=== PATIENT | male | born 1955 | race Caucasian/White ===

== ENCOUNTER → 2021-07-05 09:39 | Outpatient (CLI) | payer BC, SELFPAY ==
--- NOTE | 2021-07-05 09:43 | DI.RAD.S_ITS ---
PROCEDURE: XR KNEE RT 3V INDICATIONS: bilateral knee pain TECHNIQUE: 3 views of the knee were acquired. COMPARISON: None. FINDINGS: Bones: No fractures or dislocations. No suspicious bony lesions. Soft tissues: No joint effusion. No suspicious soft tissue calcifications. IMPRESSION: No significant osseous abnormality. Dictated by: Todd De La Paz M.D. on 07/05/2021 at 10:21 Approved by: Todd De La Paz M.D. on 07/05/2021 at 10:21
--- NOTE | 2021-07-05 09:43 | DI.RAD.S_ITS ---
PROCEDURE: XR KNEE LT 3V INDICATIONS: bilateral knee pain TECHNIQUE: 3 views of the knee were acquired. COMPARISON: None. FINDINGS: Bones: No fractures or dislocations. No suspicious bony lesions. Soft tissues: No joint effusion. No suspicious soft tissue calcifications. IMPRESSION: No significant osseous abnormality. Dictated by: Todd De La Paz M.D. on 07/05/2021 at 10:20 Approved by: Todd De La Paz M.D. on 07/05/2021 at 10:21
[2021-07-05 11:00] LABS: Add Manual Diff / Slide Review NO; Basophils Absolute Auto 100 /uL (0-100); Basophils Percent Auto 1.8 % (0-2); Eosinophils Absolute Auto 200 /uL (0-450); Eosinophils Percent Auto 3.4 % (2-4); Hematocrit 47.2 % (41-53); Hemoglobin 16.1 g/dL (13.5-17.5); Lymphocytes Absolute Auto 1200 /uL (1100-4500); Lymphocytes Percent Auto 25.9 % (25-40); Mean Corpuscular HGB Conc 34.1 % (30-36); Mean Corpuscular Hemoglobin 28.8 PG (26-34); Mean Corpuscular Volume 84.5 fL (80-100); Monocytes Absolute Auto 400 /uL (0-900); Monocytes Percent Auto 8.2 % (3-14); Neutrophils Absolute Auto 2700 /uL (1500-7000); Neutrophils Percent Auto 60.7 % (50-75); Platelet Count 195 X10^3/uL (150-400); Red Blood Cell Count 5.58 X10^6/uL (4.5-5.9); Red Cell Distribution Width 13.3 % (11.6-14.8); White Blood Cell Count 4.4 X10^3/uL (4.5-11.0)
[2021-07-05 11:21] LABS: Alanine Aminotransferase 27 IU/L (<50); Albumin 4.3 g/dL (3.5-5.0); Albumin Globulin Ratio 1.6 (1.0-2.8); Alkaline Phosphatase 54 U/L (38-126); Aspartate Aminotransferase 30 IU/L (17-59); BUN Creatinine Ratio 14.8 (6-22); Bilirubin Total 0.6 mg/dL (0.2-1.3); Blood Urea Nitrogen 13 mg/dL (9-20); Calcium 9.5 mg/dL (8.4-10.2); Carbon Dioxide 30 mmol/L (22-32); Chloride 106 mmol/L (98-107); Cholesterol 172 mg/dL (140-199); Estimated Glomerular Filt Rate > 60.0 mL/min (>60); Globulin 2.7 g/dL (1.7-4.1); Glucose 109 mg/dL (80-110); HDL Cholesterol 39 mg/dL (40-60); HEMOLYSIS 15 (0-50); LDL Cholesterol Calculated 118 mg/dL (<100); Potassium 4.1 mmol/L (3.4-5.1); Sodium 141 mmol/L (137-145); Triglycerides 77 mg/dL (35-150)
[2021-07-05 11:57] LABS: Prostate Specific Antigen Scrn < 0.064 ng/mL (0.1-4.0)
[2021-07-08 15:25] LABS: Percent Free Testosterone 2.77 % (1.50-4.20); Testosterone Free 13.36 ng/dL (5.00-21.00); Testosterone Total 482.2 ng/dL (264.0-916.0)
== END ==
PROVIDERS: PCP Family Medicine; Referring Provider Family Medicine; Visit Provider Family Medicine
DX: M25.561 Pain in right knee (principal); M25.562 Pain in left knee; C61 Malignant neoplasm of prostate; E34.9 Endocrine disorder, unspecified; E78.5 Hyperlipidemia, unspecified; R06.2 Wheezing
CPT/HCPCS: 36415; 73562; 80053; 80061; 84402; 84403; 85025; G0103

== ENCOUNTER → 2022-02-20 10:32 | Outpatient (CLI) | payer BC, SELFPAY ==
[2022-02-20 11:56] LABS: Add Manual Diff / Slide Review NO; Basophils Absolute Auto 100 /uL (0-100); Basophils Percent Auto 1.2 % (0-2); Eosinophils Absolute Auto 100 /uL (0-450); Eosinophils Percent Auto 2.3 % (2-4); Hematocrit 48.2 % (41-53); Hemoglobin 16.7 g/dL (13.5-17.5); Lymphocytes Absolute Auto 1500 /uL (1100-4500); Lymphocytes Percent Auto 29.5 % (25-40); Mean Corpuscular HGB Conc 34.6 % (30-36); Mean Corpuscular Hemoglobin 29.7 PG (26-34); Mean Corpuscular Volume 85.8 fL (80-100); Monocytes Absolute Auto 400 /uL (0-900); Monocytes Percent Auto 7.9 % (3-14); Neutrophils Absolute Auto 3100 /uL (1500-7000); Neutrophils Percent Auto 59.1 % (50-75); Platelet Count 192 X10^3/uL (150-400); Red Blood Cell Count 5.61 X10^6/uL (4.5-5.9); Red Cell Distribution Width 13.5 % (11.6-14.8); White Blood Cell Count 5.2 X10^3/uL (4.5-11.0)
[2022-02-20 12:19] LABS: Alanine Aminotransferase 31 IU/L (<50); Albumin 4.6 g/dL (3.5-5.0); Albumin Globulin Ratio 1.5 (1.0-2.8); Alkaline Phosphatase 58 U/L (38-126); Aspartate Aminotransferase 31 IU/L (17-59); BUN Creatinine Ratio 15.1 (6-22); Bilirubin Total 0.7 mg/dL (0.2-1.3); Blood Urea Nitrogen 14 mg/dL (9-20); Calcium 9.3 mg/dL (8.4-10.2); Carbon Dioxide 28 mmol/L (22-32); Chloride 104 mmol/L (98-107); Cholesterol 188 mg/dL (140-199); Estimated Glomerular Filt Rate > 60 mL/min (>60); Glucose 102 mg/dL (80-110); HDL Cholesterol 43 mg/dL (40-60); HEMOLYSIS < 15 (0-50); LDL Cholesterol Calculated 128 mg/dL (<100); Potassium 4.6 mmol/L (3.4-5.1); Sodium 139 mmol/L (137-145); Total Protein 7.6 g/dL (6.3-8.2); Triglycerides 87 mg/dL (35-150)
[2022-02-21 05:12] LABS: PSA Ultrasensitive 0.038 ng/mL (0.000-4.000)
== END ==
PROVIDERS: PCP Family Medicine; Referring Provider Family Medicine; Visit Provider Family Medicine
DX: Z85.46 Personal history of malignant neoplasm of prostate (principal); D49.2 Neoplasm of unspecified behavior of bone, soft tissue, and skin; E34.9 Endocrine disorder, unspecified; E78.2 Mixed hyperlipidemia; R06.2 Wheezing
CPT/HCPCS: 36415; 80053; 80061; 84153; 85025

== ENCOUNTER → 2022-03-10 09:57 | Outpatient (CLI) | payer MEDICARE, OTHER, SELFPAY ==
[2022-03-22 09:50] LABS: Percent Free Testosterone 2.17 % (1.50-4.20); Testosterone Free 14.19 ng/dL (5.00-21.00); Testosterone Total 653.9 ng/dL (264.0-916.0)
== END ==
PROVIDERS: PCP Family Medicine; Referring Provider Family Medicine; Visit Provider Family Medicine
DX: E34.9 Endocrine disorder, unspecified (principal)
CPT/HCPCS: 36415; 84402; 84403

== ENCOUNTER → 2022-04-11 09:19 | Outpatient (CLI) | payer MEDICARE, OTHER, SELFPAY ==
[2022-04-11 10:17] LABS: COVID19 -Nasal RAPID Negative (Negative)
--- NOTE | 2022-04-11 14:35 | PM.TREADMILL ---
Cardiac Stress Test Report Referral & Results Date Patient Seen: 04/11/22 Requesting provider: Ino Umanzor Indication: Abnormal resting ECG Rest ECG: Minimal ST elevation anterior precordial leads as well as limb leads Procedure Note: Today following both written and verbal informed consent the patient was exercised according to a standard Armani protocol patient went for a total of 13 minutes achieving a maximum heart rate of 152 maximum systolic blood pressure of 182. This is approximately 14.8 METS. Exercise was terminated at this point because of targets were met. Patient was also given Cardiolite through a previously started Hep-Lock IV by the diagnostic imaging staff approximately 1 minute prior to the cessation of exercise. With exercise patient did develop flat to upsloping ST segment depression in the precordial leads that almost immediately reverted to normal or baseline with cessation of activity. These are very unlikely to be ischemic given that rapid reversal. Occasional to rare PAC Function aerobic impairment way way off the scale best I can do is equate his exercise capacity to that of an active 37-year-old Impression: No evidence of ischemia, amazing exercise capacity, please see perfusion imaging report as well for additional details Please note: Actual ECG tracings can be found in the PACS system.
--- NOTE | 2022-04-11 20:10 | DI.NM.S_ITS ---
DATE OF SERVICE: 04/11/2022 PROCEDURE PERFORMED: Exercise treadmill stress and rest myocardial perfusion imaging study with gating to assess ejection fraction and regional wall motion. ORDERING PROVIDER: Dr. Ino Umanzor. INDICATIONS: The patient is a 67-year-old male with hyperlipidemia and an abnormal ECG. CARDIAC TREADMILL TESTING: The patient was able to exercise for 13 minutes on a standard Armani protocol, suggesting excellent exercise capacity, with an BOBBY of -48%. He had a normal heart rate and blood pressure response to exercise, achieving a maximum heart rate of 152 BPM (98% of his predicted maximum). He had no chest discomfort or other anginal symptoms. His resting ECG shows a probable ectopic atrial rhythm with possible LVH and diffuse ST elevation, most consistent with early repolarization. With exercise, he develops upsloping ST depression that resolves within 1 minute of recovery and thus is nonspecific for ischemia. He had no arrhythmias and his rhythm during exercise appears to be a more likely sinus rhythm. At 11 minutes, 58 seconds of exercise at a heart rate of 151 BPM, 25.9 millicuries of technetium-99m Myoview was injected and he was imaged 15 minutes later using a gated SPECT acquisition protocol. Earlier in the day while at rest, he had been injected with 12.0 millicuries of technetium-99m Myoview was imaged 20 minutes later, again using a gated SPECT acquisition protocol. FINDINGS: 1. Raw data: There is fairly good myocardial tracer uptake. There is evidence for probable diaphragmatic attenuation. The lung/heart ratio is normal at 0.25 with a normal TID ratio of 0.94. 2. Quantitated gated SPECT: Post-stress ejection fraction is estimated at 71% without any focal wall motion abnormality and specifically the inferior wall has normal contractility. The resting ejection fraction is estimated at 59%, although visually appears similar to the post-stress ejection fraction. Resting end-diastolic volume is normal at 109 mL. 3. Myocardial perfusion imaging: Post-stress supine images show mildly reduced tracer activity throughout the inferior wall in a pattern consistent with diaphragmatic attenuation, sparing the distal inferior wall and inferoapex. This defect completely resolves on the prone images, suggesting diaphragmatic attenuation. The resting images show an identical perfusion pattern without any areas of improvement. IMPRESSION: 1. Probable normal myocardial perfusion study. 2. Fixed inferior perfusion defect that resolves on prone imaging, most consistent with diaphragmatic attenuation artifact. There is no compelling evidence for myocardial ischemia or previous myocardial infarction. 3. Normal left ventricular systolic function without any focal wall motion abnormality. 4. Excellent exercise capacity without any angina or concerning ECG changes of ischemia. He likely had an ectopic atrial rhythm at rest that converted to sinus rhythm with exercise. Fito Jimenez - ROSARIO/lexii/camilla doc#: [id number]/job#: [id number] dd: 04/11/2022 16:23:00 dt: 04/11/2022 19:21:00 DICTATING /COPIES TO: Larry Roman MD COPIES MNE: KANDACE;
--- NOTE | 2022-04-11 20:18 | DI.NM.S_ITS ---
DATE OF SERVICE: 04/11/2022 PROCEDURE PERFORMED: Exercise treadmill stress and rest myocardial perfusion imaging study with gating to assess ejection fraction and regional wall motion. ORDERING PROVIDER: Dr. Ino Umanzor. INDICATIONS: The patient is a 67-year-old male with hyperlipidemia and an abnormal ECG. CARDIAC TREADMILL TESTING: The patient was able to exercise for 13 minutes on a standard Armani protocol, suggesting excellent exercise capacity with an BOBBY of - 48%. He had a normal heart rate and blood pressure response to exercise, achieving a maximum heart rate of 152 BPM (98% of his predicted maximum). He had no chest discomfort or other anginal symptoms. His resting ECG shows a probable ectopic atrial rhythm with possible LVH and diffuse ST elevation, most consistent with early repolarization. With exercise, he develops mild upsloping ST depression that resolves within 1 minute of recovery and thus is nonspecific for ischemia. He had no arrhythmias during exercise with a rhythm that appears to be a more likely sinus rhythm. At 11 minutes, 58 seconds of exercise, at a heart rate of 151 BPM, 25.9 millicuries of technetium-99m Myoview was injected and he was imaged 15 minutes later using a gated SPECT acquisition protocol. Earlier in the day while at rest, he had been injected with 12.0 millicuries of technetium-99m Myoview and was imaged 20 minutes later, again using a gated SPECT acquisition protocol. FINDINGS: 1. Raw data: There is fairly good myocardial tracer uptake. There is evidence for probable diaphragmatic attenuation. The lung/heart ratio is normal at 0.25 with a normal TID ratio of 0.94. 2. Quantitated gated SPECT: Post-stress ejection fraction is estimated at 71% without any focal wall motion abnormality and specifically the inferior wall has normal contractility. The resting ejection fraction is estimated at 59%, although visually appears similar to the post-stress ejection fraction. Resting end-diastolic volume is normal at 109 mL. 3. Myocardial perfusion imaging: Post-stress supine images show mildly reduced tracer activity throughout the inferior wall in a pattern consistent with diaphragmatic attenuation, sparing the distal inferior wall and inferoapex. This defect completely resolves on the prone images consistent with diaphragmatic attenuation. The resting images show an identical perfusion pattern without any areas of improvement. IMPRESSION: 1. Probable normal myocardial perfusion study. 2. Fixed inferior perfusion defect that resolves on prone imaging, most consistent with diaphragmatic attenuation artifact. There is no compelling evidence for myocardial ischemia or previous myocardial infarction. 3. Normal left ventricular systolic function without any focal wall motion abnormality. 4. Excellent exercise capacity without any angina or concerning ECG changes of ischemia. He likely had an ectopic atrial rhythm at rest that converted to sinus rhythm with exercise. Fito Jimenez - Leonidas/camilla doc#: [id number]/job#: [id number] dd: 04/11/2022 16:23:00 dt: 04/11/2022 19:21:00 DICTATING /COPIES TO: Larry Roman MD COPIES MNE: KANDACE;
== END ==
PROVIDERS: PCP Family Medicine; Referring Provider Family Medicine; Visit Provider Family Medicine
DX: R94.31 Abnormal electrocardiogram [ECG] [EKG] (principal); E78.5 Hyperlipidemia, unspecified; Z20.822 Contact with and (suspected) exposure to COVID-19
CPT/HCPCS: 78452; 87635; 93016; 93017; 93018; A9502

== ENCOUNTER 2022-08-29 09:50 | Emergency (ER) | payer MEDICARE, OTHER, SELFPAY ==
[2022-08-29 10:05] VITALS: BP 160/73; PULSE 57; RESP 18; TEMP 36.5; O2SAT 97; BMI 23.9
[2022-08-29 10:09] VITALS: PULSE 56; O2SAT 98
[2022-08-29 10:10] VITALS: BP 142/80; PULSE 58; O2SAT 98
[2022-08-29 10:30] VITALS: BP 113/77; PULSE 53; O2SAT 97
[2022-08-29 10:32] LABS: Add Manual Diff / Slide Review NO; Basophils Absolute Auto 100 /uL (0-100); Basophils Percent Auto 0.9 % (0-2); Eosinophils Absolute Auto 200 /uL (0-450); Eosinophils Percent Auto 2.6 % (2-4); Hematocrit 47.2 % (41-53); Hemoglobin 15.9 g/dL (13.5-17.5); Lymphocytes Absolute Auto 1400 /uL (1100-4500); Lymphocytes Percent Auto 22.9 % (25-40); Mean Corpuscular HGB Conc 33.6 % (30-36); Mean Corpuscular Hemoglobin 28.8 PG (26-34); Mean Corpuscular Volume 85.5 fL (80-100); Monocytes Absolute Auto 500 /uL (0-900); Monocytes Percent Auto 8.1 % (3-14); Neutrophils Absolute Auto 3900 /uL (1500-7000); Neutrophils Percent Auto 65.5 % (50-75); Platelet Count 204 X10^3/uL (150-400); Red Blood Cell Count 5.51 X10^6/uL (4.5-5.9); Red Cell Distribution Width 13.3 % (11.6-14.8); White Blood Cell Count 5.9 X10^3/uL (4.5-11.0)
[2022-08-29 10:33] LABS: INR 1.1 (0.9-1.3); Prothrombin Time 12.1 SECONDS (10.1-12.7)
[2022-08-29 10:36] LABS: PTT Partial Thromboplastin Tim 33 SECONDS (26-36)
[2022-08-29 10:41] LABS: Alanine Aminotransferase 27 IU/L (<50); Albumin 4.2 g/dL (3.5-5.0); Albumin Globulin Ratio 1.4 (1.0-2.8); Alkaline Phosphatase 49 U/L (38-126); Aspartate Aminotransferase 32 IU/L (17-59); BUN Creatinine Ratio 16.7 (6-22); Blood Urea Nitrogen 13 mg/dL (9-20); Calcium 9.1 mg/dL (8.4-10.2); Carbon Dioxide 28 mmol/L (22-32); Chloride 105 mmol/L (98-107); Estimated Glomerular Filt Rate > 60 mL/min (>60); Globulin 3.1 g/dL (1.7-4.1); Glucose 97 mg/dL (80-110); HEMOLYSIS < 15 (0-50); Potassium 3.7 mmol/L (3.4-5.1); Sodium 138 mmol/L (137-145); Total Protein 7.3 g/dL (6.3-8.2)
--- NOTE | 2022-08-29 10:51 | ED_ITS ---
HPI - GI Bleed General Chief complaint: GI Bleed Stated complaint: blood in stool T-7 Time Seen by Provider: 08/29/22 10:48 Source: patient Mode of arrival: Ambulatory History of Present Illness HPI Narrative: This is a 67-year-old male with prior partial colectomy for adenoma, prostate cancer with prostatectomy after radiation. Patient states he noticed bright red blood in his stool for the past week intermittently. He denies any rectal pain or abdominal pain. No fevers or chills. No nausea or vomiting. No lightheadedness or passing out, no chest pain or shortness of breath. He states stools have been well formed blood seems to be mixed in. He has not seen any black stools. Has not had any diarrhea like stools. Patient denies any dysuria, urgency or frequency. Patient states he is had prior partial colectomy after he had an adenoma found on colonoscopy for bright red rectal bleeding. He states he had follow-up colonoscopy 1 year after that had 1 polyp removed had another colonoscopy was negative and is due to have repeat 3 years from them which would be 2023. Patient states his treatment was in [place] did have prostatectomy after radiation for prostate cancer after he had recurrence. He is on medication to boost testosterone clomiphene. He denies any other daily medications. Denies tobacco, no illicit. Dr. Spain is his primary care physician. Related Data Home Medications Medication Instructions Recorded Confirmed albuterol sulfate 90 mcg/actuation 2 puff inhalation Q6H PRN 07/05/21 03/10/22 aerosol inhaler Previous Rx's Medication Instructions Recorded montelukast 10 mg tablet 10 mg PO BEDTIME #90 tabs 08/04/21 (Singulair) clomiphene citrate 50 mg tablet 50 mg PO DAILY #90 tabs 11/08/21 scopolamine base 1 mg over 3 days 1 patch transdermal Q3D PRN motion 01/10/22 transdermal patch sickness #4 ea fluticasone 250 mcg-salmeterol 50 1 inh inhalation BID #60 ea 03/10/22 mcg/dose blistr powdr for inhalation (Advair Diskus) sildenafil 50 mg tablet (Viagra) 50 mg PO DAILY PRN sexual activity 03/10/22 #30 tabs budesonide-formoterol HFA 80 2 puff inhalation BID #10.2 grams 04/13/22 mcg-4.5 mcg/actuation aerosol inhaler (Symbicort) Allergies Allergy/AdvReac Type Severity Reaction Status Date / Time acetaminophen [From Tylenol] Allergy Mild Verified 05/04/22 09:16 Review of Systems Review of Systems ROS Unobtainable: All systems reviewed & are unremarkable except as noted in HPI and below Patient History Medical History Hyperlipidemia Prostate CA Testosterone deficiency Wheezing Social History Smoking Status: Never smoker Smoking Status: Never smoker Substance Use Type: does not use Exam Narrative Exam Narrative: GENERAL: Alert and oriented x three, male in mild distress. HEENT: Head normocephalic, atraumatic, EOMI, pupils reactive, face symmetric, moist mucous membranes NECK: Supple, full range of motion CARDIOVASCULAR: Regular rate and rhythm without murmurs, rubs or gallops. RESPIRATORY: Breath sounds equal bilaterally, no wheezes rales or rhonchi. ABDOMEN: Soft, nontender. Nondistended. Normoactive bowel sounds all 4 quadrants. No guarding or rebound, rigidity, no mass, on rectal exam patient has external hemorrhoid nontender no active blood. Digital rectal exam no internal hemorrhoid clearly felt there is a small scant amount of pink on the exam which is Hemoccult positive. There is no black there was no bright red blood or active bleeding appreciated. Patient is nontender on THOMPSON. No masses appreciated. : No CVA tenderness EXTREMITIES: Normal range of motion, no clubbing or edema. Neurovascularly intact NEUROLOGICAL: Cranial nerves II through XII grossly intact. Moving all extremities SKIN: Warm, dry, no petechiae, no rashes or lesions. Initial Vital Signs Initial Vital Signs: Vital Signs Temperature 97.7 F 08/29/22 10:05 Pulse Rate 57 L 08/29/22 10:05 Respiratory Rate 18 08/29/22 10:05 Blood Pressure 160/73 H 08/29/22 10:05 Pulse Oximetry 97 08/29/22 10:05 Oxygen Delivery Method Room Air 08/29/22 10:05 Course Orders Ordered: ED Orders 08/29/22 10:14 Complete Blood Count AUTO DIFF Stat Comprehensive Metabolic Panel Stat PTT Partial Thromboplastin Gage Stat Prothrombin Time INR Stat Type and Screen Stat Discontinued Medications Ondansetron HCl (Ondansetron 4 Mg/2 Ml Inj) 4 mg IV NOW PRN PRN Reason: Nausea And Vomiting Ondansetron HCl (Ondansetron 4 Mg Odt) 4 mg SL NOW PRN PRN Reason: Nausea And Vomiting Vital Signs Vital signs: Vital Signs - 8 hr 08/29/22 10:05 08/29/22 10:09 08/29/22 10:10 Temperature 97.7 F Pulse Rate 57 L 56 L Respiratory Rate 18 Blood Pressure 160/73 H 142/80 H Pulse Oximetry 97 98 Oxygen Delivery Method Room Air 08/29/22 10:10 08/29/22 10:30 08/29/22 10:30 Temperature Pulse Rate 58 L 53 L Respiratory Rate Blood Pressure 113/77 Pulse Oximetry 98 97 Oxygen Delivery Method Room Air 08/29/22 11:00 08/29/22 11:00 08/29/22 11:30 Temperature Pulse Rate 56 L Respiratory Rate Blood Pressure 132/81 139/78 Pulse Oximetry 97 Oxygen Delivery Method 08/29/22 11:30 Temperature Pulse Rate 53 L Respiratory Rate Blood Pressure Pulse Oximetry 99 Oxygen Delivery Method Room Air MDM - GI Bleed Lab Data 08/29/22 10:14 08/29/22 10:14 Labs: Lab Results 08/29/22 08/29/22 08/29/22 Range/Units 10:14 10:14 10:14 WBC 5.9 (4.5-11.0) X10^3/uL RBC 5.51 (4.5-5.9) X10^6/uL Hgb 15.9 (13.5-17.5) g/dL Hct 47.2 (41-53) % MCV 85.5 (80-100) fL MCH 28.8 (26-34) PG MCHC 33.6 (30-36) % RDW 13.3 (11.6-14.8) % Plt Count 204 (150-400) X10^3/uL Neut % (Auto) 65.5 (50-75) % Lymph % (Auto) 22.9 L (25-40) % [place] % (Auto) 8.1 (3-14) % Eos % (Auto) 2.6 (2-4) % Baso % (Auto) 0.9 (0-2) % Neut # (Auto) 3900 (0375-8560) /uL Lymph # (Auto) 1400 (2927-2485) /uL [place] # (Auto) 500 (0-900) /uL Eos # (Auto) 200 (0-450) /uL Baso # (Auto) 100 (0-100) /uL PT 12.1 (10.1-12.7) SECONDS INR 1.1 (0.9-1.3) APTT 33 (26-36) SECONDS Sodium 138 (137-145) mmol/L Potassium 3.7 (3.4-5.1) mmol/L Chloride 105 (98-107) mmol/L Carbon Dioxide 28 (22-32) mmol/L BUN 13 (9-20) mg/dL Creatinine 0.78 (0.66-1.25) mg/dL Estimated GFR > 60 (>60) mL/min BUN/Creatinine Ratio 16.7 (6-22) Glucose 97 (80-110) mg/dL Calcium 9.1 (8.4-10.2) mg/dL Total Bilirubin 1.0 (0.2-1.3) mg/dL AST 32 (17-59) IU/L ALT 27 (<50) IU/L Alkaline Phosphatase 49 (38-126) U/L Total Protein 7.3 (6.3-8.2) g/dL Albumin 4.2 (3.5-5.0) g/dL Globulin 3.1 (1.7-4.1) g/dL Albumin/Globulin Ratio 1.4 (1.0-2.8) Blood Type Antibody Screen 08/29/22 Range/Units 10:14 WBC (4.5-11.0) X10^3/uL RBC (4.5-5.9) X10^6/uL Hgb (13.5-17.5) g/dL Hct (41-53) % MCV (80-100) fL MCH (26-34) PG MCHC (30-36) % RDW (11.6-14.8) % Plt Count (150-400) X10^3/uL Neut % (Auto) (50-75) % Lymph % (Auto) (25-40) % [place] % (Auto) (3-14) % Eos % (Auto) (2-4) % Baso % (Auto) (0-2) % Neut # (Auto) (3956-3321) /uL Lymph # (Auto) (3869-0054) /uL [place] # (Auto) (0-900) /uL Eos # (Auto) (0-450) /uL Baso # (Auto) (0-100) /uL PT (10.1-12.7) SECONDS INR (0.9-1.3) APTT (26-36) SECONDS Sodium (137-145) mmol/L Potassium (3.4-5.1) mmol/L Chloride (98-107) mmol/L Carbon Dioxide (22-32) mmol/L BUN (9-20) mg/dL Creatinine (0.66-1.25) mg/dL Estimated GFR (>60) mL/min BUN/Creatinine Ratio (6-22) Glucose (80-110) mg/dL Calcium (8.4-10.2) mg/dL Total Bilirubin (0.2-1.3) mg/dL AST (17-59) IU/L ALT (<50) IU/L Alkaline Phosphatase (38-126) U/L Total Protein (6.3-8.2) g/dL Albumin (3.5-5.0) g/dL Globulin (1.7-4.1) g/dL Albumin/Globulin Ratio (1.0-2.8) Blood Type O Positive Antibody Screen Negative [facility] Narrative Medical decision making narrative: This is a 67-year-old male with painless rectal bleeding patient has overall benign exam vitals are appropriate he is not hypotensive he is not tachycardic his hemoglobin is appropriate, BUN is not elevated and CMP CBC platelets are otherwise negative. Rectal exam shows hemorrhoid but is not actively bleeding and he does have a scant amount of blood more internally on exam I do not feel a mass. Discussed with patient he does need to follow-up for colonoscopy screening she would be the most appropriate next step. Discussed with patient he needs to follow up for colonoscopy for screening was given referral to General surgery can also follow up with Gastroenterology if he prefers. We did discuss return precautions. He is not on any thinners or other medications that would prompt bleeding. He is higher risk for reoccurrence of cancer so felt to be very appropriate for screening. Discharge Plan Departure Patient Disposition: Home Clinical Impression: Rectal bleeding Activity Restrictions/Additional Instructions: Call or stop by the office to set up follow-up for colonoscopy for your rectal bleeding. Had recommend that you call today to set up an appointment for screening. You can continue your home medications as prescribed. Please return for fevers no abdominal back or flank pain, if you are having increasing bleeding, lightheadedness, passing out, chest pain or shortness of breath, large clots or other new or concerning changes. Prescriptions: No Action clomiphene citrate 50 mg tablet 50 mg PO DAILY Qty: 90 3RF scopolamine base 1 mg over 3 days patch 3 day 1 patch transdermal Q3D PRN (Reason: motion sickness) Qty: 4 3RF budesonide-formoterol [Symbicort] 80-4.5 mcg/actuation HFA aerosol inhaler 2 puff inhalation BID Qty: 10.2 3RF albuterol sulfate 90 mcg/actuation HFA aerosol inhaler 2 puff inhalation Q6H PRN montelukast [Singulair] 10 mg tablet 10 mg PO BEDTIME Qty: 90 3RF fluticasone propion-salmeterol [Advair Diskus] 250-50 mcg/dose blister with device 1 inh inhalation BID Qty: 60 3RF sildenafil [Viagra] 50 mg tablet 50 mg PO DAILY PRN (Reason: sexual activity) Qty: 30 1RF Rx Instructions: administer 30 minutes to 4 hours before activity Referrals: Ino Umanzor MD [Primary Care Provider] - Arnav Dugan MD [Physician] - Jaziel Robledo MD [Physician] - Stand Alone Forms: Patient Portal/API
[2022-08-29 11:00] VITALS: BP 132/81; PULSE 56; O2SAT 97
[2022-08-29 11:30] VITALS: BP 139/78; PULSE 53; O2SAT 99
== END 2022-08-29 11:32 | disposition home or self-care (01) ==
PROVIDERS: Emergency Provider Emergency Medicine; PCP Family Medicine
DX: K62.5 Hemorrhage of anus and rectum (principal)
CPT/HCPCS: 36415; 80053; 85025; 85610; 85730; 86850; 86900; 86901; 99283

== ENCOUNTER → 2022-10-05 10:22 | Outpatient (CLI) | payer MEDICARE, OTHER, SELFPAY ==
[2022-10-05 11:18] LABS: Appearance Urine UA CLEAR; Bilirubin Urine UA NEGATIVE (NEGATIVE); Color Urine UA YELLOW; Glucose Urine UA NEGATIVE (Negative); Ketones Urine UA NEGATIVE (NEGATIVE); Leukocyte Esterase Urine UA NEGATIVE (NEGATIVE); Nitrite Urine UA NEGATIVE (Negative); Occult Blood Urine UA 2+ (Negative); Protein Urine UA NEGATIVE (Negative); Urobilinogen Urine UA 0.2 E.U./dL (0.2); pH Urine UA 6.5 (4.5-8.0)
[2022-10-05 11:22] LABS: Add Manual Diff / Slide Review NO; Basophils Absolute Auto 100 /uL (0-100); Basophils Percent Auto 1.5 % (0-2); Eosinophils Absolute Auto 100 /uL (0-450); Eosinophils Percent Auto 2.5 % (2-4); Hematocrit 47.7 % (41-53); Hemoglobin 16.1 g/dL (13.5-17.5); Lymphocytes Absolute Auto 1400 /uL (1100-4500); Lymphocytes Percent Auto 26.2 % (25-40); Mean Corpuscular HGB Conc 33.8 % (30-36); Mean Corpuscular Hemoglobin 28.9 PG (26-34); Mean Corpuscular Volume 85.5 fL (80-100); Monocytes Absolute Auto 400 /uL (0-900); Monocytes Percent Auto 7.5 % (3-14); Neutrophils Absolute Auto 3300 /uL (1500-7000); Neutrophils Percent Auto 62.3 % (50-75); Platelet Count 195 X10^3/uL (150-400); Red Blood Cell Count 5.58 X10^6/uL (4.5-5.9); Red Cell Distribution Width 13.1 % (11.6-14.8); White Blood Cell Count 5.4 X10^3/uL (4.5-11.0)
[2022-10-05 11:42] LABS: RBC Urine 1-5/HPF (0-5/HPF)
[2022-10-05 11:43] LABS: Bacteria Urine None Seen; Culture Indicated Urine Cult Not Indicated; WBC Urine None Seen (0-5/HPF)
[2022-10-05 12:01] LABS: Alanine Aminotransferase 30 IU/L (<50); Albumin Globulin Ratio 1.3 (1.0-2.8); Alkaline Phosphatase 55 U/L (38-126); Aspartate Aminotransferase 29 IU/L (17-59); BUN Creatinine Ratio 17.4 (6-22); Bilirubin Total 0.7 mg/dL (0.2-1.3); Blood Urea Nitrogen 15 mg/dL (9-20); Calcium 8.9 mg/dL (8.4-10.2); Carbon Dioxide 29 mmol/L (22-32); Chloride 104 mmol/L (98-107); Cholesterol 180 mg/dL (140-199); Estimated Glomerular Filt Rate > 60 mL/min (>60); Glucose 100 mg/dL (80-110); HDL Cholesterol 38 mg/dL (40-60); HEMOLYSIS < 15 (0-50); LDL Cholesterol Calculated 118 mg/dL (<100); Sodium 138 mmol/L (137-145); Triglycerides 118 mg/dL (35-150)
[2022-10-06 07:25] LABS: PSA Ultrasensitive 0.037 ng/mL (0.000-4.000)
[2022-10-11 07:36] LABS: Percent Free Testosterone 1.51 % (1.50-4.20); Testosterone Free 11.29 ng/dL (5.00-21.00); Testosterone Total 747.8 ng/dL (264.0-916.0)
== END ==
PROVIDERS: PCP Family Medicine; Referring Provider Family Medicine; Visit Provider Family Medicine
DX: C61 Malignant neoplasm of prostate (principal); E78.2 Mixed hyperlipidemia; E34.9 Endocrine disorder, unspecified; G47.19 Other hypersomnia; R06.2 Wheezing
CPT/HCPCS: 36415; 80053; 80061; 81001; 84153; 84402; 84403; 85025

== ENCOUNTER 2022-10-12 11:27 | Day surgery (SDC) | payer MEDICARE, OTHER, SELFPAY ==
--- NOTE | 2022-10-12 | PATH_ITS ---
[facility] Accession Number: [id number] No. of containers..01 Tissue . 01 Material submitted: . colon - TRANSVERSE POLYP . 01 Diagnosis: Transverse Colon, Polyp, Biopsy: Tubular adenoma. [facility] 10/17/2022 1517 Local . 01 Electronically signed: . Lilibeth Palomares MD, Pathologist NPI- [id number] . 01 Gross description: . TRANSVERSE POLYP: Received in formalin is 1 fragment(s) of murguia, soft tissue measuring 0.5 x 0.4 x 0.3 cm submitted entirely in 1 cassette(s) /[facility] 10/13/2022 1330 Local . 01 Pathologist provided ICD-10: D12.3 . 01 CPT . 125315 Specimen Comment: A courtesy copy of this report has been sent to [phone] Performed at: 01 [facility] [address] [place] [address], [place], [place] [id number] MD Baljit Roman MD Phone: [phone]
[2022-10-12 11:49] VITALS: BP 114/74; PULSE 60; RESP 18; TEMP 36.3; O2SAT 97; BMI 22.5
[2022-10-12] MEDS: LACTATED RINGERS 1,000 ML 42 ML IV (11:57)
--- NOTE | 2022-10-12 12:40 | P.HP_ITS ---
History of Present Illness History of Present Illness Date Patient Seen: 10/12/22 Time Patient Seen: 12:40 Chief complaint: [facility] [place] Narrative: Fito is here for his colonoscopy. Please see the prior office note from September for details. PFSH Medical History Hyperlipidemia Prostate CA Testosterone deficiency Wheezing Social History household members: spouse Smoking Status: Never smoker alcohol intake: current Meds Home Medications and Allergies Home Medications Medication Instructions Recorded Confirmed Type clomiphene citrate 50 mg tablet 50 mg PO DAILY #90 tabs 11/08/21 10/12/22 Rx scopolamine base 1 mg over 3 days 1 patch transdermal Q3D PRN motion 01/10/22 10/10/22 Rx transdermal patch sickness #4 ea sildenafil 50 mg tablet (Viagra) 50 mg PO DAILY PRN sexual activity 03/10/22 10/12/22 Rx #30 tabs sodium sul 1.479 gram-potas ch See Rx Instructions PO PER PKG DIR 09/04/22 10/10/22 Rx 0.188 gram-magnes sul 0.225 gram #24 tabs tablet (Sutab) Allergies Allergy/AdvReac Type Severity Reaction Status Date / Time acetaminophen [From Tylenol] Allergy Mild Verified 10/12/22 11:43 Exam Vital Signs (past 8 hours): - 10/12/22 11:49 Temperature 97.3 F L Pulse Rate 60 Respiratory Rate 18 Blood Pressure 114/74 Pulse Oximetry 97 Oxygen Delivery Method Room Air Oxygen Delivery Method Room Air Const General: healthy appearing Assessment & Plan Assessment and plan (1) Rectal bleeding: Status: Inactive Plan Fito is a 67-year-old man who is here because of rectal bleeding. See office note from September for details. He believes he may also have an internal hemorrhoid. We talked about possibility of performing rubber-band ligation at the conclusion of the colonoscopy and he would be interested in that as well.
[2022-10-12 13:08] VITALS: BP 108/77; PULSE 55; RESP 23; TEMP 36.3; O2SAT 94
--- NOTE | 2022-10-12 13:12 | PM.OP.COLON ---
Operative Date/Time/Diagnoses Date of procedure: 10/12/22 Time of procedure: 13:12 Pre-op diagnosis: Rectal bleeding Post-op diagnosis: same Procedure & Clinicians Study performed: Colonoscopy Same procedure as scheduled: Yes Surgeon: Jayjay Leon Procedure Notes Procedure in detail: Surgeon: Jayjay Leon MD Anesthesia: Dr. Jesse SONG Procedure: The patient was brought to the endoscopy suite, placed in left lateral decubitus position. The patient was connected to monitoring devices. A time-out was performed. Sedation was administered. Once the patient was adequately sedated, a digital rectal exam was performed and was normal. The scope was then inserted and advanced to the cecum where the appendiceal orifice was identified and photographed. The scope was then slowly withdrawn over greater than 6 minutes. The mucosa was thoroughly inspected. There was a 5 mm polyp in the transverse colon removed with a cold snare. The scope was retroflexed in the rectum. There were some small internal hemorrhoids just at the dentate line. The scope was straightened and removed. The patient was awakened and brought to recovery. Scope withdrawal time: 11 minutes Sedation time: 15 minutes EBL: 2 mL Findings: Small transverse colon polyp and small internal hemorrhoids Post-procedure Disposition: PACU
[2022-10-12 13:13] VITALS: BP 110/82; PULSE 55; PULSE 62; RESP 10; RESP 13; O2SAT 92
[2022-10-12 13:18] VITALS: BP 114/83; PULSE 63; RESP 10; O2SAT 94
[2022-10-12 13:23] VITALS: BP 114/82; PULSE 51; RESP 10; O2SAT 95
[2022-10-12 13:31] VITALS: BP 116/81; PULSE 51; RESP 17; TEMP 36.7; O2SAT 95
== END 2022-10-12 13:55 | disposition home or self-care (01) ==
PROVIDERS: PCP Family Medicine; Referring Provider Surgery; Visit Provider Surgery
PROC: 0DJD8ZZ Inspection of Lower Intestinal Tract, Via Natural or Artificial Opening Endoscopic (ICD-10-PCS; CPT 45378; principal; 2022-10-12 12:45)
DX: K62.5 Hemorrhage of anus and rectum (principal); D12.3 Benign neoplasm of transverse colon
CPT/HCPCS: 45385; J2704; J3010

== ENCOUNTER 2022-12-21 10:00 | Outpatient (RCR) | payer MEDICARE, OTHER, SELFPAY ==
--- NOTE | 2022-12-21 17:05 | PT.OIE ---
Current Diagnoses Strain of other muscle(s) and tendon(s) at lower leg level, unspecified leg, initial encounter (12/21/22) Strain of other muscle(s) and tendon(s) at lower leg level, unspecified leg, subsequent encounter (12/21/22) Past Medical History (Last Reviewed 09/04/22 @ 14:36 by Lionel Chua RN) Hyperlipidemia Prostate CA Testosterone deficiency Wheezing Visit Care Team Role Provider Type Ino Umanzor MD Attending Provider Physician Family Provider Primary Care Provider Referring Provider Specialty: Family Practice Address: [address] [place] [address] Email: [email or web address] Physical Therapy Initial Evaluation PT-OP-A Visit Information Start: 12/21/22 11:48 Freq: Status: Active Protocol: Document 12/21/22 10:15 DCW (Rec: 12/21/22 17:03 DCW [id number]) Out-Patient Physical Therapy Visit Information Visit Information Visit Type Initial Evaluation Visit Start Time 10:15 Visit Stop Time 11:00 Total Visit Minutes 45 Visit Number 1 Number of COOLER SERVICER Visits 0 Evaluation Information Evaluation Date 12/21/22 PT-OP-B Current Condition Start: 12/21/22 09:28 Freq: Status: Active Protocol: Document 12/21/22 10:15 DCW (Rec: 12/21/22 17:03 DCW [id number]) Current Condition History of Current Condition Onset Date Multi-year history Current Complaints Infrequent calf strains History of Current Condition Pt is a 67 year old male presenting with infrequent calf strains. Pt is a runner, reports he runs multiple times a week, and reports that 1-2x /year, he gets mild-moderate calf strains. Pt reports it is never while sprinting or on steep hills, it just seems to occur on flat surfaces with a relatively moderate pace. Can occur on either side, and pt reports he will typically need to take 2-3 weeks off from running to allow it to recover . Reports he usually stretches his calves pre- and post- workout. PT-OP-C Subjective Start: 12/21/22 11:48 Freq: Status: Active Protocol: Document 12/21/22 10:15 DCW (Rec: 12/21/22 17:03 DCW [id number]) OP-PT Subjective Patient Comments Patient Comments I really just want someone to assess me and see if you can figure out what is happening. Patient Questionnaires Lower Extremity Functional Scale LEFS Score 76/80 = 95% PT-OP-F Manual Assessment Start: 12/21/22 11:48 Freq: Status: Active Protocol: Document 12/21/22 10:15 DCW (Rec: 12/21/22 17:03 DCW [id number]) Manual Assessments Soft Tissue Assessment Soft Tissue Mobility Assessment Mild calf tightness bilaterall , tenderness to palpation 1/4, complaint of pain, along Myotendinous Junction PT-OP-G Mobility & Gait Start: 12/21/22 11:48 Freq: Status: Active Protocol: Document 12/21/22 10:15 DCW (Rec: 12/21/22 17:03 DCW [id number]) OP Gait Assessment Gait Gait Assistance Required: Independent Factors Limiting Gait Function Factors Limiting Gait Function Limited Range of Motion Comments Gait Comments Running on treadmill 5'. Flat- footed strike bilaterally, mildly decreased dorsiflexion. PT-OP-K Range of Motion Start: 12/21/22 11:48 Freq: Status: Active Protocol: Document 12/21/22 10:15 DCW (Rec: 12/21/22 17:03 DCW [id number]) Ankle and Foot Goniometric Range of Motion Ankle and Foot Right Active Testing Position Sitting Dorsiflexion with Knee Flexed 3 Plantarflexion 45 Inversion 28 Eversion 20 Comments DF with knee extended: lacking 5? from neutral Left Active Testing Position Sitting Dorsiflexion with Knee Flexed 5 Plantarflexion 45 Inversion 30 Eversion 20 Comments DF with knee extended: lacking 3? from neutral PT-OP-L Special Tests Start: 12/21/22 11:48 Freq: Status: Active Protocol: Document 12/21/22 10:15 DCW (Rec: 12/21/22 17:03 DCW [id number]) Special Tests Hip Special Tests Sharron's Test Test Results Positive bilaterally PT-OP-M Strength Start: 12/21/22 11:48 Freq: Status: Active Protocol: Document 12/21/22 10:15 DCW (Rec: 12/21/22 17:03 DCW [id number]) Ankle/Foot Strength Ankle and Foot Manual Muscle Testing Right Dorsiflexion (L4) 5 Normal Plantarflexion (S1) 5 Normal Left Dorsiflexion (L4) 5 Normal Plantarflexion (S1) 5 Normal PT-OP-Q Treatments Start: 12/21/22 11:48 Freq: Status: Active Protocol: Document 12/21/22 10:15 DCW (Rec: 12/21/22 17:04 DCW [id number]) Therapeutic Exercises Supine Exercises Hip flexors Supine Exercise Name Percy stretch Side bilateral Standing Exercises Calf stretch Standing Exercise Name Runner's stretch, calf stretch off step Side bilateral PT-OP-T Assessment and Plan Start: 12/21/22 11:48 Freq: Status: Active Protocol: Document 12/21/22 10:15 DCW (Rec: 12/21/22 17:03 DCW [id number]) Physical Therapy Assessment Rehab Potential Rehabilitation Potential Excellent Evaluation Complexity Number of Personal Factors/Comorbidities 0 Number of Body Systems Impaired 1-2 Clinical Presentation at Evaluation Stable Impairments Impairments Soft Tissue Mobility Assessment Summary Assessment Pt examination largely unremarkable, other than some very mild calf tightness resulted in decreased dorsiflexion, as well as hip flexor tightness. Running on treadmill causes pt to have a flat-foot foot strike, but this is not replicated on flat -surface running. Discussed with pt his typical pre-and post run stretching. Pt reports he holds stretches 15- 20 seconds. Admits he feels like he notices he strains his calf when he does extra stretching. Discussed importance of dynamic stretching and warm up prior to activity, and then working on static stretching with 30- 40 second holds post workout. Pt very happy with this advice . Therapist and patient in agreement that pt unlikely to benefit from any further skilled therapeutic intervention. Pt will be discharged from skilled therapy at this time. Physical Therapy Plan Frequency and Duration Frequency of Treatment 1x/Week Plan of Care Start Date 12/21/22 Plan of Care End Date 12/22/22 Discharge Physical Therapy Discharge Reasons No Longer Attending PT Next Visit Focus/Plan Next Note Type Discharge Summary
--- NOTE | 2022-12-21 17:05 | PT.OPPOC ---
Physical, Occupational & Speech Therapy At [facility] Current Diagnoses Strain of other muscle(s) and tendon(s) at lower leg level, unspecified leg, initial encounter (12/21/22) Strain of other muscle(s) and tendon(s) at lower leg level, unspecified leg, subsequent encounter (12/21/22) Visit Care Team Role Provider Type Ino Umanzor MD Attending Provider Physician Family Provider Primary Care Provider Referring Provider Specialty: Family Practice Address: [address] [place] [address] Email: [email or web address] Plan Of Care PT-OP-T Assessment and Plan Start: 12/21/22 11:48 Freq: Status: Active Protocol: Document 12/21/22 10:15 DCW (Rec: 12/21/22 17:03 DCW [id number]) Physical Therapy Assessment Rehab Potential Rehabilitation Potential Excellent Evaluation Complexity Number of Personal Factors/Comorbidities 0 Number of Body Systems Impaired 1-2 Clinical Presentation at Evaluation Stable Impairments Impairments Soft Tissue Mobility Assessment Summary Assessment Pt examination largely unremarkable, other than some very mild calf tightness resulted in decreased dorsiflexion, as well as hip flexor tightness. Running on treadmill causes pt to have a flat-foot foot strike, but this is not replicated on flat -surface running. Discussed with pt his typical pre-and post run stretching. Pt reports he holds stretches 15- 20 seconds. Admits he feels like he notices he strains his calf when he does extra stretching. Discussed importance of dynamic stretching and warm up prior to activity, and then working on static stretching with 30- 40 second holds post workout. Pt very happy with this advice . Therapist and patient in agreement that pt unlikely to benefit from any further skilled therapeutic intervention. Pt will be discharged from skilled therapy at this time. Physical Therapy Plan Frequency and Duration Frequency of Treatment 1x/Week Plan of Care Start Date 12/21/22 Plan of Care End Date 12/22/22 Discharge Physical Therapy Discharge Reasons No Longer Attending PT Next Visit Focus/Plan Next Note Type Discharge Summary Plan of Care Dates Plan of Care Start Date 12/21/22 Plan of Care End Date 12/22/22 Electronically Signed by: Feliciano Khan, PT 12/21/22 1705 If you are in agreement with this Plan of Care, please return a signed and dated copy. I have reviewed this Plan of Care and certify that the skilled therapy services above are required to meet the patient?s needs. Physician Signature Date Printed Name and Credentials Clinical Instructor Signature Printed Name and Credentials
== END 2022-12-22 15:18 | disposition home or self-care (01) ==
LOC: PHYS 10:00
PROVIDERS: Family Provider Family Medicine; PCP Family Medicine; Referring Provider Family Medicine; Visit Provider Family Medicine
DX: S86.819A Strain of other muscle(s) and tendon(s) at lower leg level, unspecified leg, initial encounter (principal); S86.819D Strain of other muscle(s) and tendon(s) at lower leg level, unspecified leg, subsequent encounter
CPT/HCPCS: 97110; 97161

== ENCOUNTER → 2023-04-12 09:48 | Outpatient (CLI) | payer MEDICARE, OTHER, SELFPAY ==
[2023-04-12 11:01] LABS: Add Manual Diff / Slide Review NO; Basophils Absolute Auto 100 /uL (0-100); Basophils Percent Auto 1.2 % (0-2); Eosinophils Absolute Auto 200 /uL (0-450); Eosinophils Percent Auto 3.3 % (2-4); Hematocrit 47.8 % (41-53); Hemoglobin 16.2 g/dL (13.5-17.5); Lymphocytes Absolute Auto 1200 /uL (1100-4500); Lymphocytes Percent Auto 20.1 % (25-40); Mean Corpuscular HGB Conc 33.9 % (30-36); Mean Corpuscular Hemoglobin 28.9 PG (26-34); Mean Corpuscular Volume 85.4 fL (80-100); Monocytes Absolute Auto 500 /uL (0-900); Monocytes Percent Auto 7.6 % (3-14); Neutrophils Absolute Auto 4100 /uL (1500-7000); Neutrophils Percent Auto 67.8 % (50-75); Platelet Count 195 X10^3/uL (150-400); Red Cell Distribution Width 13.3 % (11.6-14.8)
[2023-04-12 11:36] LABS: Alanine Aminotransferase 25 IU/L (<50); Albumin 4.2 g/dL (3.5-5.0); Albumin Globulin Ratio 1.4 (1.0-2.8); Alkaline Phosphatase 50 U/L (38-126); Aspartate Aminotransferase 28 IU/L (17-59); BUN Creatinine Ratio 22.1 (6-22); Bilirubin Total 0.8 mg/dL (0.2-1.3); Blood Urea Nitrogen 17 mg/dL (9-20); Calcium 9.7 mg/dL (8.4-10.2); Carbon Dioxide 28 mmol/L (22-32); Chloride 103 mmol/L (98-107); Cholesterol 196 mg/dL (140-199); Estimated Glomerular Filt Rate > 60 mL/min (>60); Globulin 2.9 g/dL (1.7-4.1); Glucose 97 mg/dL (80-110); HDL Cholesterol 47 mg/dL (40-60); HEMOLYSIS < 15 (0-50); LDL Cholesterol Calculated 125 mg/dL (<100); Potassium 4.6 mmol/L (3.4-5.1); Sodium 139 mmol/L (137-145); Total Protein 7.1 g/dL (6.3-8.2); Triglycerides 122 mg/dL (35-150)
[2023-04-14 00:04] LABS: PSA Ultrasensitive 0.045 ng/mL (0.000-4.000)
== END ==
PROVIDERS: Family Provider Family Medicine; PCP Family Medicine; Referring Provider Family Medicine; Visit Provider Family Medicine
DX: R06.2 Wheezing (principal); E78.5 Hyperlipidemia, unspecified; C61 Malignant neoplasm of prostate; E34.9 Endocrine disorder, unspecified
CPT/HCPCS: 36415; 80053; 80061; 84153; 85025

== ENCOUNTER → 2023-04-30 14:56 | Outpatient (CLI) | payer MEDICARE, OTHER, SELFPAY | PROVIDERS: Family Provider Family Medicine; PCP Family Medicine; Referring Provider Family Medicine; Visit Provider Family Medicine | DX: R06.02 Shortness of breath (principal); R06.2 Wheezing | CPT/HCPCS: 94060; 94726; 94729 ==

== ENCOUNTER → 2023-07-09 17:05 | Outpatient (CLI) | payer MEDICARE, OTHER, SELFPAY ==
--- NOTE | 2023-07-09 | DI.RAD.S_ITS ---
PROCEDURE: XR FOOT RT MIN 3V INDICATIONS: RIGHT FOOT PAIN TECHNIQUE: 3 views of the foot were acquired. COMPARISON: None. FINDINGS: Bones: No fractures or dislocations. No suspicious bony lesions. Soft tissues: No tibiotalar joint effusion. Achilles tendon appears normal. IMPRESSION: No acute bony abnormality. Dictated by: Matthew Allen M.D. on 07/10/2023 at 11:42 Approved by: Matthew Allen M.D. on 07/10/2023 at 11:43
== END ==
PROVIDERS: Family Provider Family Medicine; PCP Family Medicine; Referring Provider Podiatrist; Visit Provider Podiatrist
DX: M79.671 Pain in right foot (principal)
CPT/HCPCS: 73630

== ENCOUNTER → 2023-09-08 13:47 | Outpatient (CLI) | payer MEDICARE, OTHER, SELFPAY ==
--- NOTE | 2023-09-08 13:51 | DI.MRI.S_ITS ---
PROCEDURE: MR FOOT RT WO/W CON INDICATIONS: MASS RIGHT PLANTAR HEEL TECHNIQUE: Multiphasic, multisequence large field of view MRI of the foot and ankle was performed, before and after intravenous contrast administration. COMPARISON: [facility], CR, XR FOOT RT MIN 3V, 07/09/2023, 17:15. FINDINGS: Image quality: Large field of view was utilized to include the clinical area of concern on this exam that was ordered as an MRI of the forefoot, which compromises evaluation of smaller structures. Diagnostic information is obtained. Bones and joints: Skin marker is seen at the hindfoot adjacent to the plantar aspect of the posterior calcaneus. No acute trabecular bone injury or fracture. No hindfoot coalitions. No osteochondral injuries of the talar dome. Mild degenerative changes are seen at the 1st metatarsophalangeal joint and the 2nd metatarsophalangeal joint and throughout the interphalangeal joints of the toes. No enhancing soft tissue mass. Medial structures: The deltoid ligament and the spring ligament complex are intact. Mild distal posterior tibialis tenosynovitis. The flexor digitorum longus and flexor hallucis longus tendons are intact. The posterior tibial neurovascular bundle appears normal within the tarsal tunnel, without extrinsic mass effect. Lateral structures: The anterior talofibular, calcaneofibular, and posterior talofibular ligaments are intact. The anterior and posterior tibiofibular ligaments are intact. The peroneus longus and brevis tendons demonstrate normal location and morphology. The sinus tarsi demonstrates normal fatty signal. Anterior structures: The tibialis anterior, extensor hallucis longus, and extensor digitorum longus tendons appear intact. The dorsal talonavicular ligament appears intact. Posterior and plantar structures: Mild Achilles tendinosis. There is mild thickening of the proximal plantar fascia with focal fluid at the origin of the central band that is suspicious for partial tearing. There is mild adjacent soft tissue and osseous edema. No acute osseous fracture. Finding is adjacent to the skin marker indicating the clinical area of concern. No abductor digiti minimi muscle atrophy to suggest Ross neuropathy. IMPRESSION: 1. Partial tearing of the central band of the plantar fascia at its origin with surrounding soft tissue and osseous edema, superimposed on chronic fasciitis. No acute osseous fracture. No enhancing soft tissue mass. 2. Mild Achilles tendinosis. 3. Mild distal posterior tibialis tenosynovitis. 4. Mild degenerative changes in the forefoot. Approved by: Roverto Fernandez M.D. on 09/10/2023 at 12:46
== END ==
LOC: MRI 13:49
PROVIDERS: Family Provider Family Medicine; PCP Family Medicine; Referring Provider Podiatrist; Visit Provider Podiatrist
DX: S96.811A Strain of other specified muscles and tendons at ankle and foot level, right foot, initial encounter (principal); M72.9 Fibroblastic disorder, unspecified; M65.871 Other synovitis and tenosynovitis, right ankle and foot
CPT/HCPCS: 73720; A9579

== ENCOUNTER → 2023-09-28 12:45 | Outpatient (CLI) | payer MEDICARE, OTHER, SELFPAY ==
[2023-09-28 15:50] LABS: Prostate Specific Antigen < 0.064 ng/mL (0.10-4.00)
== END ==
PROVIDERS: Family Provider Family Medicine; PCP Family Medicine; Referring Provider Specialist; Visit Provider Specialist
DX: C61 Malignant neoplasm of prostate (principal)
CPT/HCPCS: 36415; 84153

== ENCOUNTER 2023-10-04 10:30 | Outpatient (RCR) | payer MEDICARE, OTHER, SELFPAY ==
--- NOTE | 2023-08-22 16:54 | PT.OPPOC ---
Physical, Occupational & Speech Therapy At [facility] Current Diagnoses Bladder-neck obstruction (08/22/23) Stress incontinence (female) (male) (08/22/23) Pelvic muscle wasting (08/22/23) Visit Care Team Role Provider Type Ino Umanzor MD Family Provider Physician Primary Care Provider Specialty: Family Practice Address: [address] [place] [address], [id number] Email: [email or web address] Oxana Driscoll MD Attending Provider Physician Referring Provider Specialty: Urology Address: [address] [place] [address], [id number] Email: Plan Of Care PT-OP-T Assessment and Plan Start: 08/22/23 09:48 Freq: Status: Active Protocol: Document 08/22/23 09:45 [facility] (Rec: 08/23/23 16:40 [facility] [id number]) Physical Therapy Assessment Rehab Potential Rehabilitation Potential Excellent Evaluation Complexity Number of Personal Factors/Comorbidities 0 Number of Body Systems Impaired 1-2 Clinical Presentation at Evaluation Stable Impairments Impairments ROM,Soft Tissue Mobility, Strength,Tone Other Impairments urinary stress incontinence Goals 4 Impairment tightness of the iliopsoas with + moiz test B and adductors on the R Short Term Goal (STG) Fito is given stretches to address hip tightness to improve stride length and help decrease strain on the pelvis STG Duration 6 weeks 3 Impairment decreased lateral hip abduction and ER strength Short Term Goal (STG) Fito is educated on a training program for lateral hip stability to help stabilize the pelvis for running STG Duration 6 weeks 2 Impairment decreased pelvic floor endurance Short Term Goal (STG) Fito is able to sustain a pelvic floor contraction in supine x 10 seconds STG Duration 5 weeks [facility] Goal (LTG) Fito is able to sustain a pelvic floor contraction in standing x 10 seconds LTG Duration 12 weeks 1 Impairment urinary stress incontinence with running [facility]ci Goal (LTG) Fito reports a overall reduction of urinary stress incontinence with his long runs and is no longer having to wear the mens guards LTG Duration 12 weeks Assessment Summary Assessment Fito is a 68 year old male referred for pelvic floor strengthening with chief complaints of stress incontinence with running. He has a history of prostatectomy in 2000 followed by radiation in 2007. Fito notes he started noticing his stress incontinence following the radiation. Fito is a frequent runner and he likes to run approx 6 miles. He notes at about 4 miles he will start to notice leakage. He will wear a mens guard with running. Fito would like pelvic floor exercises to help decrease his leakage. With exam today Fito presents with tightness of the right sided adductors and iliopsoas R<L. He is able to engage his pelvic floor but has difficulty sustaining a contraction from longer than 5 seconds. He presents with weakness in his lateral hip rotators and hip abductors. Fito is a good candidate for pelvic floor endurance training, a flexibility program especially for the hip flexors and adductors as well as lateral hip strengthening to help with stability. Physical Therapy Plan Frequency and Duration Frequency of Treatment 1x/Week Duration of treatment (weeks) 8 Plan of Care Start Date 08/22/23 Plan of Care End Date 10/17/23 Therapeutic Interventions Therapeutic Interventions Home Exercise Program,Manual Therapy,Patient/Caregiver Education,Self-Care/Home Management,Therapeutic Exercises Modalities Biofeedback Next Visit Focus/Plan Next Note Type Treatment Note Next Visit Plan review stretches for the hip muscles, work on lateral hip strengthening and pelvic floor endurance training Plan of Care Dates Plan of Care Start Date 08/22/23 Plan of Care End Date 10/17/23 Electronically Signed by: Elizabeth Lee, PT 08/23/23 6065 If you are in agreement with this Plan of Care, please return a signed and dated copy. I have reviewed this Plan of Care and certify that the skilled therapy services above are required to meet the patient?s needs. Physician Signature Date Printed Name and Credentials Clinical Instructor Signature Printed Name and Credentials
--- NOTE | 2023-08-22 16:54 | PT.OIE ---
Current Diagnoses Bladder-neck obstruction (08/22/23) Stress incontinence (female) (male) (08/22/23) Pelvic muscle wasting (08/22/23) Past Medical History (Last Updated 04/03/23 @ 11:13 by Oxana Driscoll MD) Bladder neck contracture History of malignant neoplasm of prostate Hyperlipidemia Microscopic hematuria Prostate CA Radiation cystitis MACKENZIE (stress urinary incontinence), male Testosterone deficiency Wheezing Visit Care Team Role Provider Type Ino Umanzor MD Family Provider Physician Primary Care Provider Specialty: Family Practice Address: [address] [place] [address], [id number] Email: [email or web address] Oxana Driscoll MD Attending Provider Physician Referring Provider Specialty: Urology Address: [address] [place] [address], [id number] Email: Physical Therapy Initial Evaluation PT-OP-A Visit Information Start: 08/22/23 09:48 Freq: Status: Active Protocol: Document 08/22/23 09:51 [facility] (Rec: 08/22/23 10:12 [facility] [id number]) Out-Patient Physical Therapy Visit Information Visit Information Visit Type Initial Evaluation Visit Start Time 09:50 Visit Stop Time 10:30 Visit Number 1 Evaluation Information Evaluation Date 08/22/23 PT-OP-B Current Condition Start: 08/22/23 09:48 Freq: Status: Active Protocol: Document 08/22/23 09:45 [facility] (Rec: 08/22/23 10:12 [facility] [id number]) Current Condition History of Current Condition Onset Date 2007 Current Complaints urinary stress incontinence with running History of Current Condition pt reports urinary leakage with running, he likes to run 4-6 miles 3-4 times per week 2000 prostatectomy and 2007 radiation. After the radiation he did start to notice the leakage. IF he has a full bladder and has to go bad and if he bends over to ty his shoes he dejon notice leakage, occasional urgency. The bladder neck is elongated and at times he retains urine. Drinks water most of the time. hx of lumbar pain and nerve ablation surgery 3 years ago which helped but had no affect on urine leakage. He usually wears a mens guard. he does do a standing quad stretch, bends to touch toes, calf stretch He feels weaker in his hips now and also feels really tight in his calfs and at time he will trip when running in the trails PT-OP-C Subjective Start: 08/22/23 09:48 Freq: Status: Active Protocol: Document 08/22/23 09:45 [facility] (Rec: 08/23/23 16:40 [facility] [id number]) OP-PT Subjective Patient Comments Patient Comments pt reports primary complaints is urinary leakage with running. Leakage occurs after he has run approx 4 miles and he likes to run 6. PT-OP-I Pelvic Floor Start: 08/22/23 09:48 Freq: Status: Active Protocol: Document 08/22/23 09:45 [facility] (Rec: 08/23/23 16:40 [facility] [id number]) Pelvic Floor Assessment Urine Pelvic Floor Surgery rad prostatectomy 2000 Other Urinary Symptoms urinary stress incontinence with running Leakage Size Medium Leakage Cause Exercise Contraction Ability Voluntary Contraction Weak Muscle Endurance (Seconds) 5 Comments Pelvic Floor Comments Fito is able to engage the pelvic floor but lacks endurance for a sustained contraction greater than 5 seconds PT-OP-K Range of Motion Start: 08/22/23 09:48 Freq: Status: Active Protocol: Document 08/22/23 09:45 [facility] (Rec: 08/23/23 16:40 [facility] [id number]) Hip Goniometric Range of Motion Hip Right Testing Position Supine Straight Leg Raise 50 Extension 0 Abduction 10 Hip ROM Limitations Hip ROM Limitations Soft Tissue Tightness Comments decreased hip extension B R>L due to muscle tightnes, + moiz test B decreased hip abduction Right side with adductor tightness PT-OP-M Strength Start: 08/22/23 09:48 Freq: Status: Active Protocol: Document 08/22/23 09:45 [facility] (Rec: 08/23/23 16:54 [facility] [id number]) Hip Strength Hip Manual Muscle Testing Right Abduction 4 Good External Rotation 4 Good Left Abduction 4 Good External Rotation 4 Good PT-OP-Q Treatments Start: 08/22/23 09:48 Freq: Status: Active Protocol: Document 08/22/23 09:45 [facility] (Rec: 08/22/23 12:32 [facility] [id number]) Therapeutic Exercises Supine Exercises pelvic floor long holds Side bilateral Reps/Minutes 10 reps with 10 second hold time and 10 sec relax Sidelying Exercises clam shells Reps/Minutes 3 x 10 reps Standing Exercises dynamic adductor stretching Side bilateral Reps/Minutes 10 reps alternating sides PT-OP-T Assessment and Plan Start: 08/22/23 09:48 Freq: Status: Active Protocol: Document 08/22/23 09:45 [facility] (Rec: 08/23/23 16:40 [facility] [id number]) Physical Therapy Assessment Rehab Potential Rehabilitation Potential Excellent Evaluation Complexity Number of Personal Factors/Comorbidities 0 Number of Body Systems Impaired 1-2 Clinical Presentation at Evaluation Stable Impairments Impairments ROM,Soft Tissue Mobility, Strength,Tone Other Impairments urinary stress incontinence Goals 4 Impairment tightness of the iliopsoas with + moiz test B and adductors on the R Short Term Goal (STG) Fito is given stretches to address hip tightness to improve stride length and help decrease strain on the pelvis STG Duration 6 weeks 3 Impairment decreased lateral hip abduction and ER strength Short Term Goal (STG) Fito is educated on a training program for lateral hip stability to help stabilize the pelvis for running STG Duration 6 weeks 2 Impairment decreased pelvic floor endurance Short Term Goal (STG) Fito is able to sustain a pelvic floor contraction in supine x 10 seconds STG Duration 5 weeks Mangle Feeder Goal (LTG) Fito is able to sustain a pelvic floor contraction in standing x 10 seconds LTG Duration 12 weeks 1 Impairment urinary stress incontinence with running Mangle Feeder Goal (LTG) Fito reports a overall reduction of urinary stress incontinence with his long runs and is no longer having to wear the mens guards LTG Duration 12 weeks Assessment Summary Assessment Fito is a 68 year old male referred for pelvic floor strengthening with chief complaints of stress incontinence with running. He has a history of prostatectomy in 2000 followed by radiation in 2007. Fito notes he started noticing his stress incontinence following the radiation. Fito is a frequent runner and he likes to run approx 6 miles. He notes at about 4 miles he will start to notice leakage. He will wear a mens guard with running. Fito would like pelvic floor exercises to help decrease his leakage. With exam today Fito presents with tightness of the right sided adductors and iliopsoas R<L. He is able to engage his pelvic floor but has difficulty sustaining a contraction from longer than 5 seconds. He presents with weakness in his lateral hip rotators and hip abductors. Fito is a good candidate for pelvic floor endurance training, a flexibility program especially for the hip flexors and adducors as well as lateral hip strengthening to help with stability. Physical Therapy Plan Frequency and Duration Frequency of Treatment 1x/Week Duration of treatment (weeks) 8 Plan of Care Start Date 08/22/23 Plan of Care End Date 10/17/23 Therapeutic Interventions Therapeutic Interventions Home Exercise Program,Manual Therapy,Patient/Caregiver Education,Self-Care/Home Management,Therapeutic Exercises Modalities Biofeedback Next Visit Focus/Plan Next Note Type Treatment Note Next Visit Plan review stretches for the hip muscles, work on lateral hip strengthening and pelvic floor endurance training
--- NOTE | 2023-09-12 13:02 | PT.OTN ---
Current Diagnoses Bladder-neck obstruction (09/12/23) Stress incontinence (female) (male) (09/12/23) Physical Therapy Treatment Note PT-OP-A Visit Information Start: 08/22/23 09:48 Freq: Status: Active Protocol: Document 09/12/23 09:03 [facility] (Rec: 09/12/23 10:36 [facility] [id number]) Out-Patient Physical Therapy Visit Information Visit Information Visit Type Treatment Note Visit Start Time 09:03 Visit Stop Time 09:45 Visit Number 2 PT-OP-B Current Condition Start: 08/22/23 09:48 Freq: Status: Active Protocol: Document 08/22/23 09:45 [facility] (Rec: 08/22/23 10:12 [facility] [id number]) Current Condition History of Current Condition Onset Date 2007 Current Complaints urinary stress incontinence with running History of Current Condition pt reports urinary leakage with running, he likes to run 4-6 miles 3-4 times per week 2000 prostatectomy and 2007 radiation. After the radiation he did start to notice the leakage. IF he has a full bladder and has to go bad and if he bends over to ty his shoes he dejon notice leakage, occasional urgency. The bladder neck is elongated and at times he retains urine. Drinks water most of the time. hx of lumbar pain and nerve ablation surgery 3 years ago which helped but had no affect on urine leakage. He usually wears a mens guard. he does do a standing quad stretch, bends to touch toes, calf stretch He feels weaker in his hips now and also feels really tight in his calfs and at time he will trip when running in the trails PT-OP-C Subjective Start: 08/22/23 09:48 Freq: Status: Active Protocol: Document 09/12/23 09:03 [facility] (Rec: 09/12/23 10:36 [facility] [id number]) OP-PT Subjective Patient Comments Patient Comments pt notes he has been working on his pelvic floor program, has been to the gym doing the weight machine. He hasn't been able to run due to plantar fascitis so he is not sure how he has done with progress with not leaking with running Patient Reported Progress Same PT-OP-I Pelvic Floor Start: 08/22/23 09:48 Freq: Status: Active Protocol: Document 08/22/23 09:45 [facility] (Rec: 08/23/23 16:40 [facility] [id number]) Pelvic Floor Assessment Urine Pelvic Floor Surgery rad prostatectomy 2001 Other Urinary Symptoms urinary stress incontinence with running Leakage Size Medium Leakage Cause Exercise Contraction Ability Voluntary Contraction Weak Muscle Endurance (Seconds) 5 Comments Pelvic Floor Comments Fito is able to engage the pelvic floor but lacks endurance for a sustained contraction greater than 5 seconds PT-OP-K Range of Motion Start: 08/22/23 09:48 Freq: Status: Active Protocol: Document 08/22/23 09:45 [facility] (Rec: 08/23/23 16:40 [facility] [id number]) Hip Goniometric Range of Motion Hip Right Testing Position Supine Straight Leg Raise 50 Extension 0 Abduction 10 Hip ROM Limitations Hip ROM Limitations Soft Tissue Tightness Comments decreased hip extension B R>L due to muscle tightnes, + moiz test B decreased hip abduction Right side with adductor tightness PT-OP-M Strength Start: 08/22/23 09:48 Freq: Status: Active Protocol: Document 08/22/23 09:45 [facility] (Rec: 08/23/23 16:54 [facility] [id number]) Hip Strength Hip Manual Muscle Testing Right Abduction 4 Good External Rotation 4 Good Left Abduction 4 Good External Rotation 4 Good PT-OP-Q Treatments Start: 08/22/23 09:48 Freq: Status: Active Protocol: Document 09/12/23 09:03 [facility] (Rec: 09/12/23 10:36 [facility] [id number]) Therapeutic Exercises Supine Exercises pelvic floor long holds Side bilateral Reps/Minutes 10 reps with 10 second hold time and 10 sec relax Sidelying Exercises clam shells Reps/Minutes 3 x 10 reps Standing Exercises dynamic adductor stretching Side bilateral Reps/Minutes 10 reps alternating sides Other Exercises squats with theraband around thighs Reps/Minutes x 20 reps Comments green theraband side steps with squat Reps/Minutes green band x 30 steps single leg stand with taps Reps/Minutes x 10 each 1/2 kneeling hip flexor stretch Equipment Used th sides and feels more stretch on the right side Reps/Minutes mariela quadruped rock back Reps/Minutes adductor stretch in hands and knees positions PT-OP-T Assessment and Plan Start: 08/22/23 09:48 Freq: Status: Active Protocol: Document 09/12/23 13:00 [facility] (Rec: 09/12/23 13:02 [facility] [id number]) Physical Therapy Assessment Assessment Summary Assessment worked today on dynamic flexibility of the adductors and the hip flexors, added in single leg stance activities for running and squats and sidesteps with theraband. EMG biofeedback is not currently working so dejon add this in next visit for pelvic floor endurance assessment Physical Therapy Plan Frequency and Duration Frequency of Treatment 1x/Week Duration of treatment (weeks) 8 Plan of Care Start Date 08/22/23 Plan of Care End Date 10/17/23 Therapeutic Interventions Therapeutic Interventions Home Exercise Program,Manual Therapy,Patient/Caregiver Education,Self-Care/Home Management,Therapeutic Exercises Modalities Biofeedback Next Visit Focus/Plan Next Note Type Treatment Note Next Visit Plan review stretches for the hip muscles, work on lateral hip strengthening and pelvic floor endurance training. Begin EMG biofeedback
--- NOTE | 2023-09-20 12:27 | PT.OTN ---
Current Diagnoses Bladder-neck obstruction (09/20/23) Stress incontinence (female) (male) (09/20/23) Physical Therapy Treatment Note PT-OP-A Visit Information Start: 08/22/23 09:48 Freq: Status: Active Protocol: Document 09/20/23 10:38 [facility] (Rec: 09/20/23 11:19 [facility] [id number]) Out-Patient Physical Therapy Visit Information Visit Information Visit Type Treatment Note Visit Start Time 10:35 Visit Stop Time 11:15 Visit Number 3 PT-OP-B Current Condition Start: 08/22/23 09:48 Freq: Status: Active Protocol: Document 08/22/23 09:45 [facility] (Rec: 08/22/23 10:12 [facility] [id number]) Current Condition History of Current Condition Onset Date 2007 Current Complaints urinary stress incontinence with running History of Current Condition pt reports urinary leakage with running, he likes to run 4-6 miles 3-4 times per week 2000 prostatectomy and 2007 radiation. After the radiation he did start to notice the leakage. IF he has a full bladder and has to go bad and if he bends over to ty his shoes he dejon notice leakage, occasional urgency. The bladder neck is elongated and at times he retains urine. Drinks water most of the time. hx of lumbar pain and nerve ablation surgery 3 years ago which helped but had no affect on urine leakage. He usually wears a mens guard. he does do a standing quad stretch, bends to touch toes, calf stretch He feels weaker in his hips now and also feels really tight in his calfs and at time he will trip when running in the trails PT-OP-C Subjective Start: 08/22/23 09:48 Freq: Status: Active Protocol: Document 09/20/23 10:38 [facility] (Rec: 09/20/23 11:19 [facility] [id number]) OP-PT Subjective Patient Comments Patient Comments pt has a referral for his plantar fascia and has been doing the spin bike at the gym . He did try running on the treadmill but his plantar fascia hurt. He hasn't been experiecing any leakage due to not running longer distance PT-OP-I Pelvic Floor Start: 08/22/23 09:48 Freq: Status: Active Protocol: Document 08/22/23 09:45 [facility] (Rec: 08/23/23 16:40 [facility] [id number]) Pelvic Floor Assessment Urine Pelvic Floor Surgery rad prostatectomy 2000 Other Urinary Symptoms urinary stress incontinence with running Leakage Size Medium Leakage Cause Exercise Contraction Ability Voluntary Contraction Weak Muscle Endurance (Seconds) 5 Comments Pelvic Floor Comments Fito is able to engage the pelvic floor but lacks endurance for a sustained contraction greater than 5 seconds PT-OP-K Range of Motion Start: 08/22/23 09:48 Freq: Status: Active Protocol: Document 08/22/23 09:45 [facility] (Rec: 08/23/23 16:40 [facility] [id number]) Hip Goniometric Range of Motion Hip Right Testing Position Supine Straight Leg Raise 50 Extension 0 Abduction 10 Hip ROM Limitations Hip ROM Limitations Soft Tissue Tightness Comments decreased hip extension B R>L due to muscle tightnes, + moiz test B decreased hip abduction Right side with adductor tightness PT-OP-M Strength Start: 08/22/23 09:48 Freq: Status: Active Protocol: Document 08/22/23 09:45 [facility] (Rec: 08/23/23 16:54 [facility] [id number]) Hip Strength Hip Manual Muscle Testing Right Abduction 4 Good External Rotation 4 Good Left Abduction 4 Good External Rotation 4 Good PT-OP-Q Treatments Start: 08/22/23 09:48 Freq: Status: Active Protocol: Document 09/20/23 12:22 [facility] (Rec: 09/20/23 12:24 [facility] [id number]) Therapeutic Exercises Supine Exercises pelvic floor long holds Supine Exercise Name with EMG biofeedback Reps/Minutes 10 sec hold x 10 reps Neuro Re-Education Treatment Other Activities NMES for the pelvic floor with rectal sensor Comments rectal sensor was used for NMES of the pelvic floor, went to level 4 only as Fito felt the stim at this level worked on pelvic floor neuro awareness and contraction Self-Care/Home Management Treatment Education Patient Education Home Exercise Program Other Education review of HEP PT-OP-T Assessment and Plan Start: 08/22/23 09:48 Freq: Status: Active Protocol: Document 09/20/23 10:38 [facility] (Rec: 09/20/23 11:19 [facility] [id number]) Physical Therapy Assessment Assessment Summary Assessment Fito felt the NMES at a low level of 4 intensity. WIth EMG biofeedback he was able to contract to 36 uv and average contraction wasd 20 uv. HE did fatigue with repetitions. I encouraged him to work on endurance contractions for home. he has not been experiencing any leakage as he hasn't been running due to his plantar fascitis Physical Therapy Plan Frequency and Duration Frequency of Treatment 1x/Week Duration of treatment (weeks) 8 Plan of Care Start Date 08/22/23 Plan of Care End Date 10/17/23 Therapeutic Interventions Therapeutic Interventions Home Exercise Program,Manual Therapy,Patient/Caregiver Education,Self-Care/Home Management,Therapeutic Exercises Modalities Biofeedback Next Visit Focus/Plan Next Note Type Treatment Note Next Visit Plan continue with NMES and emg biofeedback
--- NOTE | 2023-09-27 15:06 | PT.OTN ---
Current Diagnoses Bladder-neck obstruction (09/27/23) Stress incontinence (female) (male) (09/27/23) Physical Therapy Treatment Note PT-OP-A Visit Information Start: 08/22/23 09:48 Freq: Status: Active Protocol: Document 09/27/23 10:36 [facility] (Rec: 09/27/23 11:20 [facility] [id number]) Out-Patient Physical Therapy Visit Information Visit Information Visit Type Treatment Note Visit Start Time 10:35 Visit Stop Time 11:15 Visit Number 40 PT-OP-B Current Condition Start: 08/22/23 09:48 Freq: Status: Active Protocol: Document 08/22/23 09:45 [facility] (Rec: 08/22/23 10:12 [facility] [id number]) Current Condition History of Current Condition Onset Date 2007 Current Complaints urinary stress incontinence with running History of Current Condition pt reports urinary leakage with running, he likes to run 4-6 miles 3-4 times per week 2000 prostatectomy and 2007 radiation. After the radiation he did start to notice the leakage. IF he has a full bladder and has to go bad and if he bends over to ty his shoes he dejon notice leakage, occasional urgency. The bladder neck is elongated and at times he retains urine. Drinks water most of the time. hx of lumbar pain and nerve ablation surgery 3 years ago which helped but had no affect on urine leakage. He usually wears a mens guard. he does do a standing quad stretch, bends to touch toes, calf stretch He feels weaker in his hips now and also feels really tight in his calfs and at time he will trip when running in the trails PT-OP-C Subjective Start: 08/22/23 09:48 Freq: Status: Active Protocol: Document 09/27/23 10:36 [facility] (Rec: 09/27/23 11:20 [facility] [id number]) OP-PT Subjective Patient Comments Patient Comments Fito did a walk jog x 4 miles last week, his heel is limiting him as he is dealing with the plantar fascitis. He didn't have a issue with leakage but he doesn't feel like he didn't push it enough for leakage. He does feel that he is holding pelvic floor squeezes longer now Patient Reported Progress Improving PT-OP-I Pelvic Floor Start: 08/22/23 09:48 Freq: Status: Active Protocol: Document 08/22/23 09:45 [facility] (Rec: 08/23/23 16:40 [facility] [id number]) Pelvic Floor Assessment Urine Pelvic Floor Surgery rad prostatectomy 2001 Other Urinary Symptoms urinary stress incontinence with running Leakage Size Medium Leakage Cause Exercise Contraction Ability Voluntary Contraction Weak Muscle Endurance (Seconds) 5 Comments Pelvic Floor Comments Fito is able to engage the pelvic floor but lacks endurance for a sustained contraction greater than 5 seconds PT-OP-K Range of Motion Start: 08/22/23 09:48 Freq: Status: Active Protocol: Document 08/22/23 09:45 [facility] (Rec: 08/23/23 16:40 [facility] [id number]) Hip Goniometric Range of Motion Hip Right Testing Position Supine Straight Leg Raise 50 Extension 0 Abduction 10 Hip ROM Limitations Hip ROM Limitations Soft Tissue Tightness Comments decreased hip extension B R>L due to muscle tightnes, + moiz test B decreased hip abduction Right side with adductor tightness PT-OP-M Strength Start: 08/22/23 09:48 Freq: Status: Active Protocol: Document 08/22/23 09:45 [facility] (Rec: 08/23/23 16:54 [facility] [id number]) Hip Strength Hip Manual Muscle Testing Right Abduction 4 Good External Rotation 4 Good Left Abduction 4 Good External Rotation 4 Good PT-OP-Q Treatments Start: 08/22/23 09:48 Freq: Status: Active Protocol: Document 09/27/23 10:36 [facility] (Rec: 09/27/23 11:20 [facility] [id number]) Therapeutic Exercises Supine Exercises pelvic floor long holds Reps/Minutes 10 reps holding 10 sec Sidelying Exercises clam shells Reps/Minutes 3 x 10 reps Other Exercises supine hamstring flossing Reps/Minutes x 10 reps standing pelvic floor contractions Reps/Minutes x 10 reps single leg stand with taps Reps/Minutes x 10 each Self-Care/Home Management Treatment Education Patient Education Home Exercise Program Other Education review of Home program and pt was progressed to standing pelvic floor exercises PT-OP-T Assessment and Plan Start: 08/22/23 09:48 Freq: Status: Active Protocol: Document 09/27/23 10:36 [facility] (Rec: 09/27/23 11:20 [facility] [id number]) Physical Therapy Assessment Assessment Summary Assessment Fito would like to try EMG biofeedback and I am awaiting the new software. He dejon continue x 1 additional visit if software is available by next week. He is doing well with HEP and is limited in his running at this time due to plantar fascitis pain. He starts PT for plantar fascitis in October Physical Therapy Plan Frequency and Duration Frequency of Treatment 1x/Week Duration of treatment (weeks) 8 Plan of Care Start Date 08/22/23 Plan of Care End Date 10/17/23 Therapeutic Interventions Therapeutic Interventions Home Exercise Program,Manual Therapy,Patient/Caregiver Education,Self-Care/Home Management,Therapeutic Exercises Modalities Biofeedback Next Visit Focus/Plan Next Note Type Treatment Note Next Visit Plan EMG biofeedback next visit for endurance assessment
--- NOTE | 2023-10-04 16:58 | PT.OTN ---
Current Diagnoses Bladder-neck obstruction (10/04/23) Stress incontinence (female) (male) (10/04/23) Physical Therapy Treatment Note PT-OP-A Visit Information Start: 08/22/23 09:48 Freq: Status: Active Protocol: Document 10/04/23 10:42 [facility] (Rec: 10/04/23 11:13 [facility] [id number]) Out-Patient Physical Therapy Visit Information Visit Information Visit Type Treatment Note Visit Start Time 10:35 Visit Stop Time 11:15 Visit Number 5 PT-OP-B Current Condition Start: 08/22/23 09:48 Freq: Status: Active Protocol: Document 08/22/23 09:45 [facility] (Rec: 08/22/23 10:12 [facility] [id number]) Current Condition History of Current Condition Onset Date 2007 Current Complaints urinary stress incontinence with running History of Current Condition pt reports urinary leakage with running, he likes to run 4-6 miles 3-4 times per week 2000 prostatectomy and 2007 radiation. After the radiation he did start to notice the leakage. IF he has a full bladder and has to go bad and if he bends over to ty his shoes he dejon notice leakage, occasional urgency. The bladder neck is elongated and at times he retains urine. Drinks water most of the time. hx of lumbar pain and nerve ablation surgery 3 years ago which helped but had no affect on urine leakage. He usually wears a mens guard. he does do a standing quad stretch, bends to touch toes, calf stretch He feels weaker in his hips now and also feels really tight in his calfs and at time he will trip when running in the trails PT-OP-C Subjective Start: 08/22/23 09:48 Freq: Status: Active Protocol: Document 10/04/23 10:42 [facility] (Rec: 10/04/23 11:13 [facility] [id number]) OP-PT Subjective Patient Comments Patient Comments Fito reports he has been working on all his exercises and has been doing stretches for his plantar fascia. He starts PT in 2 weeks to address the plantar fascia. He has not tested out his running yet due to heel pain but feels he is stronger with his endurance contractions of his pelvic floor Patient Reported Progress Improving PT-OP-I Pelvic Floor Start: 08/22/23 09:48 Freq: Status: Active Protocol: Document 08/22/23 09:45 [facility] (Rec: 08/23/23 16:40 [facility] [id number]) Pelvic Floor Assessment Urine Pelvic Floor Surgery rad prostatectomy 2000 Other Urinary Symptoms urinary stress incontinence with running Leakage Size Medium Leakage Cause Exercise Contraction Ability Voluntary Contraction Weak Muscle Endurance (Seconds) 5 Comments Pelvic Floor Comments Fito is able to engage the pelvic floor but lacks endurance for a sustained contraction greater than 5 seconds PT-OP-K Range of Motion Start: 08/22/23 09:48 Freq: Status: Active Protocol: Document 08/22/23 09:45 [facility] (Rec: 08/23/23 16:40 [facility] [id number]) Hip Goniometric Range of Motion Hip Right Testing Position Supine Straight Leg Raise 50 Extension 0 Abduction 10 Hip ROM Limitations Hip ROM Limitations Soft Tissue Tightness Comments decreased hip extension B R>L due to muscle tightnes, + moiz test B decreased hip abduction Right side with adductor tightness PT-OP-M Strength Start: 08/22/23 09:48 Freq: Status: Active Protocol: Document 08/22/23 09:45 [facility] (Rec: 08/23/23 16:54 [facility] [id number]) Hip Strength Hip Manual Muscle Testing Right Abduction 4 Good External Rotation 4 Good Left Abduction 4 Good External Rotation 4 Good PT-OP-Q Treatments Start: 08/22/23 09:48 Freq: Status: Active Protocol: Document 10/04/23 10:42 [facility] (Rec: 10/04/23 11:13 [facility] [id number]) Therapeutic Exercises Supine Exercises templates on EMG biofeedback for eccentric control Reps/Minutes 5 min pelvic floor long holds Supine Exercise Name 23.8 75.8 Reps/Minutes 10 reps holding 10 sec Comments done with EMG biofeedback Other Exercises supine hamstring flossing Other Exercise Name REVIEW OF HEP Reps/Minutes x 10 reps squats with theraband around thighs Other Exercise Name REVIEW OF HEP side steps with squat Other Exercise Name REVIEW OF HEP single leg stand with taps Reps/Minutes x 10 each 1/2 kneeling hip flexor stretch Equipment Used th sides and feels more stretch on the right side Reps/Minutes mariela quadruped rock back Reps/Minutes adductor stretch in hands and knees positions Self-Care/Home Management Treatment Education Patient Education Home Exercise Program Other Education review of Home program and pt was progressed to eccentric pelvic floor exercises PT-OP-T Assessment and Plan Start: 08/22/23 09:48 Freq: Status: Active Protocol: Document 10/04/23 16:54 [facility] (Rec: 10/04/23 16:57 [facility] [id number]) Physical Therapy Assessment Goals 4 Impairment tightness of the iliopsoas with + moiz test B and adductors on the R Short Term Goal (STG) Fito is given stretches to address hip tightness to improve stride length and help decrease strain on the pelvis goal met STG Duration 6 weeks 3 Impairment decreased lateral hip abduction and ER strength Short Term Goal (STG) Fito is educated on a training program for lateral hip stability to help stabilize the pelvis for running goal met STG Duration 6 weeks 2 Impairment decreased pelvic floor endurance Short Term Goal (STG) Fito is able to sustain a pelvic floor contraction in supine x 10 seconds good progress STG Duration 5 weeks Cooler Room Worker Goal (LTG) Fito is able to sustain a pelvic floor contraction in standing x 10 seconds good progress LTG Duration 12 weeks 1 Impairment urinary stress incontinence with running Cooler Room Worker Goal (LTG) Fito reports a overall reduction of urinary stress incontinence with his long runs and is no longer having to wear the mens guards LTG Duration 12 weeks Assessment Summary Assessment Fito has been seen for pelvic floor strengthening as he was expereincing leakage with running. He has been shown stabilization exercise for both his hips and pelvic floor . He has also been dealing with plantar fascitis so hasn' t been able to resume running to test out his pelvic floor strength. OVerall he is feeling endurance is improved as once he is recovered from his plantar fascial pain he will return to running. At this point he will be discharged from PT as he is I with a [facility] Physical Therapy Plan Discharge Physical Therapy Discharge Reasons Goals Met
== END 2023-10-08 11:10 | disposition home or self-care (01) ==
LOC: PHYS 10:30
PROVIDERS: Family Provider Family Medicine; PCP Family Medicine; Referring Provider Specialist; Visit Provider Specialist
DX: N39.3 Stress incontinence (female) (male) (principal); N32.0 Bladder-neck obstruction
CPT/HCPCS: 97110; 97112; 97162; 97535

== ENCOUNTER → 2023-10-12 07:50 | Outpatient (CLI) | payer MEDICARE, OTHER, SELFPAY ==
[2023-10-13 08:00] LABS: PSA Ultrasensitive 0.047 ng/mL (0.000-4.000)
== END ==
PROVIDERS: Family Provider Family Medicine; PCP Family Medicine; Referring Provider Family Medicine; Visit Provider Family Medicine
DX: C61 Malignant neoplasm of prostate (principal); E34.9 Endocrine disorder, unspecified; R06.2 Wheezing
CPT/HCPCS: 36415; 84153; 84402; 84403

== ENCOUNTER 2024-01-03 16:45 | Outpatient (RCR) | payer MEDICARE, OTHER, SELFPAY ==
--- NOTE | 2023-10-17 16:45 | PT.OIE ---
Current Diagnoses Plantar fascial fibromatosis (10/17/23) Past Medical History (Last Updated 10/02/23 @ 16:40 by Oxana Driscoll MD) Bladder neck contracture History of malignant neoplasm of prostate Hyperlipidemia Microscopic hematuria Prostate CA Radiation cystitis MACKENZIE (stress urinary incontinence), male Testosterone deficiency Wheezing Visit Care Team Role Provider Type Ino Umanzor MD Family Provider Physician Primary Care Provider Specialty: Family Practice Address: [address] [place] [address], [address] Email: [email or web address] Delia Solis DPM Attending Provider Non-Staff Referring Provider Specialty: Podiatry Address: [address] [place] [address], [address] Email: Physical Therapy Initial Evaluation PT-OP-A Visit Information Start: 10/17/23 17:35 Freq: Status: Active Protocol: Document 10/17/23 16:00 DCW (Rec: 10/17/23 17:50 DCW [id number]) Out-Patient Physical Therapy Visit Information Visit Information Visit Type Initial Evaluation Visit Start Time 16:00 Visit Stop Time 16:45 Visit Number 1 Number of CONSTRUCTION PROJECT MGR Visits 0 Evaluation Information Evaluation Date 10/17/23 PT-OP-B Current Condition Start: 10/17/23 17:35 Freq: Status: Active Protocol: Document 10/17/23 16:00 DCW (Rec: 10/18/23 12:38 DCW [id number]) Current Condition History of Current Condition Onset Date Five month history Current Complaints R foot pain History of Current Condition Pt is a 68 year old male presenting with a five month history of right plantar surface foot pain. Pt reports pain began in early June of this year, continued worsening until he saw Dr Solis in mid-July. Pt at that time was instructed to stop hiking and running for six weeks. Pain continued after his break from those activities, so pt has largely avoided them since. Eventually underwent an MRI, which showed a tear in his plantar fascia, as well as chronic fasciitis. Other than avoiding his usual exercise activities , his pain does not restrict his activity. When he walks, he experiences burning in his foot. More walking equals more burning. Has tried to return a bit to hiking/running, and while he does not have pain during, it does burn more later. Also green a lot in the morning when first standing up on his feet. Wears an ankle compression sleeve, but does not feel there is much benefit , as there is no real compression on the painful area, which is on the right plantar surface of the calcaneous, slightly medial to midline. Prior Treatments and Tests R foot MRI: IMPRESSION: 1. Partial tearing of the central band of the plantar fascia at its origin with surrounding soft tissue and osseous edema, superimposed on chronic fasciitis. No acute osseous fracture. No enhancing soft tissue mass. 2. Mild Achilles tendinosis. 3. Mild distal posterior tibialis tenosynovitis. 4. Mild degenerative changes in the forefoot. Roverto Fernandez M.D . on 09/10/2023 PT-OP-C Subjective Start: 10/17/23 17:35 Freq: Status: Active Protocol: Document 10/17/23 16:00 DCW (Rec: 10/17/23 17:50 DCW [id number]) OP-PT Subjective Patient Comments Patient Comments It really green right away in the morning. Patient Questionnaires Lower Extremity Functional Scale LEFS Score 64/80 = 80% PT-OP-F Manual Assessment Start: 10/17/23 17:35 Freq: Status: Active Protocol: Document 10/17/23 16:00 DCW (Rec: 10/17/23 17:52 DCW [id number]) Manual Assessments Soft Tissue Assessment Soft Tissue Mobility Assessment Noticeable nodule on heel, right plantar surface medial from midline. Tenderness to palpation 2/4: Pain with wincing along that area. No tenderness elsewhere. PT-OP-K Range of Motion Start: 10/17/23 17:35 Freq: Status: Active Protocol: Document 10/17/23 16:00 DCW (Rec: 10/17/23 17:52 DCW [id number]) Ankle and Foot Goniometric Range of Motion Ankle and Foot Right Active Ankle/Foot ROM WFL Yes Testing Position Sitting Comments ROM WNL PT-OP-M Strength Start: 10/17/23 17:35 Freq: Status: Active Protocol: Document 10/17/23 16:00 DCW (Rec: 10/17/23 17:52 DCW [id number]) Ankle/Foot Strength Ankle and Foot Manual Muscle Testing Right Dorsiflexion (L4) 5 Normal Plantarflexion (S1) 5 Normal Inversion 5 Normal Eversion (S1) 5 Normal Toe Strength Toe Manual Muscle Testing Right 2nd Toe Flexion 5 Normal Extension 5 Normal Right Great Toe Flexion 5 Normal Extension 5 Normal PT-OP-Q Treatments Start: 10/17/23 17:35 Freq: Status: Active Protocol: Document 10/17/23 16:00 DCW (Rec: 10/17/23 17:50 DCW [id number]) Manual Therapy Treatment Taping Plantar Fascia Body Location R Plantar fascia Treatment Focus stabilization of plantar surface Type of Tape Kinesio Tape Comments [place] at heel, with 5-strip along plantar surface and y- strip up calf PT-OP-R Modalities Start: 10/17/23 17:35 Freq: Status: Active Protocol: Document 10/17/23 16:00 DCW (Rec: 10/17/23 17:50 DCW [id number]) Ultrasound Therapy Treatment Right Foot Patient Position Supine Coupling Medium Ultrasound Gel Applicator Size (cm2) 2 Frequency Setting (mHz) 3 Mode Setting Pulsed Duty Cycle 50% Intensity Setting (w/cm2) 0.8 Comments 8 minutes PT-OP-T Assessment and Plan Start: 10/17/23 17:35 Freq: Status: Active Protocol: Document 10/17/23 16:00 DCW (Rec: 10/18/23 12:38 DCW [id number]) Physical Therapy Assessment Rehab Potential Rehabilitation Potential Good Evaluation Complexity Number of Personal Factors/Comorbidities 0 Number of Body Systems Impaired 1-2 Clinical Presentation at Evaluation Stable Impairments Impairments Activity Tolerance,Functional Activities,Functional Mobility ,Pain Goals 2 Impairment Pt unable to run without burning in right plantar surface Half-Way Goal (LTG) Pt to report return to prior level of participation in running exercise with no increased symptoms of right plantar pain LTG Duration 12/18/23 1 Impairment Pt does not have an appropriate home exercise program Short Term Goal (STG) Pt to be independent and compliant with appropriate HEP STG Duration 11/17/23 Assessment Summary Assessment Pt presents with signs and symptoms consistent with referring diagnosis. Pt does exhibit minimal limitations, very specifically pain on plantar surface of right calcaneous, especially with weight-bearing activities or when first getting out of bed in the morning. Pt does presents with seemingly completely normal strength and mobility/ROM of bilateral ankles and feet. Pt at this time should focus on pain control and decreasing inflammation. As pain improves , may benefit from intrinsic foot strengthening activities to help support plantar fascia . Performed trial of K-tape at initial evaluation, assess effectiveness next visit. Physical Therapy Plan Frequency and Duration Frequency of Treatment 2x/Week Plan of Care Start Date 10/17/23 Plan of Care End Date 12/17/23 Therapeutic Interventions Therapeutic Interventions Coordination Training,Gait Training,Home Exercise Program ,Joint Mobilizations,Manual Therapy,Neuromuscular Re- education,Patient/Caregiver Education,Self-Care/Home Management,Soft Tissue Mobilization,Therapeutic Activities,Therapeutic Exercises Modalities Cold Pack/Ice Massage,Electric Stimulation,Hot Packs, Iontophoresis,Ultrasound Other Therapeutic Interventions Iontophoresis with Dexamethasone, 10 mg/mL Next Visit Focus/Plan Next Note Type Treatment Note Next Visit Plan K-tape assessment, US, Dexamethasone/Ionto trial?, intrinsic foot strengthening as tolerated
--- NOTE | 2023-10-17 16:45 | PT.OPPOC ---
Physical, Occupational & Speech Therapy At [facility] Current Diagnoses Plantar fascial fibromatosis (10/17/23) Visit Care Team Role Provider Type Ino Umanzor MD Family Provider Physician Primary Care Provider Specialty: Family Practice Address: [address] [place] [address], [address] Email: [email or web address] Delia Solis DPM Attending Provider Non-Staff Referring Provider Specialty: Podiatry Address: [facility] [place], [address] Email: Plan Of Care PT-OP-T Assessment and Plan Start: 10/17/23 17:35 Freq: Status: Active Protocol: Document 10/17/23 16:00 DCW (Rec: 10/18/23 12:38 DCW [id number]) Physical Therapy Assessment Rehab Potential Rehabilitation Potential Good Evaluation Complexity Number of Personal Factors/Comorbidities 0 Number of Body Systems Impaired 1-2 Clinical Presentation at Evaluation Stable Impairments Impairments Activity Tolerance,Functional Activities,Functional Mobility ,Pain Goals 2 Impairment Pt unable to run without burning in right plantar surface Penitentiary Goal (LTG) Pt to report return to prior level of participation in running exercise with no increased symptoms of right plantar pain LTG Duration 12/18/23 1 Impairment Pt does not have an appropriate home exercise program Short Term Goal (STG) Pt to be independent and compliant with appropriate HEP STG Duration 11/17/23 Assessment Summary Assessment Pt presents with signs and symptoms consistent with referring diagnosis. Pt does exhibit minimal limitations, very specifically pain on plantar surface of right calcaneous, especially with weight-bearing activities or when first getting out of bed in the morning. Pt does presents with seemingly completely normal strength and mobility/ROM of bilateral ankles and feet. Pt at this time should focus on pain control and decreasing inflammation. As pain improves , may benefit from intrinsic foot strengthening activities to help support plantar fascia . Performed trial of K-tape at initial evaluation, assess effectiveness next visit. Physical Therapy Plan Frequency and Duration Frequency of Treatment 2x/Week Plan of Care Start Date 10/17/23 Plan of Care End Date 12/17/23 Therapeutic Interventions Therapeutic Interventions Coordination Training,Gait Training,Home Exercise Program ,Joint Mobilizations,Manual Therapy,Neuromuscular Re- education,Patient/Caregiver Education,Self-Care/Home Management,Soft Tissue Mobilization,Therapeutic Activities,Therapeutic Exercises Modalities Cold Pack/Ice Massage,Electric Stimulation,Hot Packs, Iontophoresis,Ultrasound Other Therapeutic Interventions Iontophoresis with Dexamethasone, 10 mg/mL Next Visit Focus/Plan Next Note Type Treatment Note Next Visit Plan K-tape assessment, US, Dexamethasone/Ionto trial?, intrinsic foot strengthening as tolerated Plan of Care Dates Plan of Care Start Date 10/17/23 Plan of Care End Date 12/17/23 Electronically Signed by: Feliciano Khan, PT 10/18/23 1369 If you are in agreement with this Plan of Care, please return a signed and dated copy. I have reviewed this Plan of Care and certify that the skilled therapy services above are required to meet the patient?s needs. Physician Signature Date Printed Name and Credentials Clinical Instructor Signature Printed Name and Credentials
--- NOTE | 2023-10-19 15:59 | PT.OTN ---
Current Diagnoses Plantar fascial fibromatosis (10/19/23) Physical Therapy Treatment Note PT-OP-A Visit Information Start: 10/17/23 17:35 Freq: Status: Active Protocol: Document 10/19/23 15:15 DCW (Rec: 10/19/23 15:59 DCW [id number]) Out-Patient Physical Therapy Visit Information Visit Information Visit Type Treatment Note Visit Start Time 15:15 Visit Stop Time 16:00 Visit Number 2 Number of COLLAR TACKER Visits 0 Evaluation Information Evaluation Date 10/17/23 PT-OP-B Current Condition Start: 10/17/23 17:35 Freq: Status: Active Protocol: Document 10/17/23 16:00 DCW (Rec: 10/18/23 12:38 DCW [id number]) Current Condition History of Current Condition Onset Date Five month history Current Complaints R foot pain History of Current Condition Pt is a 68 year old male presenting with a five month history of right plantar surface foot pain. Pt reports pain began in early June of this year, continued worsening until he saw Dr Solis in mid-July. Pt at that time was instructed to stop hiking and running for six weeks. Pain continued after his break from those activities, so pt has largely avoided them since. Eventually underwent an MRI, which showed a tear in his plantar fascia, as well as chronic fasciitis. Other than avoiding his usual exercise activities , his pain does not restrict his activity. When he walks, he experiences burning in his foot. More walking equals more burning. Has tried to return a bit to hiking/running, and while he does not have pain during, it does burn more later. Also green a lot in the morning when first standing up on his feet. Wears an ankle compression sleeve, but does not feel there is much benefit , as there is no real compression on the painful area, which is on the right plantar surface of the calcaneous, slightly medial to midline. Prior Treatments and Tests R foot MRI: IMPRESSION: 1. Partial tearing of the central band of the plantar fascia at its origin with surrounding soft tissue and osseous edema, superimposed on chronic fasciitis. No acute osseous fracture. No enhancing soft tissue mass. 2. Mild Achilles tendinosis. 3. Mild distal posterior tibialis tenosynovitis. 4. Mild degenerative changes in the forefoot. Roverto Fernandez M.D . on 09/10/2023 PT-OP-C Subjective Start: 10/17/23 17:35 Freq: Status: Active Protocol: Document 10/19/23 15:15 DCW (Rec: 10/19/23 15:59 DCW [id number]) OP-PT Subjective Patient Comments Patient Comments I spent all day sitting in a boat fishing, I've walked maybe 200 yards all day, and I 'm still having that burning. Minimal noticable change with k-tape PT-OP-F Manual Assessment Start: 10/17/23 17:35 Freq: Status: Active Protocol: Document 10/17/23 16:00 DCW (Rec: 10/17/23 17:52 DCW [id number]) Manual Assessments Soft Tissue Assessment Soft Tissue Mobility Assessment Noticeable nodule on heel, right plantar surface medial from midline. Tenderness to palpation 2/4: Pain with wincing along that area. No tenderness elsewhere. PT-OP-K Range of Motion Start: 10/17/23 17:35 Freq: Status: Active Protocol: Document 10/17/23 16:00 DCW (Rec: 10/17/23 17:52 DCW [id number]) Ankle and Foot Goniometric Range of Motion Ankle and Foot Right Active Ankle/Foot ROM WFL Yes Testing Position Sitting Comments ROM WNL PT-OP-M Strength Start: 10/17/23 17:35 Freq: Status: Active Protocol: Document 10/17/23 16:00 DCW (Rec: 10/17/23 17:52 DCW [id number]) Ankle/Foot Strength Ankle and Foot Manual Muscle Testing Right Dorsiflexion (L4) 5 Normal Plantarflexion (S1) 5 Normal Inversion 5 Normal Eversion (S1) 5 Normal Toe Strength Toe Manual Muscle Testing Right 2nd Toe Flexion 5 Normal Extension 5 Normal Right Great Toe Flexion 5 Normal Extension 5 Normal PT-OP-Q Treatments Start: 10/17/23 17:35 Freq: Status: Active Protocol: Document 10/19/23 15:15 DCW (Rec: 10/19/23 15:59 DCW [id number]) Therapeutic Exercises Sitting Exercises Intrinsic Strengthening Sitting Exercise Name [place] pick-up, Towel twenty one dealer, Short foot Side right Manual Therapy Treatment Taping Plantar Fascia Body Location R Plantar fascia Treatment Focus stabilization of plantar surface Type of Tape Racheal Comments Two strips saddle around heel PT-OP-R Modalities Start: 10/17/23 17:35 Freq: Status: Active Protocol: Document 10/19/23 15:15 DCW (Rec: 10/19/23 15:59 DCW [id number]) Ultrasound Therapy Treatment Right Foot Patient Position Supine Coupling Medium Ultrasound Gel Applicator Size (cm2) 2 Frequency Setting (mHz) 3 Mode Setting Pulsed Duty Cycle 50% Intensity Setting (w/cm2) 0.8 Comments 8 minutes PT-OP-T Assessment and Plan Start: 10/17/23 17:35 Freq: Status: Active Protocol: Document 10/19/23 15:15 DCW (Rec: 10/19/23 15:59 DCW [id number]) Physical Therapy Assessment Impairments Impairments Activity Tolerance,Functional Activities,Functional Mobility ,Pain Goals 2 Impairment Pt unable to run without burning in right plantar surface Director Of Individual Giving Goal (LTG) Pt to report return to prior level of participation in running exercise with no increased symptoms of right plantar pain LTG Duration 12/18/23 1 Impairment Pt does not have an appropriate home exercise program Short Term Goal (STG) Pt to be independent and compliant with appropriate HEP STG Duration 11/17/23 Assessment Summary Assessment Minimal changes since initial evaluation, pt noted K-tape didn't help. Trial of Racheal taping today, assess effectiveness next visit. Physical Therapy Plan Frequency and Duration Frequency of Treatment 2x/Week Plan of Care Start Date 10/17/23 Plan of Care End Date 12/17/23 Therapeutic Interventions Therapeutic Interventions Coordination Training,Gait Training,Home Exercise Program ,Joint Mobilizations,Manual Therapy,Neuromuscular Re- education,Patient/Caregiver Education,Self-Care/Home Management,Soft Tissue Mobilization,Therapeutic Activities,Therapeutic Exercises Modalities Cold Pack/Ice Massage,Electric Stimulation,Hot Packs, Iontophoresis,Ultrasound Other Therapeutic Interventions Iontophoresis with Dexamethasone, 10 mg/mL Next Visit Focus/Plan Next Note Type Treatment Note Next Visit Plan Racheal assessment, US, Dexamethasone/Ionto trial?, intrinsic foot strengthening as tolerated
--- NOTE | 2023-10-22 16:13 | PT.OTN ---
Current Diagnoses Plantar fascial fibromatosis (10/22/23) Physical Therapy Treatment Note PT-OP-A Visit Information Start: 10/17/23 17:35 Freq: Status: Active Protocol: Document 10/22/23 14:09 AB (Rec: 10/22/23 16:12 AB [id number]) Out-Patient Physical Therapy Visit Information Visit Information Visit Type Treatment Note Visit Start Time 15:18 Visit Stop Time 15:57 Visit Number 3 Number of LIFE SKILLS WORKER Visits 1 Evaluation Information Evaluation Date 10/17/23 PT-OP-B Current Condition Start: 10/17/23 17:35 Freq: Status: Active Protocol: Document 10/17/23 16:00 DCW (Rec: 10/18/23 12:38 DCW [id number]) Current Condition History of Current Condition Onset Date Five month history Current Complaints R foot pain History of Current Condition Pt is a 68 year old male presenting with a five month history of right plantar surface foot pain. Pt reports pain began in early June of this year, continued worsening until he saw Dr Solis in mid-July. Pt at that time was instructed to stop hiking and running for six weeks. Pain continued after his break from those activities, so pt has largely avoided them since. Eventually underwent an MRI, which showed a tear in his plantar fascia, as well as chronic fasciitis. Other than avoiding his usual exercise activities , his pain does not restrict his activity. When he walks, he experiences burning in his foot. More walking equals more burning. Has tried to return a bit to hiking/running, and while he does not have pain during, it does burn more later. Also green a lot in the morning when first standing up on his feet. Wears an ankle compression sleeve, but does not feel there is much benefit , as there is no real compression on the painful area, which is on the right plantar surface of the calcaneous, slightly medial to midline. Prior Treatments and Tests R foot MRI: IMPRESSION: 1. Partial tearing of the central band of the plantar fascia at its origin with surrounding soft tissue and osseous edema, superimposed on chronic fasciitis. No acute osseous fracture. No enhancing soft tissue mass. 2. Mild Achilles tendinosis. 3. Mild distal posterior tibialis tenosynovitis. 4. Mild degenerative changes in the forefoot. Roverto Fernandez M.D . on 09/10/2023 PT-OP-C Subjective Start: 10/17/23 17:35 Freq: Status: Active Protocol: Document 10/22/23 14:09 AB (Rec: 10/22/23 16:12 AB [id number]) OP-PT Subjective Patient Comments Patient Comments Patient reports the lump seems a little smaller, but the pain is the same. Patient reports he doesn't think the tape made a difference. PT-OP-F Manual Assessment Start: 10/17/23 17:35 Freq: Status: Active Protocol: Document 10/17/23 16:00 DCW (Rec: 10/17/23 17:52 DCW [id number]) Manual Assessments Soft Tissue Assessment Soft Tissue Mobility Assessment Noticeable nodule on heel, right plantar surface medial from midline. Tenderness to palpation 2/4: Pain with wincing along that area. No tenderness elsewhere. PT-OP-K Range of Motion Start: 10/17/23 17:35 Freq: Status: Active Protocol: Document 10/17/23 16:00 DCW (Rec: 10/17/23 17:52 DCW [id number]) Ankle and Foot Goniometric Range of Motion Ankle and Foot Right Active Ankle/Foot ROM WFL Yes Testing Position Sitting Comments ROM WNL PT-OP-M Strength Start: 10/17/23 17:35 Freq: Status: Active Protocol: Document 10/17/23 16:00 DCW (Rec: 10/17/23 17:52 DCW [id number]) Ankle/Foot Strength Ankle and Foot Manual Muscle Testing Right Dorsiflexion (L4) 5 Normal Plantarflexion (S1) 5 Normal Inversion 5 Normal Eversion (S1) 5 Normal Toe Strength Toe Manual Muscle Testing Right 2nd Toe Flexion 5 Normal Extension 5 Normal Right Great Toe Flexion 5 Normal Extension 5 Normal PT-OP-Q Treatments Start: 10/17/23 17:35 Freq: Status: Active Protocol: Document 10/22/23 14:09 AB (Rec: 10/22/23 16:12 AB [id number]) Therapeutic Exercises Sitting Exercises AROM DF Side right Reps/Minutes X15 Comments post calf stretches Intrinsic Strengthening Sitting Exercise Name Towel cable assembler and swager (on slideboard) shortened foot (seated and standing) Side right Standing Exercises calf stretches Standing Exercise Name Soleus and gastroc Side right Reps/Minutes X2 each 60 seconds Comments Verbal cues to keep heel on the floor Manual Therapy Treatment Soft Tissue Mobilization right foot Body Location plantar surface Mobilization Type Cross-Friction,Rolling Intensity/Depth Moderate Body Position Hooklying Comments increased focus on areas of increased tissue density decreased tissue mobility Self-Care/Home Management Treatment Education Other Education Discussed trial of resting splint to place it on the right foot each night and remove it when pain increases. PT-OP-R Modalities Start: 10/17/23 17:35 Freq: Status: Active Protocol: Document 10/22/23 14:09 AB (Rec: 10/22/23 16:12 AB [id number]) Ultrasound Therapy Treatment Right Foot Patient Position Prone Applicator Size (cm2) 2 Frequency Setting (mHz) 3 Intensity Setting (w/cm2) 0.8 Comments 8 minutes PT-OP-T Assessment and Plan Start: 10/17/23 17:35 Freq: Status: Active Protocol: Document 10/22/23 14:09 AB (Rec: 10/22/23 16:12 AB [id number]) Physical Therapy Assessment Goals 2 Impairment Pt unable to run without burning in right plantar surface Impairment decreased pelvic floor endurance Correction Goal (LTG) Pt to report return to prior level of participation in running exercise with no increased symptoms of right plantar pain LTG Duration 12/18/23 1 Impairment Pt does not have an appropriate home exercise program Impairment urinary stress incontinence with running Short Term Goal (STG) Pt to be independent and compliant with appropriate HEP STG Duration 11/17/23 Assessment Summary Assessment Areas of increased tissue density and decreased tissue mobility plantar surface of right foot persists, as well as reports of pain when ambulating once out of bed. Good return demonstrations for exercises, was able to perform towel scrunch with towel on slide board. Physical Therapy Plan Frequency and Duration Frequency of Treatment 2x/Week Plan of Care Start Date 10/17/23 Plan of Care End Date 12/17/23 Next Visit Focus/Plan Next Note Type Treatment Note Next Visit Plan US, Dexamethasone/Ionto trial? , intrinsic foot strengthening as tolerated
--- NOTE | 2023-10-24 15:18 | PT.OTN ---
Current Diagnoses Plantar fascial fibromatosis (10/24/23) Physical Therapy Treatment Note PT-OP-A Visit Information Start: 10/17/23 17:35 Freq: Status: Active Protocol: Document 10/24/23 14:31 DCW (Rec: 10/24/23 15:17 DCW [id number]) Out-Patient Physical Therapy Visit Information Visit Information Visit Type Treatment Note Visit Start Time 14:31 Visit Stop Time 15:15 Visit Number 4 Number of IT RISK AND ASSURANCE MANAGER Visits 0 Evaluation Information Evaluation Date 10/17/23 PT-OP-B Current Condition Start: 10/17/23 17:35 Freq: Status: Active Protocol: Document 10/17/23 16:00 DCW (Rec: 10/18/23 12:38 DCW [id number]) Current Condition History of Current Condition Onset Date Five month history Current Complaints R foot pain History of Current Condition Pt is a 68 year old male presenting with a five month history of right plantar surface foot pain. Pt reports pain began in early June of this year, continued worsening until he saw Dr Solis in mid-July. Pt at that time was instructed to stop hiking and running for six weeks. Pain continued after his break from those activities, so pt has largely avoided them since. Eventually underwent an MRI, which showed a tear in his plantar fascia, as well as chronic fasciitis. Other than avoiding his usual exercise activities , his pain does not restrict his activity. When he walks, he experiences burning in his foot. More walking equals more burning. Has tried to return a bit to hiking/running, and while he does not have pain during, it does burn more later. Also green a lot in the morning when first standing up on his feet. Wears an ankle compression sleeve, but does not feel there is much benefit , as there is no real compression on the painful area, which is on the right plantar surface of the calcaneous, slightly medial to midline. Prior Treatments and Tests R foot MRI: IMPRESSION: 1. Partial tearing of the central band of the plantar fascia at its origin with surrounding soft tissue and osseous edema, superimposed on chronic fasciitis. No acute osseous fracture. No enhancing soft tissue mass. 2. Mild Achilles tendinosis. 3. Mild distal posterior tibialis tenosynovitis. 4. Mild degenerative changes in the forefoot. Roverto Fernandez M.D . on 09/10/2023 PT-OP-C Subjective Start: 10/17/23 17:35 Freq: Status: Active Protocol: Document 10/24/23 14:31 DCW (Rec: 10/24/23 15:17 DCW [id number]) OP-PT Subjective Patient Comments Patient Comments About the same. I was going to say gautam bermeo might be doing better, I walked around [place] yesterday, and it did well, but it's kind of back to normal today. PT-OP-F Manual Assessment Start: 10/17/23 17:35 Freq: Status: Active Protocol: Document 10/17/23 16:00 DCW (Rec: 10/17/23 17:52 DCW [id number]) Manual Assessments Soft Tissue Assessment Soft Tissue Mobility Assessment Noticeable nodule on heel, right plantar surface medial from midline. Tenderness to palpation 2/4: Pain with wincing along that area. No tenderness elsewhere. PT-OP-K Range of Motion Start: 10/17/23 17:35 Freq: Status: Active Protocol: Document 10/17/23 16:00 DCW (Rec: 10/17/23 17:52 DCW [id number]) Ankle and Foot Goniometric Range of Motion Ankle and Foot Right Active Ankle/Foot ROM WFL Yes Testing Position Sitting Comments ROM WNL PT-OP-M Strength Start: 10/17/23 17:35 Freq: Status: Active Protocol: Document 10/17/23 16:00 DCW (Rec: 10/17/23 17:52 DCW [id number]) Ankle/Foot Strength Ankle and Foot Manual Muscle Testing Right Dorsiflexion (L4) 5 Normal Plantarflexion (S1) 5 Normal Inversion 5 Normal Eversion (S1) 5 Normal Toe Strength Toe Manual Muscle Testing Right 2nd Toe Flexion 5 Normal Extension 5 Normal Right Great Toe Flexion 5 Normal Extension 5 Normal PT-OP-Q Treatments Start: 10/17/23 17:35 Freq: Status: Active Protocol: Document 10/24/23 14:31 DCW (Rec: 10/24/23 15:17 DCW [id number]) Therapeutic Exercises Sitting Exercises AROM DF Side right Reps/Minutes X15 Comments post calf stretches Intrinsic Strengthening Sitting Exercise Name short foot (seated and standing) Side right Other Exercises BOSU Stance Other Exercise Name BOSU SLS Side right Manual Therapy Treatment Soft Tissue Mobilization right foot Body Location plantar surface Mobilization Type Cross-Friction,Rolling Intensity/Depth Moderate Body Position Hooklying Comments increased focus on areas of increased tissue density decreased tissue mobility PT-OP-R Modalities Start: 10/17/23 17:35 Freq: Status: Active Protocol: Document 10/24/23 14:31 DCW (Rec: 10/24/23 15:17 DCW [id number]) Ultrasound Therapy Treatment Right Foot Patient Position Prone Applicator Size (cm2) 2 Frequency Setting (mHz) 3 Intensity Setting (w/cm2) 0.8 Comments 8 minutes PT-OP-T Assessment and Plan Start: 10/17/23 17:35 Freq: Status: Active Protocol: Document 10/24/23 14:31 DCW (Rec: 10/24/23 15:17 DCW [id number]) Physical Therapy Assessment Impairments Impairments Activity Tolerance,Functional Activities,Functional Mobility ,Pain Goals 2 Impairment Pt unable to run without burning in right plantar surface Alf Goal (LTG) Pt to report return to prior level of participation in running exercise with no increased symptoms of right plantar pain LTG Duration 12/18/23 1 Impairment Pt does not have an appropriate home exercise program Short Term Goal (STG) Pt to be independent and compliant with appropriate HEP STG Duration 11/17/23 Assessment Summary Assessment Nodule on right heel appears to be decreasing in size, pt able to tolerate occasional increase in ambulation, however will still get some burning/stinging randomly when walking Physical Therapy Plan Frequency and Duration Frequency of Treatment 2x/Week Plan of Care Start Date 10/17/23 Plan of Care End Date 12/17/23 Therapeutic Interventions Therapeutic Interventions Coordination Training,Gait Training,Home Exercise Program ,Joint Mobilizations,Manual Therapy,Neuromuscular Re- education,Patient/Caregiver Education,Self-Care/Home Management,Soft Tissue Mobilization,Therapeutic Activities,Therapeutic Exercises Modalities Cold Pack/Ice Massage,Electric Stimulation,Hot Packs, Iontophoresis,Ultrasound Other Therapeutic Interventions Iontophoresis with Dexamethasone, 10 mg/mL Next Visit Focus/Plan Next Note Type Treatment Note Next Visit Plan US, Dexamethasone/Ionto trial? , intrinsic foot strengthening as tolerated
--- NOTE | 2023-10-31 11:58 | PT.OTN ---
Current Diagnoses Plantar fascial fibromatosis (10/31/23) Physical Therapy Treatment Note PT-OP-A Visit Information Start: 10/17/23 17:35 Freq: Status: Active Protocol: Document 10/31/23 11:18 DCW (Rec: 10/31/23 11:58 DCW [id number]) Out-Patient Physical Therapy Visit Information Visit Information Visit Type Treatment Note Visit Start Time 11:18 Visit Stop Time 12:00 Visit Number 5 Number of DIRECTOR BIOINFORMATICS Visits 0 Evaluation Information Evaluation Date 10/17/23 PT-OP-B Current Condition Start: 10/17/23 17:35 Freq: Status: Active Protocol: Document 10/17/23 16:00 DCW (Rec: 10/18/23 12:38 DCW [id number]) Current Condition History of Current Condition Onset Date Five month history Current Complaints R foot pain History of Current Condition Pt is a 68 year old male presenting with a five month history of right plantar surface foot pain. Pt reports pain began in early June of this year, continued worsening until he saw Dr Solis in mid-July. Pt at that time was instructed to stop hiking and running for six weeks. Pain continued after his break from those activities, so pt has largely avoided them since. Eventually underwent an MRI, which showed a tear in his plantar fascia, as well as chronic fasciitis. Other than avoiding his usual exercise activities , his pain does not restrict his activity. When he walks, he experiences burning in his foot. More walking equals more burning. Has tried to return a bit to hiking/running, and while he does not have pain during, it does burn more later. Also green a lot in the morning when first standing up on his feet. Wears an ankle compression sleeve, but does not feel there is much benefit , as there is no real compression on the painful area, which is on the right plantar surface of the calcaneous, slightly medial to midline. Prior Treatments and Tests R foot MRI: IMPRESSION: 1. Partial tearing of the central band of the plantar fascia at its origin with surrounding soft tissue and osseous edema, superimposed on chronic fasciitis. No acute osseous fracture. No enhancing soft tissue mass. 2. Mild Achilles tendinosis. 3. Mild distal posterior tibialis tenosynovitis. 4. Mild degenerative changes in the forefoot. Roverto Fernandez M.D . on 09/10/2023 PT-OP-C Subjective Start: 10/17/23 17:35 Freq: Status: Active Protocol: Document 10/31/23 11:18 DCW (Rec: 10/31/23 11:58 DCW [id number]) OP-PT Subjective Patient Comments Patient Comments Pt reports he got another Cortizone injection yesterday, and went for a light two mile run on Sunday, feels like he' s doing a bit better overall. PT-OP-F Manual Assessment Start: 10/17/23 17:35 Freq: Status: Active Protocol: Document 10/17/23 16:00 DCW (Rec: 10/17/23 17:52 DCW [id number]) Manual Assessments Soft Tissue Assessment Soft Tissue Mobility Assessment Noticeable nodule on heel, right plantar surface medial from midline. Tenderness to palpation 2/4: Pain with wincing along that area. No tenderness elsewhere. PT-OP-K Range of Motion Start: 10/17/23 17:35 Freq: Status: Active Protocol: Document 10/17/23 16:00 DCW (Rec: 10/17/23 17:52 DCW [id number]) Ankle and Foot Goniometric Range of Motion Ankle and Foot Right Active Ankle/Foot ROM WFL Yes Testing Position Sitting Comments ROM WNL PT-OP-M Strength Start: 10/17/23 17:35 Freq: Status: Active Protocol: Document 10/17/23 16:00 DCW (Rec: 10/17/23 17:52 DCW [id number]) Ankle/Foot Strength Ankle and Foot Manual Muscle Testing Right Dorsiflexion (L4) 5 Normal Plantarflexion (S1) 5 Normal Inversion 5 Normal Eversion (S1) 5 Normal Toe Strength Toe Manual Muscle Testing Right 2nd Toe Flexion 5 Normal Extension 5 Normal Right Great Toe Flexion 5 Normal Extension 5 Normal PT-OP-Q Treatments Start: 10/17/23 17:35 Freq: Status: Active Protocol: Document 10/31/23 11:18 DCW (Rec: 10/31/23 11:58 DCW [id number]) Gym Equipment Shuttle Balance Red Details WBOS, Staggered Therapeutic Exercises Standing Exercises calf stretches Standing Exercise Name Soleus and gastroc Side bilateral Equipment Used MAXIMO Reps/Minutes X2 each 60 seconds Manual Therapy Treatment Soft Tissue Mobilization right foot Body Location plantar surface Mobilization Type Cross-Friction,Rolling Intensity/Depth Moderate Body Position Prone Comments increased focus on areas of increased tissue density decreased tissue mobility PT-OP-R Modalities Start: 10/17/23 17:35 Freq: Status: Active Protocol: Document 10/31/23 11:18 DCW (Rec: 10/31/23 11:58 MEW [id number]) Ultrasound Therapy Treatment Right Foot Patient Position Prone Applicator Size (cm2) 2 Frequency Setting (mHz) 3 Intensity Setting (w/cm2) 0.8 Comments 8 minutes PT-OP-T Assessment and Plan Start: 10/17/23 17:35 Freq: Status: Active Protocol: Document 10/31/23 11:18 DCW (Rec: 10/31/23 11:58 MEW [id number]) Physical Therapy Assessment Assessment Summary Assessment Pt showing improvement overall , pt no longer complaining of burning on his foot with activity. Not much response to injection yesterday yet, pt hopeful it improves more over the next few days. Physical Therapy Plan Frequency and Duration Frequency of Treatment 2x/Week Plan of Care Start Date 10/17/23 Plan of Care End Date 12/17/23 Therapeutic Interventions Therapeutic Interventions Coordination Training,Gait Training,Home Exercise Program ,Joint Mobilizations,Manual Therapy,Neuromuscular Re- education,Patient/Caregiver Education,Self-Care/Home Management,Soft Tissue Mobilization,Therapeutic Activities,Therapeutic Exercises Modalities Cold Pack/Ice Massage,Electric Stimulation,Hot Packs, Iontophoresis,Ultrasound Other Therapeutic Interventions Iontophoresis with Dexamethasone, 10 mg/mL Next Visit Focus/Plan Next Note Type Treatment Note Next Visit Plan US, Dexamethasone/Ionto trial? , intrinsic foot strengthening as tolerated
--- NOTE | 2023-11-02 16:44 | PT.OTN ---
Current Diagnoses Plantar fascial fibromatosis (11/02/23) Physical Therapy Treatment Note PT-OP-A Visit Information Start: 10/17/23 17:35 Freq: Status: Active Protocol: Document 11/02/23 16:04 DCW (Rec: 11/02/23 16:44 DCW [id number]) Out-Patient Physical Therapy Visit Information Visit Information Visit Type Treatment Note Visit Start Time 16:04 Visit Stop Time 16:45 Visit Number 6 Number of SPECIMEN PROCESSOR Visits 0 Evaluation Information Evaluation Date 10/17/23 PT-OP-B Current Condition Start: 10/17/23 17:35 Freq: Status: Active Protocol: Document 10/17/23 16:00 DCW (Rec: 10/18/23 12:38 DCW [id number]) Current Condition History of Current Condition Onset Date Five month history Current Complaints R foot pain History of Current Condition Pt is a 68 year old male presenting with a five month history of right plantar surface foot pain. Pt reports pain began in early June of this year, continued worsening until he saw Dr Solis in mid-July. Pt at that time was instructed to stop hiking and running for six weeks. Pain continued after his break from those activities, so pt has largely avoided them since. Eventually underwent an MRI, which showed a tear in his plantar fascia, as well as chronic fasciitis. Other than avoiding his usual exercise activities , his pain does not restrict his activity. When he walks, he experiences burning in his foot. More walking equals more burning. Has tried to return a bit to hiking/running, and while he does not have pain during, it does burn more later. Also grene a lot in the morning when first standing up on his feet. Wears an ankle compression sleeve, but does not feel there is much benefit , as there is no real compression on the painful area, which is on the right plantar surface of the calcaneous, slightly medial to midline. Prior Treatments and Tests R foot MRI: IMPRESSION: 1. Partial tearing of the central band of the plantar fascia at its origin with surrounding soft tissue and osseous edema, superimposed on chronic fasciitis. No acute osseous fracture. No enhancing soft tissue mass. 2. Mild Achilles tendinosis. 3. Mild distal posterior tibialis tenosynovitis. 4. Mild degenerative changes in the forefoot. Roverto Fernandez M.D . on 09/10/2023 PT-OP-C Subjective Start: 10/17/23 17:35 Freq: Status: Active Protocol: Document 11/02/23 16:04 DCW (Rec: 11/02/23 16:44 DCW [id number]) OP-PT Subjective Patient Comments Patient Comments My foot's finally feeling better, notes he was on his feet for ~6 hours yesterday, then walking around [employer] , felt it a little bit a few times, but otherwise doing really well. PT-OP-F Manual Assessment Start: 10/17/23 17:35 Freq: Status: Active Protocol: Document 10/17/23 16:00 DCW (Rec: 10/17/23 17:52 DCW [id number]) Manual Assessments Soft Tissue Assessment Soft Tissue Mobility Assessment Noticeable nodule on heel, right plantar surface medial from midline. Tenderness to palpation 2/4: Pain with wincing along that area. No tenderness elsewhere. PT-OP-K Range of Motion Start: 10/17/23 17:35 Freq: Status: Active Protocol: Document 10/17/23 16:00 DCW (Rec: 10/17/23 17:52 DCW [id number]) Ankle and Foot Goniometric Range of Motion Ankle and Foot Right Active Ankle/Foot ROM WFL Yes Testing Position Sitting Comments ROM WNL PT-OP-M Strength Start: 10/17/23 17:35 Freq: Status: Active Protocol: Document 10/17/23 16:00 DCW (Rec: 10/17/23 17:52 DCW [id number]) Ankle/Foot Strength Ankle and Foot Manual Muscle Testing Right Dorsiflexion (L4) 5 Normal Plantarflexion (S1) 5 Normal Inversion 5 Normal Eversion (S1) 5 Normal Toe Strength Toe Manual Muscle Testing Right 2nd Toe Flexion 5 Normal Extension 5 Normal Right Great Toe Flexion 5 Normal Extension 5 Normal PT-OP-Q Treatments Start: 10/17/23 17:35 Freq: Status: Active Protocol: Document 11/02/23 16:04 DCW (Rec: 11/02/23 16:44 DCW [id number]) Therapeutic Exercises Standing Exercises calf stretches Standing Exercise Name Soleus and gastroc Side bilateral Equipment Used MAXIMO Reps/Minutes X2 each 60 seconds Manual Therapy Treatment Soft Tissue Mobilization right foot Body Location plantar surface Mobilization Type Cross-Friction,Rolling Intensity/Depth Moderate Body Position Prone Comments increased focus on areas of increased tissue density decreased tissue mobility PT-OP-R Modalities Start: 10/17/23 17:35 Freq: Status: Active Protocol: Document 11/02/23 16:04 DCW (Rec: 11/02/23 16:44 DCW [id number]) Ultrasound Therapy Treatment Right Foot Patient Position Prone Applicator Size (cm2) 2 Frequency Setting (mHz) 3 Intensity Setting (w/cm2) 0.8 Comments 8 minutes PT-OP-T Assessment and Plan Start: 10/17/23 17:35 Freq: Status: Active Protocol: Document 11/02/23 16:04 DCW (Rec: 11/02/23 16:44 DCW [id number]) Physical Therapy Assessment Impairments Impairments Activity Tolerance,Functional Activities,Functional Mobility ,Pain Goals 2 Impairment Pt unable to run without burning in right plantar surface Intermediate Goal (LTG) Pt to report return to prior level of participation in running exercise with no increased symptoms of right plantar pain LTG Duration 12/18/23 1 Impairment Pt does not have an appropriate home exercise program Short Term Goal (STG) Pt to be independent and compliant with appropriate HEP STG Duration 11/17/23 Assessment Summary Assessment Continues to do well with ongoing treatment, pain much less frequent and less severe. Pt tolerating activity and walking much better. Physical Therapy Plan Frequency and Duration Frequency of Treatment 2x/Week Plan of Care Start Date 10/17/23 Plan of Care End Date 12/17/23 Therapeutic Interventions Therapeutic Interventions Coordination Training,Gait Training,Home Exercise Program ,Joint Mobilizations,Manual Therapy,Neuromuscular Re- education,Patient/Caregiver Education,Self-Care/Home Management,Soft Tissue Mobilization,Therapeutic Activities,Therapeutic Exercises Modalities Cold Pack/Ice Massage,Electric Stimulation,Hot Packs, Iontophoresis,Ultrasound Other Therapeutic Interventions Iontophoresis with Dexamethasone, 10 mg/mL Next Visit Focus/Plan Next Note Type Treatment Note Next Visit Plan US, Dexamethasone/Ionto trial? , intrinsic foot strengthening as tolerated
--- NOTE | 2023-11-05 11:44 | PT.OTN ---
Current Diagnoses Plantar fascial fibromatosis (11/05/23) Physical Therapy Treatment Note PT-OP-A Visit Information Start: 10/17/23 17:35 Freq: Status: Active Protocol: Document 11/05/23 08:07 AB (Rec: 11/05/23 10:24 AB [id number]) Out-Patient Physical Therapy Visit Information Visit Information Visit Type Treatment Note Visit Note Access Code [email or web address] Visit Start Time 08:17 Visit Stop Time 09:00 Visit Number 7 Number of SCREEN MAKING SUPERVISOR Visits 1 Evaluation Information Evaluation Date 10/17/23 PT-OP-B Current Condition Start: 10/17/23 17:35 Freq: Status: Active Protocol: Document 10/17/23 16:00 DCW (Rec: 10/18/23 12:38 DCW [id number]) Current Condition History of Current Condition Onset Date Five month history Current Complaints R foot pain History of Current Condition Pt is a 68 year old male presenting with a five month history of right plantar surface foot pain. Pt reports pain began in early June of this year, continued worsening until he saw Dr Solis in mid-July. Pt at that time was instructed to stop hiking and running for six weeks. Pain continued after his break from those activities, so pt has largely avoided them since. Eventually underwent an MRI, which showed a tear in his plantar fascia, as well as chronic fasciitis. Other than avoiding his usual exercise activities , his pain does not restrict his activity. When he walks, he experiences burning in his foot. More walking equals more burning. Has tried to return a bit to hiking/running, and while he does not have pain during, it does burn more later. Also green a lot in the morning when first standing up on his feet. Wears an ankle compression sleeve, but does not feel there is much benefit , as there is no real compression on the painful area, which is on the right plantar surface of the calcaneous, slightly medial to midline. Prior Treatments and Tests R foot MRI: IMPRESSION: 1. Partial tearing of the central band of the plantar fascia at its origin with surrounding soft tissue and osseous edema, superimposed on chronic fasciitis. No acute osseous fracture. No enhancing soft tissue mass. 2. Mild Achilles tendinosis. 3. Mild distal posterior tibialis tenosynovitis. 4. Mild degenerative changes in the forefoot. Roverto Fernandez M.D . on 09/10/2023 PT-OP-C Subjective Start: 10/17/23 17:35 Freq: Status: Active Protocol: Document 11/05/23 08:07 AB (Rec: 11/05/23 10:24 AB [id number]) OP-PT Subjective Patient Comments Patient Comments Patient reports he tried running 2 miles, was more sore that afternoon and the next morning. Dynamic valgus with SLS right and left LE. PT-OP-F Manual Assessment Start: 10/17/23 17:35 Freq: Status: Active Protocol: Document 10/17/23 16:00 DCW (Rec: 10/17/23 17:52 DCW [id number]) Manual Assessments Soft Tissue Assessment Soft Tissue Mobility Assessment Noticeable nodule on heel, right plantar surface medial from midline. Tenderness to palpation 2/4: Pain with wincing along that area. No tenderness elsewhere. PT-OP-K Range of Motion Start: 10/17/23 17:35 Freq: Status: Active Protocol: Document 10/17/23 16:00 DCW (Rec: 10/17/23 17:52 DCW [id number]) Ankle and Foot Goniometric Range of Motion Ankle and Foot Right Active Ankle/Foot ROM WFL Yes Testing Position Sitting Comments ROM WNL PT-OP-M Strength Start: 10/17/23 17:35 Freq: Status: Active Protocol: Document 10/17/23 16:00 DCW (Rec: 10/17/23 17:52 DCW [id number]) Ankle/Foot Strength Ankle and Foot Manual Muscle Testing Right Dorsiflexion (L4) 5 Normal Plantarflexion (S1) 5 Normal Inversion 5 Normal Eversion (S1) 5 Normal Toe Strength Toe Manual Muscle Testing Right 2nd Toe Flexion 5 Normal Extension 5 Normal Right Great Toe Flexion 5 Normal Extension 5 Normal PT-OP-Q Treatments Start: 10/17/23 17:35 Freq: Status: Active Protocol: Document 11/05/23 08:07 AB (Rec: 11/05/23 10:24 AB [id number]) Therapeutic Exercises Sitting Exercises AROM DF Side right Reps/Minutes X15 Comments post calf stretches Standing Exercises side stepping with band ankles Resistance level 5 band Reps/Minutes 12 feet left and right X 3 Comments Verbal cues for avoding toes out standing glute med activation Reps/Minutes one minute left and right LE X 1 Comments Pt ed rationale of one minute hold for activation. calf stretches Standing Exercise Name Soleus and gastroc Side bilateral Equipment Used MAXIMO Reps/Minutes X2 each 60 seconds Manual Therapy Treatment Soft Tissue Mobilization right foot Body Location plantar surface and calf muscles this session Mobilization Type Cross-Friction,Rolling Intensity/Depth Moderate Body Position Prone Comments increased focus on areas of increased tissue density decreased tissue mobility prior to stretch PT-OP-R Modalities Start: 10/17/23 17:35 Freq: Status: Active Protocol: Document 11/02/23 16:04 DCW (Rec: 11/02/23 16:44 DCW [id number]) Ultrasound Therapy Treatment Right Foot Patient Position Prone Applicator Size (cm2) 2 Frequency Setting (mHz) 3 Intensity Setting (w/cm2) 0.8 Comments 8 minutes PT-OP-T Assessment and Plan Start: 10/17/23 17:35 Freq: Status: Active Protocol: Document 11/05/23 08:07 AB (Rec: 11/05/23 10:24 AB [id number]) Physical Therapy Assessment Goals 2 Impairment Pt unable to run without burning in right plantar surface Impairment decreased pelvic floor endurance Senior Living Goal (LTG) Pt to report return to prior level of participation in running exercise with no increased symptoms of right plantar pain LTG Duration 12/18/23 1 Impairment Pt does not have an appropriate home exercise program Impairment urinary stress incontinence with running Short Term Goal (STG) Pt to be independent and compliant with appropriate HEP STG Duration 11/17/23 Assessment Summary Assessment Patient reports feeling like the muscles worked this session. Pain post running persists. Physical Therapy Plan Frequency and Duration Frequency of Treatment 2x/Week Plan of Care Start Date 10/17/23 Plan of Care End Date 12/17/23 Next Visit Focus/Plan Next Note Type Treatment Note Next Visit Plan US, Dexamethasone/Ionto trial? , intrinsic foot strengthening as tolerated focus on balance next session/ possibly Single leg squat with band with UE use/ Heel raise
--- NOTE | 2023-11-07 16:45 | PT.OTN ---
Current Diagnoses Plantar fascial fibromatosis (11/07/23) Physical Therapy Treatment Note PT-OP-A Visit Information Start: 10/17/23 17:35 Freq: Status: Active Protocol: Document 11/07/23 13:11 AB (Rec: 11/07/23 14:41 AB [id number]) Out-Patient Physical Therapy Visit Information Visit Information Visit Type Treatment Note Visit Note Access Code [email or web address] Visit Start Time 14:33 Visit Stop Time 14:32 Visit Number 8 Number of APPLE PEELER OPERATOR Visits 2 Evaluation Information Evaluation Date 10/17/23 PT-OP-B Current Condition Start: 10/17/23 17:35 Freq: Status: Active Protocol: Document 10/17/23 16:00 DCW (Rec: 10/18/23 12:38 DCW [id number]) Current Condition History of Current Condition Onset Date Five month history Current Complaints R foot pain History of Current Condition Pt is a 68 year old male presenting with a five month history of right plantar surface foot pain. Pt reports pain began in early June of this year, continued worsening until he saw Dr Solis in mid-July. Pt at that time was instructed to stop hiking and running for six weeks. Pain continued after his break from those activities, so pt has largely avoided them since. Eventually underwent an MRI, which showed a tear in his plantar fascia, as well as chronic fasciitis. Other than avoiding his usual exercise activities , his pain does not restrict his activity. When he walks, he experiences burning in his foot. More walking equals more burning. Has tried to return a bit to hiking/running, and while he does not have pain during, it does burn more later. Also green a lot in the morning when first standing up on his feet. Wears an ankle compression sleeve, but does not feel there is much benefit , as there is no real compression on the painful area, which is on the right plantar surface of the calcaneous, slightly medial to midline. Prior Treatments and Tests R foot MRI: IMPRESSION: 1. Partial tearing of the central band of the plantar fascia at its origin with surrounding soft tissue and osseous edema, superimposed on chronic fasciitis. No acute osseous fracture. No enhancing soft tissue mass. 2. Mild Achilles tendinosis. 3. Mild distal posterior tibialis tenosynovitis. 4. Mild degenerative changes in the forefoot. Roverto Fernandez M.D . on 09/10/2023 PT-OP-C Subjective Start: 10/17/23 17:35 Freq: Status: Active Protocol: Document 11/07/23 13:11 AB (Rec: 11/07/23 14:41 AB [id number]) OP-PT Subjective Patient Comments Patient Comments Patient reports he jogged 1/4 mile on level on the treadmill , reports he felt it later in the day on the bottom of the foot, but not as much as when he tried running 2 miles. Patient reports walking is a 1 /10 with ambulation 0/10 at rest. Patient reports he is able tolerate the night splint 1/2 the night 3/4 nights that he remembers to do it. Unable to perform a full single leg heel raise right and left LE, dynamic vaglus with SLS right LE PT-OP-F Manual Assessment Start: 10/17/23 17:35 Freq: Status: Active Protocol: Document 10/17/23 16:00 DCW (Rec: 10/17/23 17:52 DCW [id number]) Manual Assessments Soft Tissue Assessment Soft Tissue Mobility Assessment Noticeable nodule on heel, right plantar surface medial from midline. Tenderness to palpation 2/4: Pain with wincing along that area. No tenderness elsewhere. PT-OP-K Range of Motion Start: 10/17/23 17:35 Freq: Status: Active Protocol: Document 10/17/23 16:00 DCW (Rec: 10/17/23 17:52 DCW [id number]) Ankle and Foot Goniometric Range of Motion Ankle and Foot Right Active Ankle/Foot ROM WFL Yes Testing Position Sitting Comments ROM WNL PT-OP-M Strength Start: 10/17/23 17:35 Freq: Status: Active Protocol: Document 10/17/23 16:00 DCW (Rec: 10/17/23 17:52 DCW [id number]) Ankle/Foot Strength Ankle and Foot Manual Muscle Testing Right Dorsiflexion (L4) 5 Normal Plantarflexion (S1) 5 Normal Inversion 5 Normal Eversion (S1) 5 Normal Toe Strength Toe Manual Muscle Testing Right 2nd Toe Flexion 5 Normal Extension 5 Normal Right Great Toe Flexion 5 Normal Extension 5 Normal PT-OP-Q Treatments Start: 10/17/23 17:35 Freq: Status: Active Protocol: Document 11/07/23 13:11 AB (Rec: 11/07/23 15:18 AB [id number]) Therapeutic Exercises Standing Exercises Heel raise Standing Exercise Name single leg Side bilateral Reps/Minutes X10 each LE single leg squat with band Standing Exercise Name facing mirror Side bilateral Resistance light blue band Reps/Minutes X10 X 2 Comments Verbal and visual cues standing glute med activation Reps/Minutes one minute left and right LE X 1 Comments Pt ed rationale of one minute hold for activation. Manual Therapy Treatment Soft Tissue Mobilization right foot Body Location plantar surface Mobilization Type Cross-Friction,Rolling Intensity/Depth Moderate Body Position Prone Comments increased focus on areas of increased tissue density decreased tissue mobility PT-OP-R Modalities Start: 10/17/23 17:35 Freq: Status: Active Protocol: Document 11/07/23 13:11 AB (Rec: 11/07/23 14:53 AB [id number]) Ultrasound Therapy Treatment Right Foot Patient Position Prone Applicator Size (cm2) 2 Frequency Setting (mHz) 3 Intensity Setting (w/cm2) 0.8 Comments 8 minutes PT-OP-T Assessment and Plan Start: 10/17/23 17:35 Freq: Status: Active Protocol: Document 11/07/23 13:11 AB (Rec: 11/07/23 14:41 AB [id number]) Physical Therapy Assessment Goals 2 Impairment Pt unable to run without burning in right plantar surface Impairment decreased pelvic floor endurance Sludge Filtration Attendant Goal (LTG) Pt to report return to prior level of participation in running exercise with no increased symptoms of right plantar pain LTG Duration 12/18/23 1 Impairment Pt does not have an appropriate home exercise program Impairment urinary stress incontinence with running Short Term Goal (STG) Pt to be independent and compliant with appropriate HEP STG Duration 11/17/23 Assessment Summary Assessment Focus on strength/Single leg squat with band and glute med activation this session, strength takes 6-8 weeks to make a change in function. Patient into session with reports of less pain with running decreased distance on level treadmill vs running out doors 2 miles previous session. Physical Therapy Plan Frequency and Duration Frequency of Treatment 2x/Week Plan of Care Start Date 10/17/23 Plan of Care End Date 12/17/23 Next Visit Focus/Plan Next Note Type Treatment Note Next Visit Plan US, Dexamethasone/Ionto trial? , intrinsic foot strengthening as tolerated focus on balance next session/ Assess zachery to Single leg squat with band with UE use/ Heel raise
--- NOTE | 2023-11-13 13:00 | PT.OTN ---
Current Diagnoses Plantar fascial fibromatosis (11/13/23) Physical Therapy Treatment Note PT-OP-A Visit Information Start: 10/17/23 17:35 Freq: Status: Active Protocol: Document 11/13/23 08:09 AB (Rec: 11/13/23 09:46 AB [id number]) Out-Patient Physical Therapy Visit Information Visit Information Visit Type Treatment Note Visit Note Access Code [email or web address] Visit Start Time 09:03 Visit Stop Time 09:45 Visit Number 9 Number of PONY EDGER Visits 3 Evaluation Information Evaluation Date 10/17/23 PT-OP-B Current Condition Start: 10/17/23 17:35 Freq: Status: Active Protocol: Document 10/17/23 16:00 DCW (Rec: 10/18/23 12:38 DCW [id number]) Current Condition History of Current Condition Onset Date Five month history Current Complaints R foot pain History of Current Condition Pt is a 68 year old male presenting with a five month history of right plantar surface foot pain. Pt reports pain began in early June of this year, continued worsening until he saw Dr Solis in mid-July. Pt at that time was instructed to stop hiking and running for six weeks. Pain continued after his break from those activities, so pt has largely avoided them since. Eventually underwent an MRI, which showed a tear in his plantar fascia, as well as chronic fasciitis. Other than avoiding his usual exercise activities , his pain does not restrict his activity. When he walks, he experiences burning in his foot. More walking equals more burning. Has tried to return a bit to hiking/running, and while he does not have pain during, it does burn more later. Also green a lot in the morning when first standing up on his feet. Wears an ankle compression sleeve, but does not feel there is much benefit , as there is no real compression on the painful area, which is on the right plantar surface of the calcaneous, slightly medial to midline. Prior Treatments and Tests R foot MRI: IMPRESSION: 1. Partial tearing of the central band of the plantar fascia at its origin with surrounding soft tissue and osseous edema, superimposed on chronic fasciitis. No acute osseous fracture. No enhancing soft tissue mass. 2. Mild Achilles tendinosis. 3. Mild distal posterior tibialis tenosynovitis. 4. Mild degenerative changes in the forefoot. Roverto Fernandez M.D . on 09/10/2023 PT-OP-C Subjective Start: 10/17/23 17:35 Freq: Status: Active Protocol: Document 11/13/23 08:09 AB (Rec: 11/13/23 09:46 AB [id number]) OP-PT Subjective Patient Comments Patient Comments Patient reports he jogged 1/2 mile on treadmill with with intermittent burning pain after, and [employer] walking ( the day before using the treadmill ) caused the same symptoms. PT-OP-F Manual Assessment Start: 10/17/23 17:35 Freq: Status: Active Protocol: Document 10/17/23 16:00 DCW (Rec: 10/17/23 17:52 DCW [id number]) Manual Assessments Soft Tissue Assessment Soft Tissue Mobility Assessment Noticeable nodule on heel, right plantar surface medial from midline. Tenderness to palpation 2/4: Pain with wincing along that area. No tenderness elsewhere. PT-OP-K Range of Motion Start: 10/17/23 17:35 Freq: Status: Active Protocol: Document 10/17/23 16:00 DCW (Rec: 10/17/23 17:52 DCW [id number]) Ankle and Foot Goniometric Range of Motion Ankle and Foot Right Active Ankle/Foot ROM WFL Yes Testing Position Sitting Comments ROM WNL PT-OP-M Strength Start: 10/17/23 17:35 Freq: Status: Active Protocol: Document 10/17/23 16:00 DCW (Rec: 10/17/23 17:52 DCW [id number]) Ankle/Foot Strength Ankle and Foot Manual Muscle Testing Right Dorsiflexion (L4) 5 Normal Plantarflexion (S1) 5 Normal Inversion 5 Normal Eversion (S1) 5 Normal Toe Strength Toe Manual Muscle Testing Right 2nd Toe Flexion 5 Normal Extension 5 Normal Right Great Toe Flexion 5 Normal Extension 5 Normal PT-OP-Q Treatments Start: 10/17/23 17:35 Freq: Status: Active Protocol: Document 11/13/23 08:09 AB (Rec: 11/13/23 09:46 AB [id number]) Therapeutic Exercises Standing Exercises Heel raise Standing Exercise Name single leg Side bilateral Equipment Used on step this session Reps/Minutes X10 each LE single leg squat with band Standing Exercise Name facing mirror Side bilateral Resistance light blue band Reps/Minutes X10 X 2 Comments Verbal and visual cues standing glute med activation Reps/Minutes one minute left and right LE X 1 Comments Pt ed rationale of one minute hold for activation. calf stretches Standing Exercise Name Soleus and gastroc Side bilateral Equipment Used MAXIMO Reps/Minutes X1 each 60 seconds Manual Therapy Treatment Soft Tissue Mobilization right foot Body Location plantar surface/calf muscles Mobilization Type Cross-Friction,Rolling Intensity/Depth Moderate Body Position Prone Comments increased focus on areas of increased tissue density decreased tissue mobility Self-Care/Home Management Treatment Education Other Education Patient ed to avoid increasing distance until pain with 1/2 mile decreases further. PT-OP-R Modalities Start: 10/17/23 17:35 Freq: Status: Active Protocol: Document 11/13/23 08:09 AB (Rec: 11/13/23 09:46 AB [id number]) Ultrasound Therapy Treatment Right Foot Patient Position Prone Applicator Size (cm2) 2 Frequency Setting (mHz) 3 Intensity Setting (w/cm2) 0.8 Comments 8 minutes PT-OP-T Assessment and Plan Start: 10/17/23 17:35 Freq: Status: Active Protocol: Document 11/13/23 08:09 AB (Rec: 11/13/23 09:46 AB [id number]) Physical Therapy Assessment Goals 2 Impairment Pt unable to run without burning in right plantar surface Impairment decreased pelvic floor endurance Half-Way Goal (LTG) Pt to report return to prior level of participation in running exercise with no increased symptoms of right plantar pain LTG Duration 12/18/23 1 Impairment Pt does not have an appropriate home exercise program Impairment urinary stress incontinence with running Short Term Goal (STG) Pt to be independent and compliant with appropriate HEP STG Duration 11/17/23 Assessment Summary Assessment Focus on strength/Single leg squat with band and glute med activation this session, strength takes 6-8 weeks to make a change in function. Pain post running persists, but pain with 1/2 mile was similar to 1/4 mile run performed prior to previous session ie pain not increasing with intensity with increased distance. Patient ed to avoid increasing distance until pain with 1/2 mile decreases further. Physical Therapy Plan Frequency and Duration Frequency of Treatment 2x/Week Plan of Care Start Date 10/17/23 Plan of Care End Date 12/17/23 Next Visit Focus/Plan Next Note Type Progress Note Next Visit Plan US, Dexamethasone/Ionto trial? , intrinsic foot strengthening as tolerated focus on balance next session
--- NOTE | 2023-11-21 16:34 | PT.OTN ---
Current Diagnoses Plantar fascial fibromatosis (11/21/23) Physical Therapy Treatment Note PT-OP-A Visit Information Start: 10/17/23 17:35 Freq: Status: Active Protocol: Document 11/21/23 14:28 AB (Rec: 11/21/23 16:34 AB [id number]) Out-Patient Physical Therapy Visit Information Visit Information Visit Type Treatment Note Visit Note Access Code [email or web address] Visit Start Time 15:15 Visit Stop Time 16:16 Visit Number 10 Number of SUSTAINABLE DEVELOPMENT POLICY ANALYST Visits 4 Evaluation Information Evaluation Date 10/17/23 PT-OP-B Current Condition Start: 10/17/23 17:35 Freq: Status: Active Protocol: Document 10/17/23 16:00 DCW (Rec: 10/18/23 12:38 DCW [id number]) Current Condition History of Current Condition Onset Date Five month history Current Complaints R foot pain History of Current Condition Pt is a 68 year old male presenting with a five month history of right plantar surface foot pain. Pt reports pain began in early June of this year, continued worsening until he saw Dr Solis in mid-July. Pt at that time was instructed to stop hiking and running for six weeks. Pain continued after his break from those activities, so pt has largely avoided them since. Eventually underwent an MRI, which showed a tear in his plantar fascia, as well as chronic fasciitis. Other than avoiding his usual exercise activities , his pain does not restrict his activity. When he walks, he experiences burning in his foot. More walking equals more burning. Has tried to return a bit to hiking/running, and while he does not have pain during, it does burn more later. Also green a lot in the morning when first standing up on his feet. Wears an ankle compression sleeve, but does not feel there is much benefit , as there is no real compression on the painful area, which is on the right plantar surface of the calcaneous, slightly medial to midline. Prior Treatments and Tests R foot MRI: IMPRESSION: 1. Partial tearing of the central band of the plantar fascia at its origin with surrounding soft tissue and osseous edema, superimposed on chronic fasciitis. No acute osseous fracture. No enhancing soft tissue mass. 2. Mild Achilles tendinosis. 3. Mild distal posterior tibialis tenosynovitis. 4. Mild degenerative changes in the forefoot. Roverto Fernandez M.D . on 09/10/2023 PT-OP-C Subjective Start: 10/17/23 17:35 Freq: Status: Active Protocol: Document 11/21/23 14:28 AB (Rec: 11/21/23 16:34 AB [id number]) OP-PT Subjective Patient Comments Patient Comments Patient reports burning pain post 3/4 mile run on [place] persists, but is 50% level that it was previous to PT, but also when he was running 4 miles previous to starting PT. Great toe 3 cm from wall with knee to wall prior to heel off floor PROM DF body over ankle movement post calf stretches pre Mulligan with movement. PT-OP-F Manual Assessment Start: 10/17/23 17:35 Freq: Status: Active Protocol: Document 10/17/23 16:00 DCW (Rec: 10/17/23 17:52 DCW [id number]) Manual Assessments Soft Tissue Assessment Soft Tissue Mobility Assessment Noticeable nodule on heel, right plantar surface medial from midline. Tenderness to palpation 2/4: Pain with wincing along that area. No tenderness elsewhere. PT-OP-K Range of Motion Start: 10/17/23 17:35 Freq: Status: Active Protocol: Document 10/17/23 16:00 DCW (Rec: 10/17/23 17:52 DCW [id number]) Ankle and Foot Goniometric Range of Motion Ankle and Foot Right Active Ankle/Foot ROM WFL Yes Testing Position Sitting Comments ROM WNL PT-OP-M Strength Start: 10/17/23 17:35 Freq: Status: Active Protocol: Document 10/17/23 16:00 DCW (Rec: 10/17/23 17:52 DCW [id number]) Ankle/Foot Strength Ankle and Foot Manual Muscle Testing Right Dorsiflexion (L4) 5 Normal Plantarflexion (S1) 5 Normal Inversion 5 Normal Eversion (S1) 5 Normal Toe Strength Toe Manual Muscle Testing Right 2nd Toe Flexion 5 Normal Extension 5 Normal Right Great Toe Flexion 5 Normal Extension 5 Normal PT-OP-Q Treatments Start: 10/17/23 17:35 Freq: Status: Active Protocol: Document 11/21/23 14:28 AB (Rec: 11/21/23 16:34 AB [id number]) Cardio Equipment Treadmill Duration (Minutes) 4 Speed 5.6 to 6.1 Incline 0 Other increased knee flexion, Narrow RODOLFO, quad dom pattern * increase forefoot ev Therapeutic Exercises Standing Exercises standing glute med activation Reps/Minutes one minute left and right LE X 1 Comments Pt ed rationale of one minute hold for activation. calf stretches Standing Exercise Name Soleus and gastroc Side bilateral Equipment Used MAXIMO Reps/Minutes X2 each 60 seconds Manual Therapy Treatment Soft Tissue Mobilization right foot Body Location plantar surface/calf muscles Mobilization Type Cross-Friction,Rolling Intensity/Depth Moderate Body Position Prone Comments increased focus on areas of increased tissue density decreased tissue mobility Joint Mobilizations Mulligan with movement TC mobilization Joint right TC joint Direction ap Grade IV Body Position Standing Reps/Duration 10X 3 Comments monitored for pain Neuro Re-Education Treatment Balance Activities SLS Details right LE Surface floor Reps/Duration 5 seconds with ipsilateral trunk sidebend femoral IR PT-OP-R Modalities Start: 10/17/23 17:35 Freq: Status: Active Protocol: Document 11/21/23 14:28 AB (Rec: 11/21/23 16:34 AB [id number]) Ultrasound Therapy Treatment Right Foot Patient Position Prone Applicator Size (cm2) 2 Frequency Setting (mHz) 3 Intensity Setting (w/cm2) 0.8 Comments 8 minutes PT-OP-T Assessment and Plan Start: 10/17/23 17:35 Freq: Status: Active Protocol: Document 11/21/23 14:28 AB (Rec: 11/21/23 16:34 AB [id number]) Physical Therapy Assessment Goals 2 Impairment Pt unable to run without burning in right plantar surface [facility] Goal (LTG) Pt to report return to prior level of participation in running exercise with no increased symptoms of right plantar pain 11/21/2023 Patient reports running 3/4 mile and walking on and incline 3X over past week, with burning plantar surface foot has improved 50%, taking into account frequence , duration and intensity. ( Patient was running minimum of 4 miles previous to this injury and hiked 5-8 miles twice a week. LTG Duration 12/18/23 1 Impairment Pt does not have an appropriate home exercise program Short Term Goal (STG) Pt to be independent and compliant with appropriate HEP Patient reports he is doing hip abduction at gym 3x week and band exercise twice a week . STG Duration 11/17/23 Assessment Summary Assessment great toe 4.5 cm from wall with knee to wall prior to heel off floor right LE end of session. Patient reports an ache in the heel when running on treadmill, and a burning in the arch end of session. Patient runs with forefoot eversion at push off, DF right ankle continues to be limited impaction gait pattern during running. Of note Fito comments his feet are too large to descend stairs normally, and descends with LE 's excessively toed out. Physical Therapy Plan Therapeutic Interventions Therapeutic Interventions Coordination Training,Gait Training,Home Exercise Program ,Joint Mobilizations,Manual Therapy,Neuromuscular Re- education,Patient/Caregiver Education,Self-Care/Home Management,Soft Tissue Mobilization,Therapeutic Activities,Therapeutic Exercises Modalities Cold Pack/Ice Massage,Electric Stimulation,Hot Packs, Iontophoresis,Ultrasound Other Therapeutic Interventions Iontophoresis with Dexamethasone, 10 mg/mL Next Visit Focus/Plan Next Note Type Treatment Note Next Visit Plan Next session, Monica with movement, add squats to HEP, Leg press, Balance US, Dexamethasone/Ionto trial? , intrinsic foot strengthening as tolerated focus on balance next session
--- NOTE | 2023-11-28 11:57 | PT.OTN ---
Current Diagnoses Plantar fascial fibromatosis (11/28/23) Physical Therapy Treatment Note PT-OP-A Visit Information Start: 10/17/23 17:35 Freq: Status: Active Protocol: Document 11/28/23 11:18 DCW (Rec: 11/28/23 11:57 DCW [id number]) Out-Patient Physical Therapy Visit Information Visit Information Visit Type Treatment Note Visit Start Time 11:18 Visit Stop Time 12:00 Visit Number 11 Number of SERVICE ESTABLISHMENT ATTENDANT Visits 0 Evaluation Information Evaluation Date 10/17/23 PT-OP-B Current Condition Start: 10/17/23 17:35 Freq: Status: Active Protocol: Document 10/17/23 16:00 DCW (Rec: 10/18/23 12:38 DCW [id number]) Current Condition History of Current Condition Onset Date Five month history Current Complaints R foot pain History of Current Condition Pt is a 68 year old male presenting with a five month history of right plantar surface foot pain. Pt reports pain began in early June of this year, continued worsening until he saw Dr Solis in mid-July. Pt at that time was instructed to stop hiking and running for six weeks. Pain continued after his break from those activities, so pt has largely avoided them since. Eventually underwent an MRI, which showed a tear in his plantar fascia, as well as chronic fasciitis. Other than avoiding his usual exercise activities , his pain does not restrict his activity. When he walks, he experiences burning in his foot. More walking equals more burning. Has tried to return a bit to hiking/running, and while he does not have pain during, it does burn more later. Also green a lot in the morning when first standing up on his feet. Wears an ankle compression sleeve, but does not feel there is much benefit , as there is no real compression on the painful area, which is on the right plantar surface of the calcaneous, slightly medial to midline. Prior Treatments and Tests R foot MRI: IMPRESSION: 1. Partial tearing of the central band of the plantar fascia at its origin with surrounding soft tissue and osseous edema, superimposed on chronic fasciitis. No acute osseous fracture. No enhancing soft tissue mass. 2. Mild Achilles tendinosis. 3. Mild distal posterior tibialis tenosynovitis. 4. Mild degenerative changes in the forefoot. Roverto Fernandez M.D . on 09/10/2023 PT-OP-C Subjective Start: 10/17/23 17:35 Freq: Status: Active Protocol: Document 11/28/23 11:18 DCW (Rec: 11/28/23 11:57 DCW [id number]) OP-PT Subjective Patient Comments Patient Comments Saw auth specialist yesterday, she 's threatening me with surgery , but pt trying a walking boot first. Has follow-up in three weeks to determine plan going forward. PT-OP-F Manual Assessment Start: 10/17/23 17:35 Freq: Status: Active Protocol: Document 10/17/23 16:00 DCW (Rec: 10/17/23 17:52 DCW [id number]) Manual Assessments Soft Tissue Assessment Soft Tissue Mobility Assessment Noticeable nodule on heel, right plantar surface medial from midline. Tenderness to palpation 2/4: Pain with wincing along that area. No tenderness elsewhere. PT-OP-K Range of Motion Start: 10/17/23 17:35 Freq: Status: Active Protocol: Document 10/17/23 16:00 DCW (Rec: 10/17/23 17:52 DCW [id number]) Ankle and Foot Goniometric Range of Motion Ankle and Foot Right Active Ankle/Foot ROM WFL Yes Testing Position Sitting Comments ROM WNL PT-OP-M Strength Start: 10/17/23 17:35 Freq: Status: Active Protocol: Document 10/17/23 16:00 DCW (Rec: 10/17/23 17:52 DCW [id number]) Ankle/Foot Strength Ankle and Foot Manual Muscle Testing Right Dorsiflexion (L4) 5 Normal Plantarflexion (S1) 5 Normal Inversion 5 Normal Eversion (S1) 5 Normal Toe Strength Toe Manual Muscle Testing Right 2nd Toe Flexion 5 Normal Extension 5 Normal Right Great Toe Flexion 5 Normal Extension 5 Normal PT-OP-Q Treatments Start: 10/17/23 17:35 Freq: Status: Active Protocol: Document 11/28/23 11:18 DCW (Rec: 11/28/23 11:57 DCW [id number]) Manual Therapy Treatment Soft Tissue Mobilization right foot Body Location plantar surface/calf muscles Mobilization Type Cross-Friction,Rolling Intensity/Depth Moderate Body Position Prone Comments increased focus on areas of increased tissue density decreased tissue mobility Joint Mobilizations Mulligan with movement TC mobilization Joint right TC joint Direction ap Grade IV Body Position Standing Reps/Duration 10X 3 Comments monitored for pain PT-OP-R Modalities Start: 10/17/23 17:35 Freq: Status: Active Protocol: Document 11/28/23 11:18 DCW (Rec: 11/28/23 11:57 [facility] [id number]) Ultrasound Therapy Treatment Right Foot Patient Position Prone Applicator Size (cm2) 2 Frequency Setting (mHz) 3 Intensity Setting (w/cm2) 0.8 Comments 8 minutes PT-OP-T Assessment and Plan Start: 10/17/23 17:35 Freq: Status: Active Protocol: Document 11/28/23 11:18 DCW (Rec: 11/28/23 11:57 [facility] [id number]) Physical Therapy Assessment Assessment Summary Assessment Limited treatment today to manual and US, due to auth specialist preference of pt in walking boot, so limiting active use and stretching at this time. Physical Therapy Plan Frequency and Duration Frequency of Treatment 2x/Week Plan of Care Start Date 10/17/23 Plan of Care End Date 12/17/23 Therapeutic Interventions Therapeutic Interventions Coordination Training,Gait Training,Home Exercise Program ,Joint Mobilizations,Manual Therapy,Neuromuscular Re- education,Patient/Caregiver Education,Self-Care/Home Management,Soft Tissue Mobilization,Therapeutic Activities,Therapeutic Exercises Modalities Cold Pack/Ice Massage,Electric Stimulation,Hot Packs, Iontophoresis,Ultrasound Other Therapeutic Interventions Iontophoresis with Dexamethasone, 10 mg/mL Next Visit Focus/Plan Next Note Type Progress Note Next Visit Plan US, Manual therapeutic intervention
--- NOTE | 2023-11-29 13:47 | PT.OTN ---
Current Diagnoses Plantar fascial fibromatosis (11/29/23) Physical Therapy Treatment Note PT-OP-A Visit Information Start: 10/17/23 17:35 Freq: Status: Active Protocol: Document 11/29/23 12:55 AB (Rec: 11/29/23 13:47 AB [id number]) Out-Patient Physical Therapy Visit Information Visit Information Visit Type Treatment Note Visit Start Time 13:04 Visit Stop Time 13:44 Visit Number 12 Number of MOLDER HELPER Visits 1 Evaluation Information Evaluation Date 10/17/23 PT-OP-B Current Condition Start: 10/17/23 17:35 Freq: Status: Active Protocol: Document 10/17/23 16:00 DCW (Rec: 10/18/23 12:38 DCW [id number]) Current Condition History of Current Condition Onset Date Five month history Current Complaints R foot pain History of Current Condition Pt is a 68 year old male presenting with a five month history of right plantar surface foot pain. Pt reports pain began in early June of this year, continued worsening until he saw Dr Solis in mid-July. Pt at that time was instructed to stop hiking and running for six weeks. Pain continued after his break from those activities, so pt has largely avoided them since. Eventually underwent an MRI, which showed a tear in his plantar fascia, as well as chronic fasciitis. Other than avoiding his usual exercise activities , his pain does not restrict his activity. When he walks, he experiences burning in his foot. More walking equals more burning. Has tried to return a bit to hiking/running, and while he does not have pain during, it does burn more later. Also green a lot in the morning when first standing up on his feet. Wears an ankle compression sleeve, but does not feel there is much benefit , as there is no real compression on the painful area, which is on the right plantar surface of the calcaneous, slightly medial to midline. Prior Treatments and Tests R foot MRI: IMPRESSION: 1. Partial tearing of the central band of the plantar fascia at its origin with surrounding soft tissue and osseous edema, superimposed on chronic fasciitis. No acute osseous fracture. No enhancing soft tissue mass. 2. Mild Achilles tendinosis. 3. Mild distal posterior tibialis tenosynovitis. 4. Mild degenerative changes in the forefoot. Roverto Fernandez M.D . on 09/10/2023 PT-OP-C Subjective Start: 10/17/23 17:35 Freq: Status: Active Protocol: Document 11/29/23 12:55 AB (Rec: 11/29/23 13:47 AB [id number]) OP-PT Subjective Patient Comments Patient Comments Patient reports the foot is the same. Patient reports there is a lot of slack in the boot, so he plans to swing by orthotics today. Patient reports the pain in the morning heel of foot and intermittent burning throughout the day PT-OP-F Manual Assessment Start: 10/17/23 17:35 Freq: Status: Active Protocol: Document 10/17/23 16:00 DCW (Rec: 10/17/23 17:52 DCW [id number]) Manual Assessments Soft Tissue Assessment Soft Tissue Mobility Assessment Noticeable nodule on heel, right plantar surface medial from midline. Tenderness to palpation 2/4: Pain with wincing along that area. No tenderness elsewhere. PT-OP-K Range of Motion Start: 10/17/23 17:35 Freq: Status: Active Protocol: Document 10/17/23 16:00 DCW (Rec: 10/17/23 17:52 DCW [id number]) Ankle and Foot Goniometric Range of Motion Ankle and Foot Right Active Ankle/Foot ROM WFL Yes Testing Position Sitting Comments ROM WNL PT-OP-M Strength Start: 10/17/23 17:35 Freq: Status: Active Protocol: Document 10/17/23 16:00 DCW (Rec: 10/17/23 17:52 DCW [id number]) Ankle/Foot Strength Ankle and Foot Manual Muscle Testing Right Dorsiflexion (L4) 5 Normal Plantarflexion (S1) 5 Normal Inversion 5 Normal Eversion (S1) 5 Normal Toe Strength Toe Manual Muscle Testing Right 2nd Toe Flexion 5 Normal Extension 5 Normal Right Great Toe Flexion 5 Normal Extension 5 Normal PT-OP-Q Treatments Start: 10/17/23 17:35 Freq: Status: Active Protocol: Document 11/29/23 12:55 AB (Rec: 11/29/23 13:47 AB [id number]) Manual Therapy Treatment Soft Tissue Mobilization right foot Body Location plantar surface/calf muscles Mobilization Type Cross-Friction,Myofascial Release,Rolling,Sustained Pressure Intensity/Depth Moderate Body Position Prone Comments increased focus on areas of increased tissue density decreased tissue mobility PT-OP-R Modalities Start: 10/17/23 17:35 Freq: Status: Active Protocol: Document 11/29/23 12:55 AB (Rec: 11/29/23 13:47 AB [id number]) Ultrasound Therapy Treatment Right Foot Patient Position Prone Applicator Size (cm2) 2 Frequency Setting (mHz) 3 Intensity Setting (w/cm2) 0.8 Comments 8 minutes PT-OP-T Assessment and Plan Start: 10/17/23 17:35 Freq: Status: Active Protocol: Document 11/29/23 12:55 AB (Rec: 11/29/23 13:47 AB [id number]) Physical Therapy Assessment Goals 2 Impairment Pt unable to run without burning in right plantar surface Impairment decreased pelvic floor endurance Retirement Goal (LTG) Pt to report return to prior level of participation in running exercise with no increased symptoms of right plantar pain 11/21/2023 Patient reports running 3/4 mile and walking on and incline 3X over past week, with burning plantar surface foot has improved 50%, taking into account frequence , duration and intensity. ( Patient was running minimum of 4 miles previous to this injury and hiked 5-8 miles twice a week. LTG Duration 12/18/23 1 Impairment Pt does not have an appropriate home exercise program Impairment urinary stress incontinence with running Short Term Goal (STG) Pt to be independent and compliant with appropriate HEP Patient reports he is doing hip abduction at gym 3x week and band exercise twice a week . STG Duration 11/17/23 Assessment Summary Assessment Treatment limited to manual and US this session due to Pt in walking boot. Patient reports burning in heel end of session ambulating out of session in walking boot without device Physical Therapy Plan Frequency and Duration Frequency of Treatment 2x/Week Plan of Care Start Date 10/17/23 Plan of Care End Date 12/17/23 Next Visit Focus/Plan Next Note Type Treatment Note Next Visit Plan US, Manual therapeutic intervention
--- NOTE | 2023-12-04 15:05 | PT.OTN ---
Current Diagnoses Plantar fascial fibromatosis (12/04/23) Physical Therapy Treatment Note PT-OP-A Visit Information Start: 10/17/23 17:35 Freq: Status: Active Protocol: Document 12/04/23 14:30 DCW (Rec: 12/04/23 15:05 DCW [id number]) Out-Patient Physical Therapy Visit Information Visit Information Visit Type Treatment Note Visit Start Time 14:30 Visit Stop Time 15:00 Visit Number 13 Number of CONSTRUCTION CODE ADMINISTRATOR Visits 0 Evaluation Information Evaluation Date 10/17/23 PT-OP-B Current Condition Start: 10/17/23 17:35 Freq: Status: Active Protocol: Document 10/17/23 16:00 DCW (Rec: 10/18/23 12:38 DCW [id number]) Current Condition History of Current Condition Onset Date Five month history Current Complaints R foot pain History of Current Condition Pt is a 68 year old male presenting with a five month history of right plantar surface foot pain. Pt reports pain began in early June of this year, continued worsening until he saw Dr Solis in mid-July. Pt at that time was instructed to stop hiking and running for six weeks. Pain continued after his break from those activities, so pt has largely avoided them since. Eventually underwent an MRI, which showed a tear in his plantar fascia, as well as chronic fasciitis. Other than avoiding his usual exercise activities , his pain does not restrict his activity. When he walks, he experiences burning in his foot. More walking equals more burning. Has tried to return a bit to hiking/running, and while he does not have pain during, it does burn more later. Also green a lot in the morning when first standing up on his feet. Wears an ankle compression sleeve, but does not feel there is much benefit , as there is no real compression on the painful area, which is on the right plantar surface of the calcaneous, slightly medial to midline. Prior Treatments and Tests R foot MRI: IMPRESSION: 1. Partial tearing of the central band of the plantar fascia at its origin with surrounding soft tissue and osseous edema, superimposed on chronic fasciitis. No acute osseous fracture. No enhancing soft tissue mass. 2. Mild Achilles tendinosis. 3. Mild distal posterior tibialis tenosynovitis. 4. Mild degenerative changes in the forefoot. Roverto Fernandez M.D . on 09/10/2023 PT-OP-C Subjective Start: 10/17/23 17:35 Freq: Status: Active Protocol: Document 12/04/23 14:30 DCW (Rec: 12/04/23 15:05 DCW [id number]) OP-PT Subjective Patient Comments Patient Comments It feels better, but I'm also not really doing anything with it. PT-OP-F Manual Assessment Start: 10/17/23 17:35 Freq: Status: Active Protocol: Document 10/17/23 16:00 DCW (Rec: 10/17/23 17:52 DCW [id number]) Manual Assessments Soft Tissue Assessment Soft Tissue Mobility Assessment Noticeable nodule on heel, right plantar surface medial from midline. Tenderness to palpation 2/4: Pain with wincing along that area. No tenderness elsewhere. PT-OP-K Range of Motion Start: 10/17/23 17:35 Freq: Status: Active Protocol: Document 10/17/23 16:00 DCW (Rec: 10/17/23 17:52 DCW [id number]) Ankle and Foot Goniometric Range of Motion Ankle and Foot Right Active Ankle/Foot ROM WFL Yes Testing Position Sitting Comments ROM WNL PT-OP-M Strength Start: 10/17/23 17:35 Freq: Status: Active Protocol: Document 10/17/23 16:00 DCW (Rec: 10/17/23 17:52 DCW [id number]) Ankle/Foot Strength Ankle and Foot Manual Muscle Testing Right Dorsiflexion (L4) 5 Normal Plantarflexion (S1) 5 Normal Inversion 5 Normal Eversion (S1) 5 Normal Toe Strength Toe Manual Muscle Testing Right 2nd Toe Flexion 5 Normal Extension 5 Normal Right Great Toe Flexion 5 Normal Extension 5 Normal PT-OP-Q Treatments Start: 10/17/23 17:35 Freq: Status: Active Protocol: Document 12/04/23 14:30 DCW (Rec: 12/04/23 15:05 DCW [id number]) Manual Therapy Treatment Soft Tissue Mobilization right foot Body Location plantar surface/calf muscles Mobilization Type Cross-Friction,Rolling Intensity/Depth Moderate Body Position Prone Comments increased focus on areas of increased tissue density decreased tissue mobility Joint Mobilizations Mulligan with movement TC mobilization Joint right TC joint Direction ap Grade IV Body Position Standing Reps/Duration 10X 3 Comments monitored for pain PT-OP-R Modalities Start: 10/17/23 17:35 Freq: Status: Active Protocol: Document 12/04/23 14:30 DCW (Rec: 12/04/23 15:05 DCW [id number]) Ultrasound Therapy Treatment Right Foot Patient Position Prone Applicator Size (cm2) 2 Frequency Setting (mHz) 3 Intensity Setting (w/cm2) 0.8 Comments 8 minutes PT-OP-T Assessment and Plan Start: 10/17/23 17:35 Freq: Status: Active Protocol: Document 12/04/23 14:30 DCW (Rec: 12/04/23 15:05 DCW [id number]) Physical Therapy Assessment Goals 2 Impairment Pt unable to run without burning in right plantar surface Impairment decreased pelvic floor endurance Airport Screener Goal (LTG) Pt to report return to prior level of participation in running exercise with no increased symptoms of right plantar pain 11/21/2023 Patient reports running 3/4 mile and walking on and incline 3X over past week, with burning plantar surface foot has improved 50%, taking into account frequence , duration and intensity. ( Patient was running minimum of 4 miles previous to this injury and hiked 5-8 miles twice a week. LTG Duration 12/18/23 1 Impairment Pt does not have an appropriate home exercise program Impairment urinary stress incontinence with running Short Term Goal (STG) Pt to be independent and compliant with appropriate HEP Patient reports he is doing hip abduction at gym 3x week and band exercise twice a week . STG Duration 11/17/23 Assessment Summary Assessment Continue to limit treatment due to underwriting consultant request to limit weight bearing and stretching. Pt has follow-up next week, will likely discuss plan going forward. Physical Therapy Plan Frequency and Duration Frequency of Treatment 2x/Week Plan of Care Start Date 10/17/23 Plan of Care End Date 12/17/23 Therapeutic Interventions Therapeutic Interventions Coordination Training,Gait Training,Home Exercise Program ,Joint Mobilizations,Manual Therapy,Neuromuscular Re- education,Patient/Caregiver Education,Self-Care/Home Management,Soft Tissue Mobilization,Therapeutic Activities,Therapeutic Exercises Modalities Cold Pack/Ice Massage,Electric Stimulation,Hot Packs, Iontophoresis,Ultrasound Other Therapeutic Interventions Iontophoresis with Dexamethasone, 10 mg/mL Next Visit Focus/Plan Next Note Type Treatment Note Next Visit Plan US, Manual therapeutic intervention
--- NOTE | 2023-12-11 15:57 | PT.OTN ---
Current Diagnoses Plantar fascial fibromatosis (12/11/23) Physical Therapy Treatment Note PT-OP-A Visit Information Start: 10/17/23 17:35 Freq: Status: Active Protocol: Document 12/11/23 15:17 DCW (Rec: 12/11/23 15:57 DCW [id number]) Out-Patient Physical Therapy Visit Information Visit Information Visit Type Treatment Note Visit Start Time 15:17 Visit Stop Time 15:45 Visit Number 14 Number of VELVET STEAMER Visits 0 Evaluation Information Evaluation Date 10/17/23 PT-OP-B Current Condition Start: 10/17/23 17:35 Freq: Status: Active Protocol: Document 10/17/23 16:00 DCW (Rec: 10/18/23 12:38 DCW [id number]) Current Condition History of Current Condition Onset Date Five month history Current Complaints R foot pain History of Current Condition Pt is a 68 year old male presenting with a five month history of right plantar surface foot pain. Pt reports pain began in early June of this year, continued worsening until he saw Dr Solis in mid-July. Pt at that time was instructed to stop hiking and running for six weeks. Pain continued after his break from those activities, so pt has largely avoided them since. Eventually underwent an MRI, which showed a tear in his plantar fascia, as well as chronic fasciitis. Other than avoiding his usual exercise activities , his pain does not restrict his activity. When he walks, he experiences burning in his foot. More walking equals more burning. Has tried to return a bit to hiking/running, and while he does not have pain during, it does burn more later. Also green a lot in the morning when first standing up on his feet. Wears an ankle compression sleeve, but does not feel there is much benefit , as there is no real compression on the painful area, which is on the right plantar surface of the calcaneous, slightly medial to midline. Prior Treatments and Tests R foot MRI: IMPRESSION: 1. Partial tearing of the central band of the plantar fascia at its origin with surrounding soft tissue and osseous edema, superimposed on chronic fasciitis. No acute osseous fracture. No enhancing soft tissue mass. 2. Mild Achilles tendinosis. 3. Mild distal posterior tibialis tenosynovitis. 4. Mild degenerative changes in the forefoot. Roverto Fernandez M.D . on 09/10/2023 PT-OP-C Subjective Start: 10/17/23 17:35 Freq: Status: Active Protocol: Document 12/11/23 15:17 DCW (Rec: 12/11/23 15:57 DCW [id number]) OP-PT Subjective Patient Comments Patient Comments Pt notes no changes, continues to not walk much. Sees retail reset merchandiser tomorrow, expects to be told to go through with surgery. PT-OP-F Manual Assessment Start: 10/17/23 17:35 Freq: Status: Active Protocol: Document 10/17/23 16:00 DCW (Rec: 10/17/23 17:52 DCW [id number]) Manual Assessments Soft Tissue Assessment Soft Tissue Mobility Assessment Noticeable nodule on heel, right plantar surface medial from midline. Tenderness to palpation 2/4: Pain with wincing along that area. No tenderness elsewhere. PT-OP-K Range of Motion Start: 10/17/23 17:35 Freq: Status: Active Protocol: Document 10/17/23 16:00 DCW (Rec: 10/17/23 17:52 DCW [id number]) Ankle and Foot Goniometric Range of Motion Ankle and Foot Right Active Ankle/Foot ROM WFL Yes Testing Position Sitting Comments ROM WNL PT-OP-M Strength Start: 10/17/23 17:35 Freq: Status: Active Protocol: Document 10/17/23 16:00 DCW (Rec: 10/17/23 17:52 DCW [id number]) Ankle/Foot Strength Ankle and Foot Manual Muscle Testing Right Dorsiflexion (L4) 5 Normal Plantarflexion (S1) 5 Normal Inversion 5 Normal Eversion (S1) 5 Normal Toe Strength Toe Manual Muscle Testing Right 2nd Toe Flexion 5 Normal Extension 5 Normal Right Great Toe Flexion 5 Normal Extension 5 Normal PT-OP-Q Treatments Start: 10/17/23 17:35 Freq: Status: Active Protocol: Document 12/11/23 15:17 DCW (Rec: 12/11/23 15:57 DCW [id number]) Manual Therapy Treatment Soft Tissue Mobilization right foot Body Location plantar surface/calf muscles Mobilization Type Cross-Friction,Rolling Intensity/Depth Moderate Body Position Prone Comments increased focus on areas of increased tissue density decreased tissue mobility PT-OP-R Modalities Start: 10/17/23 17:35 Freq: Status: Active Protocol: Document 12/11/23 15:17 DCW (Rec: 12/11/23 15:57 [facility] [id number]) Ultrasound Therapy Treatment Right Foot Patient Position Prone Applicator Size (cm2) 2 Frequency Setting (mHz) 3 Intensity Setting (w/cm2) 0.8 Comments 8 minutes PT-OP-T Assessment and Plan Start: 10/17/23 17:35 Freq: Status: Active Protocol: Document 12/11/23 15:17 DC (Rec: 12/11/23 15:57 [facility] [id number]) Physical Therapy Assessment Goals 2 Impairment Pt unable to run without burning in right plantar surface Impairment decreased pelvic floor endurance Shelter Goal (LTG) Pt to report return to prior level of participation in running exercise with no increased symptoms of right plantar pain 11/21/2023 Patient reports running 3/4 mile and walking on and incline 3X over past week, with burning plantar surface foot has improved 50%, taking into account frequence , duration and intensity. ( Patient was running minimum of 4 miles previous to this injury and hiked 5-8 miles twice a week. LTG Duration 12/18/23 1 Impairment Pt does not have an appropriate home exercise program Impairment urinary stress incontinence with running Short Term Goal (STG) Pt to be independent and compliant with appropriate HEP Patient reports he is doing hip abduction at gym 3x week and band exercise twice a week . STG Duration 11/17/23 Assessment Summary Assessment Hopeful follow-up with retail reset merchandiser tomorrow will help with plan going forward, currently limiting weight- bearing and stretching in order to allow for rest of plantar fascia Physical Therapy Plan Frequency and Duration Frequency of Treatment 2x/Week Plan of Care Start Date 10/17/23 Plan of Care End Date 12/17/23 Therapeutic Interventions Therapeutic Interventions Coordination Training,Gait Training,Home Exercise Program ,Joint Mobilizations,Manual Therapy,Neuromuscular Re- education,Patient/Caregiver Education,Self-Care/Home Management,Soft Tissue Mobilization,Therapeutic Activities,Therapeutic Exercises Modalities Cold Pack/Ice Massage,Electric Stimulation,Hot Packs, Iontophoresis,Ultrasound Other Therapeutic Interventions Iontophoresis with Dexamethasone, 10 mg/mL Next Visit Focus/Plan Next Note Type Treatment Note Next Visit Plan US, Manual therapeutic intervention
--- NOTE | 2024-01-03 17:23 | PT.OTN ---
Current Diagnoses Plantar fascial fibromatosis (01/03/24) Physical Therapy Treatment Note PT-OP-A Visit Information Start: 10/17/23 17:35 Freq: Status: Active Protocol: Document 01/03/24 16:50 DCW (Rec: 01/03/24 17:23 DCW [id number]) Out-Patient Physical Therapy Visit Information Visit Information Visit Type Progress Note Visit Start Time 16:50 Visit Stop Time 17:15 Visit Number 15 Number of BOILERMAKER'S ASSISTANT Visits 0 Evaluation Information Evaluation Date 10/17/23 PT-OP-B Current Condition Start: 10/17/23 17:35 Freq: Status: Active Protocol: Document 10/17/23 16:00 DCW (Rec: 10/18/23 12:38 DCW [id number]) Current Condition History of Current Condition Onset Date Five month history Current Complaints R foot pain History of Current Condition Pt is a 68 year old male presenting with a five month history of right plantar surface foot pain. Pt reports pain began in early June of this year, continued worsening until he saw Dr Solis in mid-July. Pt at that time was instructed to stop hiking and running for six weeks. Pain continued after his break from those activities, so pt has largely avoided them since. Eventually underwent an MRI, which showed a tear in his plantar fascia, as well as chronic fasciitis. Other than avoiding his usual exercise activities , his pain does not restrict his activity. When he walks, he experiences burning in his foot. More walking equals more burning. Has tried to return a bit to hiking/running, and while he does not have pain during, it does burn more later. Also green a lot in the morning when first standing up on his feet. Wears an ankle compression sleeve, but does not feel there is much benefit , as there is no real compression on the painful area, which is on the right plantar surface of the calcaneous, slightly medial to midline. Prior Treatments and Tests R foot MRI: IMPRESSION: 1. Partial tearing of the central band of the plantar fascia at its origin with surrounding soft tissue and osseous edema, superimposed on chronic fasciitis. No acute osseous fracture. No enhancing soft tissue mass. 2. Mild Achilles tendinosis. 3. Mild distal posterior tibialis tenosynovitis. 4. Mild degenerative changes in the forefoot. Roverto Fernandez M.D . on 09/10/2023 PT-OP-C Subjective Start: 10/17/23 17:35 Freq: Status: Active Protocol: Document 01/03/24 16:50 DCW (Rec: 01/03/24 17:23 DCW [id number]) OP-PT Subjective Patient Comments Patient Comments Despite ~3 week break from PT, new walking boot, still minimal changes. Pt reports it was recommended he go through with surgical intervention. Still trying to decide. PT-OP-F Manual Assessment Start: 10/17/23 17:35 Freq: Status: Active Protocol: Document 01/03/24 16:50 DCW (Rec: 01/03/24 17:18 DCW [id number]) Manual Assessments Soft Tissue Assessment Soft Tissue Mobility Assessment Noticeable nodule on heel, right plantar surface medial from midline. Tenderness to palpation 2/4: Pain with wincing PT-OP-K Range of Motion Start: 10/17/23 17:35 Freq: Status: Active Protocol: Document 01/03/24 16:50 DCW (Rec: 01/03/24 17:18 DCW [id number]) Ankle and Foot Goniometric Range of Motion Ankle and Foot Right Active Ankle/Foot ROM WFL Yes Testing Position Sitting Comments ROM WNL PT-OP-M Strength Start: 10/17/23 17:35 Freq: Status: Active Protocol: Document 01/03/24 16:50 DCW (Rec: 01/03/24 17:18 DCW [id number]) Ankle/Foot Strength Ankle and Foot Manual Muscle Testing Right Dorsiflexion (L4) 5 Normal Plantarflexion (S1) 5 Normal Inversion 5 Normal Eversion (S1) 5 Normal PT-OP-Q Treatments Start: 10/17/23 17:35 Freq: Status: Active Protocol: Document 01/03/24 16:50 DCW (Rec: 01/03/24 17:23 DCW [id number]) Manual Therapy Treatment Soft Tissue Mobilization right foot Body Location plantar surface/calf muscles Mobilization Type Cross-Friction,Rolling Intensity/Depth Moderate Body Position Prone Comments increased focus on areas of increased tissue density decreased tissue mobility PT-OP-R Modalities Start: 10/17/23 17:35 Freq: Status: Active Protocol: Document 01/03/24 16:50 DCW (Rec: 01/03/24 17:23 DCW [id number]) Ultrasound Therapy Treatment Right Foot Patient Position Prone Applicator Size (cm2) 2 Frequency Setting (mHz) 3 Intensity Setting (w/cm2) 0.8 Comments 8 minutes PT-OP-T Assessment and Plan Start: 10/17/23 17:35 Freq: Status: Active Protocol: Document 01/03/24 16:50 DCW (Rec: 01/03/24 17:23 DCW [id number]) Physical Therapy Assessment Goals 2 Impairment Pt unable to run without burning in right plantar surface Care Home Goal (LTG) Pt to report return to prior level of participation in running exercise with no increased symptoms of right plantar pain 11/21/2023 Patient reports running 3/4 mile and walking on and incline 3X over past week, with burning plantar surface foot has improved 50%, taking into account frequence , duration and intensity. ( Patient was running minimum of 4 miles previous to this injury and hiked 5-8 miles twice a week. LTG Duration Unchanged 1 Impairment Pt does not have an appropriate home exercise program Short Term Goal (STG) Pt to be independent and compliant with appropriate HEP Patient reports he is doing hip abduction at gym 3x week and band exercise twice a week . STG Duration MET Assessment Summary Assessment Pt largely unchanges since beginning therapy. Will discharge from skilled therapy at this time. Pt understands he will need a new referral in order to return in the future if needed. Physical Therapy Plan Frequency and Duration Frequency of Treatment 2x/Week Plan of Care Start Date 01/03/24 Plan of Care End Date 01/04/24 Therapeutic Interventions Therapeutic Interventions Coordination Training,Gait Training,Home Exercise Program ,Joint Mobilizations,Manual Therapy,Neuromuscular Re- education,Patient/Caregiver Education,Self-Care/Home Management,Soft Tissue Mobilization,Therapeutic Activities,Therapeutic Exercises Modalities Cold Pack/Ice Massage,Electric Stimulation,Hot Packs, Iontophoresis,Ultrasound Other Therapeutic Interventions Iontophoresis with Dexamethasone, 10 mg/mL Discharge Physical Therapy Discharge Reasons Plateau in Progress Next Visit Focus/Plan Next Note Type Discharge Summary
== END 2024-01-07 13:48 | disposition home or self-care (01) ==
LOC: PHYS 16:45
PROVIDERS: Family Provider Family Medicine; PCP Family Medicine; Referring Provider Podiatrist; Visit Provider Podiatrist
DX: M72.2 Plantar fascial fibromatosis (principal)
CPT/HCPCS: 97035; 97110; 97140; 97161

== ENCOUNTER → 2024-04-07 07:38 | Outpatient (CLI) | payer MEDICARE, OTHER, SELFPAY ==
[2024-04-07 09:15] LABS: Add Manual Diff / Slide Review NO; Basophils Absolute Auto 100 /uL (0-100); Basophils Percent Auto 2.1 % (0-2); Eosinophils Absolute Auto 200 /uL (0-450); Eosinophils Percent Auto 4.2 % (2-4); Hematocrit 48.8 % (41-53); Hemoglobin 16.3 g/dL (13.5-17.5); Lymphocytes Absolute Auto 1900 /uL (1100-4500); Lymphocytes Percent Auto 33.5 % (25-40); Mean Corpuscular HGB Conc 33.4 % (30-36); Mean Corpuscular Volume 86.9 fL (80-100); Monocytes Absolute Auto 500 /uL (0-900); Monocytes Percent Auto 9.4 % (3-14); Neutrophils Absolute Auto 2900 /uL (1500-7000); Neutrophils Percent Auto 50.8 % (50-75); Platelet Count 198 X10^3/uL (150-400); Red Blood Cell Count 5.62 X10^6/uL (4.5-5.9); Red Cell Distribution Width 13.7 % (11.6-14.8); White Blood Cell Count 5.8 X10^3/uL (4.5-11.0)
[2024-04-07 09:52] LABS: Alanine Aminotransferase 24 IU/L (<50); Albumin 4.2 g/dL (3.5-5.0); Albumin Globulin Ratio 1.8 (1.0-2.8); Alkaline Phosphatase 56 U/L (38-126); Aspartate Aminotransferase 28 IU/L (17-59); BUN Creatinine Ratio 18.4 (6-22); Bilirubin Total 0.5 mg/dL (0.2-1.3); Blood Urea Nitrogen 19 mg/dL (9-20); Calcium 9.5 mg/dL (8.4-10.2); Carbon Dioxide 25 mmol/L (22-32); Chloride 106 mmol/L (98-107); Cholesterol 187 mg/dL (140-199); Estimated Glomerular Filt Rate > 60 mL/min (>60); Globulin 2.4 g/dL (1.7-4.1); Glucose 97 mg/dL (80-110); HDL Cholesterol 42 mg/dL (40-60); HEMOLYSIS < 15 (0-50); LDL Cholesterol Calculated 116 mg/dL (<100); Potassium 4.2 mmol/L (3.4-5.1); Sodium 140 mmol/L (137-145); Total Protein 6.6 g/dL (6.3-8.2); Triglycerides 145 mg/dL (35-150)
[2024-04-07 10:20] LABS: Creatinine Urine Random 246.55 mg/dL
[2024-04-07 10:27] LABS: Microalbumin Urine Random 1.3 mg/dL (0-1.6)
[2024-04-08 03:12] LABS: Apolipoprotein B 102 mg/dL (<90)
== END ==
PROVIDERS: Family Provider Family Medicine; PCP Family Medicine; Referring Provider Family Medicine; Visit Provider Family Medicine
DX: N39.3 Stress incontinence (female) (male) (principal); E34.9 Endocrine disorder, unspecified; R06.2 Wheezing; E78.2 Mixed hyperlipidemia
CPT/HCPCS: 36415; 80053; 80061; 82043; 82172; 82570; 85025

== ENCOUNTER → 2024-04-11 13:09 | Outpatient (CLI) | payer MEDICARE, OTHER, SELFPAY ==
[2024-04-11 15:36] LABS: Prostate Specific Antigen Scrn 0.081 ng/mL (0.1-4.0)
== END ==
PROVIDERS: Family Provider Family Medicine; PCP Family Medicine; Referring Provider Family Medicine; Visit Provider Family Medicine
DX: Z12.5 Encounter for screening for malignant neoplasm of prostate (principal)
CPT/HCPCS: 36415; G0103

== ENCOUNTER → 2024-04-17 08:17 | Outpatient (CLI) | payer MEDICARE, OTHER, SELFPAY ==
--- NOTE | 2024-04-17 08:18 | DI.RAD.S_ITS ---
PROCEDURE: XR CERVICAL SPINE 2V OR 3V INDICATIONS: chronic neck pain TECHNIQUE: 3 view(s) of the cervical spine were acquired. COMPARISON: None. FINDINGS: Bones: No fractures or dislocations to the T1 level. The lateral masses of C1 appear intact on the odontoid view. No suspicious bony lesions. Scattered degenerative disc space narrowing most prominent C5-6 and C6-7. Multilevel uncovertebral hypertrophy. Soft tissues: No prevertebral soft tissue swelling. IMPRESSION: Degenerative changes most severe at C5-6 and C6-7. Dictated by: Taryn White M.D. on 04/17/2024 at 19:43 Approved by: Taryn White M.D. on 04/17/2024 at 19:44
== END ==
PROVIDERS: Family Provider Family Medicine; PCP Family Medicine; Referring Provider Family Medicine; Visit Provider Family Medicine
DX: M47.812 Spondylosis without myelopathy or radiculopathy, cervical region (principal); M48.02 Spinal stenosis, cervical region; M54.2 Cervicalgia; G89.29 Other chronic pain
CPT/HCPCS: 72040

== ENCOUNTER → 2024-05-26 16:03 | Outpatient (CLI) | payer MEDICARE, OTHER, SELFPAY ==
[2024-05-26 17:08] LABS: Influenza A - CEPHEID Flu A NEGATIVE (NEGATIVE); Influenza B - CEPHEID Flu B NEGATIVE (NEGATIVE); Respiratory Syncytial Virus Negative (Negative)
[2024-05-26 17:36] LABS: COVID-19 CEPHEID 4-PLEX PCR POSITIVE (Negative)
== END ==
PROVIDERS: Family Provider Family Medicine; PCP Family Medicine; Visit Provider Nurse Practitioner Family
DX: J02.9 Acute pharyngitis, unspecified (principal); R05.1 Acute cough
CPT/HCPCS: 0241U; 87070

== ENCOUNTER → 2024-06-16 12:00 | Outpatient (CLI) | payer MEDICARE, OTHER, SELFPAY ==
--- NOTE | 2024-06-16 12:02 | DI.CT.S_ITS ---
PROCEDURE: CT ABDOMEN PELVIS W CON INDICATIONS: low density area of liver TECHNIQUE: After the administration of intravenous contrast, axial sections acquired from the lung bases to the pubic symphysis. Coronal and sagittal reformats were performed. For radiation dose reduction, the following was used: automated exposure control, adjustment of mA and/or kV according to patient size. COMPARISON: Outside Facility, RG, CT CALCIUM SCORING, 05/24/2024, 15:18. FINDINGS: Image quality: Diagnostic. Lower Chest: No significant findings. ABDOMEN: Liver: Multiple small well-circumscribed hepatic hypodensities throughout the liver. These have the appearance of benign cysts. Less likely biliary hamartomas. Gallbladder: No radiopaque gallstones or wall thickening. Biliary ducts: No biliary dilation. Pancreas: No ductal dilation. Spleen: Size is within normal limits. Adrenal Glands: No adrenal nodules. Kidneys and Ureters: No hydronephrosis. No solid mass. No complex renal cystic lesion which requires follow up. Stomach and Bowel: Sigmoid colon anastomosis. No diverticulitis. No mass identified. The appendix is absent. No small bowel obstruction. The stomach is not distended. Duodenum is unremarkable. Peritoneum: No abnormal intraperitoneal fluid. No free air. Ventral Wall: No significant ventral hernia. Abdominal Nodes: No retroperitoneal or mesenteric adenopathy by size criteria. Vessels: Aorta and inferior vena cava are normal in size. PELVIS: Pelvic Organs: Prostate gland is absent. Multiple clips. Bladder: No bladder wall thickening. No stone. Pelvic Nodes: No enlarged lymph nodes. Miscellaneous: No inguinal hernias are seen. Thickening at the right inguinal canal, (6/134). Suspect that this is related to prior hernia repair plug. Bones: No aggressive osseous abnormality. IMPRESSION: 1. No mass or adenopathy. Benign hepatic cysts. 2. Findings of partial colectomy, prostatectomy, appendectomy, and right inguinal hernia repair. Dictated by: Todd De La Paz M.D. on 06/16/2024 at 15:11 Approved by: Todd De La Paz M.D. on 06/16/2024 at 15:21
[2024-06-16 12:32] LABS: Estimated Glomerular Filt Rate > 60 mL/min (>60)
== END ==
PROVIDERS: Radiology Diagnostic Radiology; Family Provider Family Medicine; PCP Family Medicine; Referring Provider Family Medicine; Visit Provider Family Medicine
DX: R93.89 Abnormal findings on diagnostic imaging of other specified body structures (principal); K76.89 Other specified diseases of liver; Z90.49 Acquired absence of other specified parts of digestive tract; Z98.0 Intestinal bypass and anastomosis status; Z90.79 Acquired absence of other genital organ(s)
CPT/HCPCS: 36415; 74177; 82565; Q9967

== ENCOUNTER → 2024-07-22 08:30 | Outpatient (CLI) | payer MEDICARE, OTHER, SELFPAY ==
[2024-07-22 09:48] LABS: Prostate Specific Antigen 0.078 ng/mL (0.10-4.00)
[2024-07-22 09:50] LABS: Testosterone 551 ng/dL (71.8-623)
== END ==
LOC: LAB 08:31
PROVIDERS: Family Provider Family Medicine; PCP Family Medicine; Referring Provider Urology; Visit Provider Urology
DX: C61 Malignant neoplasm of prostate (principal); E34.9 Endocrine disorder, unspecified
CPT/HCPCS: 36415; 84153; 84403

== ENCOUNTER → 2024-12-09 10:13 | Outpatient (CLI) | payer MEDICARE, OTHER, SELFPAY ==
[2024-12-09 11:57] LABS: Alanine Aminotransferase 24 IU/L (<50); Albumin 4.4 g/dL (3.5-5.0); Albumin Globulin Ratio 1.8 (1.0-2.8); Alkaline Phosphatase 55 U/L (38-126); Blood Urea Nitrogen 14 mg/dL (9-20); Calcium 9.4 mg/dL (8.4-10.2); Carbon Dioxide 28 mmol/L (22-32); Chloride 105 mmol/L (98-107); Cholesterol 179 mg/dL (140-199); Estimated Glomerular Filt Rate > 60 mL/min (>60); Globulin 2.4 g/dL (1.7-4.1); Glucose 93 mg/dL (70-99); HDL Cholesterol 39 mg/dL (40-60); HEMOLYSIS < 15 (0-50); Potassium 4.3 mmol/L (3.4-5.1); Sodium 139 mmol/L (137-145); Total Protein 6.8 g/dL (6.3-8.2); Triglycerides 124 mg/dL (35-150)
== END ==
PROVIDERS: Family Provider Family Medicine; PCP Family Medicine; Referring Provider Family Medicine; Visit Provider Family Medicine
DX: E78.5 Hyperlipidemia, unspecified (principal); E34.9 Endocrine disorder, unspecified; M54.50 Low back pain, unspecified; G89.29 Other chronic pain; M72.2 Plantar fascial fibromatosis; M54.2 Cervicalgia
CPT/HCPCS: 36415; 80053; 80061; 82172

== ENCOUNTER → 2024-12-22 15:06 | Outpatient (CLI) | payer MEDICARE, OTHER, SELFPAY | LOC: CAR 15:07 | PROVIDERS: Family Provider Family Medicine; PCP Family Medicine; Referring Provider Family Medicine; Visit Provider Family Medicine | DX: R00.2 Palpitations (principal) | CPT/HCPCS: 93246 ==

== ENCOUNTER → 2025-03-05 16:10 | Outpatient (CLI) | payer MEDICARE, OTHER, SELFPAY | PROVIDERS: Family Provider Family Medicine; PCP Family Medicine; Visit Provider Nurse Practitioner Family | DX: J02.9 Acute pharyngitis, unspecified (principal) | CPT/HCPCS: 87070; 87880 ==

== ENCOUNTER → 2025-04-11 08:27 | Outpatient (CLI) | payer MEDICARE, OTHER, SELFPAY ==
[2025-04-11 10:14] LABS: Add Manual Diff / Slide Review NO; Hematocrit 49.3 % (41-53); Hemoglobin 16.8 g/dL (13.5-17.5); Lymphocytes Absolute Auto 1300 /uL (1100-4500); Mean Corpuscular HGB Conc 34.1 % (30-36); Mean Corpuscular Hemoglobin 29.0 PG (26-34); Mean Corpuscular Volume 85.2 fL (80-100); Platelet Count 211 X10^3/uL (150-400)
[2025-04-11 10:29] LABS: Alanine Aminotransferase 24 IU/L (<50); Albumin 4.8 g/dL (3.5-5.0); Albumin Globulin Ratio 1.8 (1.0-2.8); Alkaline Phosphatase 58 U/L (38-126); Blood Urea Nitrogen 14 mg/dL (9-20); Calcium 9.5 mg/dL (8.4-10.2); Carbon Dioxide 27 mmol/L (22-32); Chloride 105 mmol/L (98-107); Cholesterol 190 mg/dL (140-199); Estimated Glomerular Filt Rate > 60 mL/min (>60); Globulin 2.7 g/dL (1.7-4.1); Glucose 106 mg/dL (70-99); HDL Cholesterol 53 mg/dL (40-60); HEMOLYSIS 16 (0-50); Potassium 4.3 mmol/L (3.4-5.1); Sodium 141 mmol/L (137-145); Total Protein 7.5 g/dL (6.3-8.2); Triglycerides 107 mg/dL (35-150)
[2025-04-11 11:05] LABS: TSH w/ Reflex to FT4 0.89 uIU/mL (0.47-4.68)
== END ==
PROVIDERS: Family Provider Family Medicine; PCP Family Medicine; Referring Provider Family Medicine; Visit Provider Family Medicine
DX: Z13.29 Encounter for screening for other suspected endocrine disorder (principal); E78.2 Mixed hyperlipidemia; C61 Malignant neoplasm of prostate; N52.31 Erectile dysfunction following radical prostatectomy; E34.9 Endocrine disorder, unspecified; R00.2 Palpitations
CPT/HCPCS: 36415; 80053; 80061; 84443; 85025